=== PATIENT | male | born 1940 | race Caucasian/White ===

== ENCOUNTER → 2016-04-23 | Outpatient (CLI) | payer OTHER, MEDICARE ==
--- NOTE | 2016-04-23 15:36 | DI ---
PA /LATERAL CHEST X-RAY, 04/23/2016 2:19 PM : Clinical History: Pneumonia. Previous Exam: 08/02/2015; 03/17/2016. There is no acute soft tissue or bony abnormality. Heart size is normal. The right diaphragm remains elevated and there is persistent discoid atelectasis in the right midlung field, probably in the righ t middle lobe. This may have developed into atelectatic scarring. Similar discoid changes are present in the left costophrenic angle. No acute infiltrate is present. There is "tram tracking" in both low er lobes consistent with chronic bronchitis or bronchiectasis. Mediastinal structures are normal. The re are no pulmonary nodules. Readin. No acute infiltrate or effusion is present. There is "tram tracking" consistent with chronic bron chitis or bronchiectasis. There has been no significant interval change. 2. Persistent right midlung field and left costophrenic angle discoid atelectasis and these may actu ally represent atelectatic scarring. 3. Persistent elevation of the right hemidiaphragm.
== END ==
LOC: RAD 14:07
PROVIDERS: ATTEND Family Medicine
DX: J18.9 Pneumonia, unspecified organism (principal)
CPT/HCPCS: 71020

== ENCOUNTER 2016-04-25 14:58 | Emergency (ER) | payer OTHER, MEDICARE ==
--- NOTE | 2016-04-25 15:13 | PDOC ---
Neck Pain / Injury HPI - General Chief Complaint: Neck / Back Complaint Stated Complaint: RIGHT SIDED NECK PAIN INTO SHOULDER/BACK Date Seen by Provider: 04/25/16 Time Seen by Provider: 15:13 Source: POSITIVE: Patient Exam Limitations: POSITIVE: No limitations Nurse's Notes Reviewed & Considered: Yes - History of Present Illness Initial Comments: Patient comes in today complaining of right-sided neck pain. Patient states he went to bed last night with his neck hurting mildly when he woke up this morning he is having significant increased pain which has escalated during the day with decreased range of motion secondary to the pain he is now to the point he is unable to put a jacket on without assistance because of pain in his neck. He denies any fever or chills or sweats, nausea vomiting or diarrhea, no rashes. Body Location Affected: REPORTS: Neck Timing: REPORTS: Abrupt, Upon Awakening, Changing Over Time, Getting Worse Severity: Moderate Quality: REPORTS: Cramping, "Pain", Stabbing Duration: <24 hours Context: REPORTS: None Recent Injury: REPORTS: No Location at Time of Onset: REPORTS: Home Modifying Factors: improves with: Movement, Rest (Worse with movement better with rest.) Associated Symptoms: REPORTS: Denies symptoms Similar Symptoms Previously: No Recent Care Received: REPORTS: Denies Any Prior Injuries Related to Current Complaint?: No - Patient Home Medications Home Medications: Home Medications Aspirin [Aspirin EC] 81 mg PO DAILY tab 10/12/12 Multivits,Ca,Min/Iron/FA/Lycop [Centrum Ultra Men's Tablet] 1 tab PO DAILY 09/06 Cholecalciferol (Vitamin D3) [Vitamin D3] 1 tab PO QD #30 tab 11/07/14 Docusate Sodium [Stool Softener] 2 tab PO QHS #60 tab 04/14/15 Ibuprofen 4 tab PO BID #240 tab 04/14/15 Tiotropium Inhalation Cap [Spiriva Inhalation Cap] 18 mcg INH RTDAILY #1 inhaler 08/04/15 Potassium Chloride 1 cap PO 3XW #12 cap 08/24/15 Glipizide/Metformin HCl [Glipizide-Metformin 5-500 mg] 2 tab PO BID #360 tab Fluticasone/Salmeterol [Advair 500-50 Diskus] 1 puff INH BID PRN #3 inhaler Sitagliptin Phosphate [Januvia] 1 tab PO QD #90 tab 12/18/15 Atorvastatin Calcium 1 tab PO QHS #30 tab 03/11/16 Lisinopril 1 tab PO QD #30 tab 03/11/16 Furosemide 1 tab PO 3XW #12 tab 04/15/16 Carvedilol [Coreg] 1 tab PO BID #60 tab 04/16/16 - Patient Allergies Allergies/Adverse Reactions: Allergies Allergy/AdvReac Type Severity Reaction Status Date / Time Tetanus Vaccines and Toxoid AdvReac Severe SWELLING/ Verified 04/25/16 15:13 [Tetanus Vaccines \\E\\T\\E\\ MUSCLE Toxoid] RIGIDITY Past Medical History - heen HEENT History: Cataracts, Hard of Hearing Additional HEENT History: left removed Cardiovascular History: Hypertension, Hyperlipidemia Additional Cardiovasular History: [place]?, CHF? Respiratory History: Pneumonia Gastrointestinal History: Denies History Additional Gastrointestinal History: H/O ULCERS Genitourinary History: Denies History Endocrine History: Type 2 Diabetes (oral) Musculoskeletal History: Arthritis, Gout Prosthesis or Implant: No Neurological History: Denies History Blood Disorders: Denies History Psychiatric History: Denies History History of Sexually Transmitted Diseases: No Cancer History: Denies History History of MDRO: No History of Other Communicable Diseases: No Alcohol Use: Rarely Substance Use Type: None Previous Surgical History: Yes Type / Date of Surgery: APPY Anesthesia Reactions: No Malignant Hyperthermia: No Significant Family History: Heart disease, Cancer, Diabetes, Lung disease ROS - Limitations ROS Limitations: No Limitations Constitution: REPORTS: Denies Symptoms Cardiovascular: REPORTS: Denies Cardiac Symptoms Respiratory: REPORTS: Denies Resp Symptoms Neurological: REPORTS: Denies Neuro Symptoms Gastrointestinal: REPORTS: Denies GI Symptoms Endocrine: REPORTS: Denies Symptoms Musculoskeletal: REPORTS: Muscle Aches, Neck Pain Genitourinary: REPORTS: Denies Symptoms Eyes: REPORTS: Denies Symptoms ENT: REPORTS: Denies Symptoms Skin: REPORTS: Denies Skin Symptoms Lympathic: REPORTS: Denies Lympathic Symptoms Immunologic: POSITIVE: Denies Symptoms Psychiatric: POSITIVE: Denies Psych Symptoms Neck Pain/Injury Exam - General Appearance General Appearance: REPORTS: Alert, Cooperative, No Evidence of Trauma - HEENT HEENT: POSITIVE: Head Inspection Nml, Eyes Inspection Nml, Ears Inspection Nml, Nose Inspection Nml, PERRL, EOMI - Pupil Size Pupil Size: 4 mm: Bilateral - Neck Neck: POSITIVE: Normal Inspection, Thyroid Normal, Muscle Spasm (Right sternocleidomastoid muscle) - Back Back: REPORTS: Normal Inspection, No CVA Tenderness, Non Tender - Respiratory / CVS Respiratory / CVS: POSITIVE: Chest Non Tender, No Ecchymosis, Breath Sounds Normal, No Respiratory Distress, Heart Sounds Normal, Regular Rate/Rhythm - Abdomen Abdomen: Soft: (All Quadrants), Normal Bowel Sounds: (All Quadrants), Denies Tenderness: (All Quadrants) - Skin Skin: REPORTS: Intact, Normal For Race, Warm, Dry, No Rash - Extremities Extremity Assessment: Non-Tender: (ALL), Normal ROM: (ALL), No Edema: (ALL) - Neurological / Psychological Neuro / Psych: POSITIVE: Oriented x3, Motor Normal Neck Pain/Injury Progress - Patient's Progress Pain Medication Addressed: POSITIVE: Yes Status: POSITIVE: Improved MDM / ED Course: Patient was examined, and received oral [place] and Ativan. His symptoms significantly improved. Assessment: Sternocleidomastoid muscle spasm on the right. Plan: Discharge home with prescription for pain medicine and prescription for muscle relaxant. Follow-up with primary care physician. - Consult Counseled: POSITIVE: Patient, Family, RE: DX, RE: Need for F/U Patient Care Time - Estimated PCT Patient Care Time (In Minutes): 10 Vital Signs - Recent Vital Signs Vital Signs: Vital Signs (Last 8 hours) Temp Pulse Resp BP Pulse Ox 04/25/16 14:58 97.7 F 82 22 148/87 91 - VS Reviewed Vital Signs Reviewed: Yes Discharge Clinical Impression: Cervical muscle pain Discharge Disposition: Discharged to Home Condition: Good Patient Instructions Given at Discharge: Cervical Strain (ED)
[2016-04-25] MEDS ORDERED: LORazepam 1 MG TABLET PO ONE (15:37)
[2016-04-25] MEDS ORDERED: HYDROcodone-APAP 5 MG -325 MG TABLET PO SCH (15:45)
[2016-04-25 15:58] VITALS: RESP 22; TEMP 97.7
== END 2016-04-25 16:22 | disposition home or self-care (01) ==
LOC: ER 14:58
DX: M54.2 Cervicalgia (principal); E11.9 Type 2 diabetes mellitus without complications
CPT/HCPCS: 99282; 99283

== ENCOUNTER → 2016-05-16 | Outpatient (CLI) | payer OTHER, MEDICARE ==
[2016-05-16 12:39] LABS: HEMOGLOBIN A1C 7.62 % (4.2-6.0); MEAN BLOOD GLUCOSE (CALC) 167.746 mg/dL
[2016-05-16 12:52] LABS: BUN/CREATININE RATIO 35.71 (6-20); CALCIUM 10.3 mg/dL (8.7-10.7); CREATININE 0.7 mg/dL (0.70-1.50); POTASSIUM 4.8 meq/L (3.8-5.2)
== END ==
LOC: MOB LAB 10:50
DX: E11.9 Type 2 diabetes mellitus without complications (principal); I10 Essential (primary) hypertension; E78.5 Hyperlipidemia, unspecified; E66.9 Obesity, unspecified
CPT/HCPCS: 36415; 80048; 83036; 84443; 99213; G0463

== ENCOUNTER → 2016-08-13 | Outpatient (CLI) | payer OTHER, MEDICARE ==
[2016-08-13 11:44] LABS: BASOPHILS # (AUTO) 0.09 10*3/UL; BASOPHILS % (AUTO) 0.8 % (0-1); EOSINOPHILS # (AUTO) 0.29 10*3/UL; EOSINOPHILS % (AUTO) 2.4 % (0-8); HEMATOCRIT 46.4 % (42.0-52.0); HEMOGLOBIN 15.3 g/dL (14.0-18.0); LYMPHOCYTES # (AUTO) 2.05 10*3/uL; MEAN CORPUSCULAR HEMOGLOBIN 30.1 PG (27-31); MEAN CORPUSCULAR VOLUME 91.3 FL (80-90); MEAN PLATELET VOLUME 9.8 FL (7.4-12.2); MONOCYTES # (AUTO) 0.94 10*3/UL (0.3-0.8); MONOCYTES % (AUTO) 7.9 % (5-15); NEUTROPHILS # (AUTO) 8.48 10*3/UL; NEUTROPHILS % (AUTO) 71.3 % (50-80); RED BLOOD COUNT 5.08 10^6/uL (4.70-6.10)
[2016-08-13 11:46] LABS: PLATELET MORPHOLOGY COMMENT NORMAL MORPHOLOGY (NORM); RBC MORPHOLOGY COMMENT NORMAL MORPHOLOGY (NORM); WBC MORPHOLOGY COMMENT NORMAL MORPHOLOGY (NORM)
[2016-08-13 12:07] LABS: BUN/CREATININE RATIO 31.25 (6-20)
== END ==
LOC: MOB LAB 10:37
DX: E11.9 Type 2 diabetes mellitus without complications (principal); I50.9 Heart failure, unspecified
CPT/HCPCS: 36415; 80048; 85025

== ENCOUNTER 2016-09-06 12:33 | Emergency (ER) | payer OTHER, MEDICARE ==
[2016-09-06] MEDS ORDERED: NORMAL SALINE 10 ML SYRINGE FLUSH IVP PRN (13:07)
[2016-09-06 13:12] VITALS: RESP 22
--- NOTE | 2016-09-06 13:27 | EKG ---
[address] [address] Measurements Intervals [place] Rate: 85 P: 5 [place]: 219 QRS: 38 QRSD: 116 T: 53 QT: 344 QTc: 386 Interpretive Statements SINUS RHYTHM WITH FIRST DEGREE AV BLOCK MODERATE INTRAVENTRICULAR CONDUCTION DELAY [110+ ms QRS DURATION] NONSPECIFIC T-WAVE ABNORMALITY Compared to ECG 03/17/2016 05:36:15 First degree AV block now present Intraventricular conduction delay now present T-wave abnormality now present Sinus tachycardia no longer present Left bundle-branch block no longer present Electronically Signed On 09-09-16 10:09:25 MDT by Dashawn Salazar MD [email or web address]
[2016-09-06 13:40] LABS: BASOPHILS # (AUTO) 0.06 10*3/UL; BASOPHILS % (AUTO) 0.7 % (0-1); EOSINOPHILS # (AUTO) 0.14 10*3/UL; EOSINOPHILS % (AUTO) 1.5 % (0-8); HEMATOCRIT 44.7 % (42.0-52.0); HEMOGLOBIN 14.8 g/dL (14.0-18.0); LYMPHOCYTES # (AUTO) 1.86 10*3/uL; MEAN CORPUSCULAR HGB CONC 33.1 g/dL (33-37); MEAN CORPUSCULAR VOLUME 90.5 FL (80-90); MONOCYTES # (AUTO) 0.75 10*3/UL (0.3-0.8); MONOCYTES % (AUTO) 8.1 % (5-15); NEUTROPHILS # (AUTO) 6.39 10*3/UL; NEUTROPHILS % (AUTO) 69.2 % (50-80); RED BLOOD COUNT 4.94 10^6/uL (4.70-6.10)
[2016-09-06 13:43] LABS: PLATELET MORPHOLOGY COMMENT NORMAL MORPHOLOGY (NORM); RBC MORPHOLOGY COMMENT NORMAL MORPHOLOGY (NORM); WBC MORPHOLOGY COMMENT NORMAL MORPHOLOGY (NORM)
[2016-09-06 13:49] LABS: BUN/CREATININE RATIO 21.25 (6-20); CALCIUM 9.3 mg/dL (8.7-10.7)
--- NOTE | 2016-09-06 14:00 | DI ---
PA /LATERAL CHEST X-RAY, 09/06/2016 1:08 PM : Clinical History: History of CHF. Weakness. Previous Exam: 08/02/2015; 03/17/2016; 04/23/2016. There is no acute soft tissue or bony abnormality. Heart size is normal. The right diaphragm remains elevated and there is some atelectasis in the region of the right middle lobe. This has been present on all prior films without change in this probably represents atelectatic scarring. No acute infiltra te or effusion is present. Mediastinal structures are normal. There are no pulmonary nodules. Readin. There is no acute infiltrate or effusion. 2. Probable atelectatic scarring of the right middle lobe.
--- NOTE | 2016-09-06 14:04 | DI ---
CT HEAD SCAN WITHOUT IV CONTRAST, 09/06/2016 1:08 PM : Clinical History: Head trauma. The patient fell. Previous Exam: None at this facility. Scans are obtained from the foramen magnum to the vertex without IV contrast. The 4th, 3rd, and lateral ventricles are of normal size, shape, position, and contour for the patient 's age. There is no evidence of an acute intracranial hemorrhagic focus. There is a 3 mm lucent area in the right basal ganglia that may represent an old lacunar infarct. No definite stigmata of small v essel ischemic disease is noted in the periventricular white matter in the watershed territory. There is mild to moderate cerebellar and cerebral atrophy. There are no extracerebral mantles or shift of the midline structures. Bone window evaluation is normal. The paranasal sinuses are normal. READIN. There is no acute intracranial hemorrhagic focus. 2. 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 3. Mild to moderate cerebellar and cerebral atrophy.
--- NOTE | 2016-09-06 14:34 | DI ---
DUPLEX COLOR DOPPLER CAROTID ULTRASOUND, 09/06/2016 1:09 PM: Clinical History: Near syncope with head turning. Previous Exam: None at this facility. Technique: 2D real time imaging is supplemented with duplex color doppler ultrasound imaging. RIGHT CAROTID ARTERY: 2D real time imaging of the right carotid system shows minimal intimal thickening of the common carot id artery with a small calcified plaque in the carotid bulb. There is a small calcified plaque at the origin of the right internal carotid artery. Peak systolic velocities through the right common carot id, the external carotid, and the internal carotid are 75 cm/s, 100 cm/s, and 70 cm/s, respectively. All values correspond to diameter stenoses of 0-49%. LEFT CAROTID ARTERY: 2D real time imaging of the left carotid system shows minimal intimal thickening of the left common c arotid artery in the proximal and middle portions with calcified plaques in the distal third as well as in the carotid bulb. Peak systolic velocities through the left common carotid, the external caroti d, and the internal carotid are 91 cm/s, 110 cm/s, and 79 cm/s, respectively. All values correspond t o diameter stenoses of 0-49%. VERTEBRAL ARTERIES: There is antegrade flow through both vertebral arteries Cardiac rhythm is regular. Peak systolic [place] through the visualized portions of the right and left vertebral arteries are 34 cm/s and 38 cm /s, respectively. Both values correspond to diameter stenoses of 0-49%. Readin. There is no hemodynamically significant stenosis of either carotid system. 2. There is antegrade flow through both vertebral arteries. Cardiac rhythm is regular.
--- NOTE | 2016-09-06 15:26 | PDOC ---
Syncope/Near-Syncope HPI - General Chief Complaint: Head Problem / Injury Stated Complaint: fell 2 days ago, syncope when laying down Date Seen by Provider: 09/06/16 Time Seen by Provider: 12:25 Source: POSITIVE: Patient, Other ([id number]) Exam Limitations: POSITIVE: No limitations Nurse's Notes Reviewed & Considered: Yes - History of Present Illness Initial Comments: The patient is a 75-year-old male who is brought to the emergency room by his [id number]. Patient states that approximately 3-1/2 days ago he was working in his garden and states he "fell over backwards"and struck the back of his head on a concrete patio. Patient had a similar episode in the past, which required suturing of the laceration of the scalp. Patient states that he has had episodes of "feeling like I'm going to pass out", especially when he is lying down or rotates his body either to the right or the left. Patient has a history of adult onset diabetes mellitus for which he takes Sitaglipin and glipizide/metformin. He also has a history of congestive heart failure for which he takes furosemide and carvidilol. He also takes Spiriva inhaler and Advair, potassium supplements, lisinopril and aspirin daily. Patient denies any headache. No focal neurologic symptoms. No EENT symptoms. He denies any chest pain or dyspnea. Body Location Affected: REPORTS: Scalp (Contusion to back of head from recent fall), Other (Syncope/near syncope as above) Timing: REPORTS: Abrupt (As above), Intermittent Duration: <1 week (Patient states he's been symptomatic intermittently for the last 3-4 days) Severity: Moderate Quality: REPORTS: Other (Patient denies any pain anywhere) Context: REPORTS: Lying Down, Standing Symptoms Prior to Episode: DENIES: None, Headache, Lightheaded, Visual Disturbance, Nausea, Vomiting, Chest Pain, Palpitations, Racing Heart, Abd Pain , Back Pain, Long Period of Standing, Other Duration of Preceding Symptoms (in Minutes): 1 Character of Event(s): REPORTS: Collapsed, [place] Faint, Almost Passed Out, Other (May have had a syncopal episode with his fall 3-1/2 days ago) Duration of LOC (minutes): 0 [employer]: No Associated Symptoms: REPORTS: None (feels back to nml) Recently seen/treated/hospitalized: No Any Prior Injuries Related to Current Complaint?: No - Patient Home Medications Home Medications: Home Medications Aspirin [Aspirin EC] 81 mg PO DAILY tab 10/12/12 Multivits,Ca,Min/Iron/FA/Lycop [Centrum Ultra Men's Tablet] 1 tab PO DAILY 09/06 Cholecalciferol (Vitamin D3) [Vitamin D3] 1 tab PO QD #30 tab 11/07/14 Docusate Sodium [Stool Softener] 2 tab PO QHS #60 tab 04/14/15 Ibuprofen 4 tab PO BID #240 tab 04/14/15 Tiotropium Inhalation Cap [Spiriva Inhalation Cap] 18 mcg INH RTDAILY #1 inhaler 08/04/15 Fluticasone/Salmeterol [Advair 500-50 Diskus] 1 puff INH BID PRN #3 inhaler Sitagliptin Phosphate [Januvia] 1 tab PO QD #90 tab 12/18/15 Atorvastatin Calcium 1 tab PO QHS #30 tab 03/11/16 Lisinopril 1 tab PO QD #30 tab 03/11/16 Furosemide 1 tab PO 3XW #12 tab 04/15/16 Carvedilol [Coreg] 1 tab PO BID #60 tab 04/16/16 Potassium Chloride 1 cap PO 3XW #12 cap 06/13/16 Glipizide/Metformin HCl [Glipizide-Metformin 5-500 Mg] 2 tab PO BID #360 tab - Patient Allergies Allergies/Adverse Reactions: Allergies Allergy/AdvReac Type Severity Reaction Status Date / Time Tetanus Vaccines and Toxoid AdvReac Severe SWELLING/ Verified 09/06/16 12:39 [Tetanus Vaccines MUSCLE \\E\\E\\E\\T\\E\\E\\E\\ Toxoid] RIGIDITY Past Medical History - heen HEENT History: Cataracts, Hard of Hearing Additional HEENT History: left removed Cardiovascular History: Hypertension, CHF, Hyperlipidemia Additional Cardiovasular History: [place]?, CHF? Respiratory History: COPD, Pneumonia Gastrointestinal History: Denies History Additional Gastrointestinal History: H/O ULCERS Genitourinary History: Denies History Endocrine History: Type 2 Diabetes (oral) Musculoskeletal History: Arthritis, Gout Prosthesis or Implant: No Additional Musculoskeletal History: BRUISING AND SCABBING TO THE BACK OF THE HEAD FROM AND ASSOCIATED FALL. PATIENT FELL BACKWARDS AND STRUCK HIS HEAD ON HIS CONCRETE PATIO Neurological History: Denies History Blood Disorders: Denies History Psychiatric History: Denies History History of Sexually Transmitted Diseases: No Male Reproductive History: Denies History Cancer History: Denies History In Past Year Been Physically Harmed or Verbally Threatened: No History of MDRO: No History of Other Communicable Diseases: No Tobacco Use: Never Smoker Alcohol Use: Rarely Substance Use Type: None Previous Surgical History: Yes Type / Date of Surgery: APPY Anesthesia Reactions: No Malignant Hyperthermia: No Significant Family History: Heart disease, Cancer, Diabetes, Lung disease Past Medical History Reviewed: Reviewed - No Changes ROS - Limitations ROS Limitations: No Limitations Constitution: REPORTS: Weakness Cardiovascular: REPORTS: Denies Cardiac Symptoms Respiratory: REPORTS: Denies Resp Symptoms Neurological: REPORTS: Fainting Gastrointestinal: REPORTS: Denies GI Symptoms Endocrine: REPORTS: Denies Symptoms Musculoskeletal: REPORTS: Denies MS Symptoms Genitourinary: REPORTS: Denies Symptoms Eyes: REPORTS: Denies Symptoms ENT: REPORTS: Denies Symptoms Skin: REPORTS: Other (Contusion and abrasion back of head from recent fall as above) Lympathic: REPORTS: Denies Lympathic Symptoms Immunologic: POSITIVE: Denies Symptoms Psychiatric: POSITIVE: Denies Psych Symptoms Syncope / Near-Syncope Exam - General Appearance General Appearance: POSITIVE: Alert, Cooperative, No Acute Distress. NEGATIVE: No Evidence of Trauma (Contusion/abrasion back of head from recent fall) - HEENT HEENT: POSITIVE: Head Inspection Nml, Eyes Inspection Nml, Ears Inspection Nml, Nose Inspection Nml, Oral/Dental Inspect. Nml, Pharynx Inspect. Nml, PERRL, EOMI - Pupil Size Pupil Size: 4 mm: Bilateral (PERRLA) - Neck / Back Neck/Back: POSITIVE: Supple, Non-Tender, No Carotid Bruit - Respiratory Respiratory: POSITIVE: No Respiratoy Distress, Breath Sounds Normal, No Pleuritic Chest Pain - Cardiovascular Cardiovascular: POSITIVE: Regular Rate and Rhythm, Heart Sounds Normal, Equal Pulses, Strong Pulses Peripheral Pulses: Radial (R): 2+, Radial (L): 2+ - Abdomen Abdomen: Soft: (All Quadrants), Normal Bowel Sounds: (All Quadrants), Denies Tenderness: (All Quadrants), No Splenomegaly: (All Quadrants), No Hepatomegaly: (All Quadrants), No Guarding: (All Quadrants), No Rebound: (All Quadrants), No Palpable Pulse: (All Quadrants), No Palpabale Mass: (All Quadrants), No Distention: (All Quadrants), No Rigidity: (All Quadrants) - Skin Skin: POSITIVE: Other (Normal except for contusion/abrasion back of head from recent fall) - Extremities Extremity: Non-Tender: (All Extremities), Normal ROM: (All Extremities), Normal Inspection: (All Extremities) - Neuro / Psych Higher Functions: POSITIVE: Oriented to Person, Oriented to Place, Oriented to Time, Normal Speech, Normal Cognition, Appropriate Mood, Appropriate Affect. NEGATIVE: Disoriented to Person, Disoriented to Place, Disoriented to Time, Speech Abnormalities, Cognition Abnormalities, Depressed Mood, Depressed Affect , Abnml Response to Command, No Response to Command, Eyes Open to Command, Slow Response to Command, Inapp Response to Command, Expressive Aphasia, Receptive Aphasia, Abnml Response to Pain, Withdraws to Pain, Flexor to Pain, Extensor to Pain, No Response to Pain, Dysarthria, Other Cranial Nerves: POSITIVE: Normal As Tested, No Evidence of Acute CVA Cerebellar: POSITIVE: Normal As Tested Sensorimotor: POSITIVE: No Motor Deficits, No Sensory Deficits, Reflexes Normal , Symmetrical Images - Head Head: 1 - Contusion/abrasion Syncope/Near-Syncope Progress - Results Reviewed by me Xrays/CTs/US Reviewed by me: Yes Discussed with Radiologist: Yes Radiology Findings: CT scan head without contrast read as normal by radiologist. Carotid artery ultrasound is read by radiologist as showing no hemodynamically significant stenosis of either carotid system with antegrade flow through both vertebral arteries. Chest x-ray normal. Lab Results Reviewed: Yes (elevated BNP) Lab Results:: Laboratory Results 09/06/16 Range/Units 13:37 WBC 9.23 (4.8-10.8) 10^3/uL RBC 4.94 (4.70-6.10) 10^6/uL Hgb 14.8 (14.0-18.0) g/dL Hct 44.7 (42.0-52.0) % MCV 90.5 H (80-90) FL MCH 30.0 (27-31) PG MCHC 33.1 (33-37) g/dL RDW Std Deviation 44.8 (39-50) fL RDW Coeff of Sandra 13.8 (11.5-14.5) % Plt Count 267 (140-350) 10*3/uL MPV 9.0 (7.4-12.2) FL Immature Gran % (Auto) 0.3 (0-5) % Neut % (Auto) 69.2 (50-80) % Lymph % (Auto) 20.2 (10-50) % [place] % (Auto) 8.1 (5-15) % Eos % (Auto) 1.5 (0-8) % Baso % (Auto) 0.7 (0-1) % Immature Gran # (Auto) 0.03 10*3/UL Neut # (Auto) 6.39 10*3/UL Lymph # (Auto) 1.86 10*3/uL [place] # (Auto) 0.75 (0.3-0.8) 10*3/UL Eos # (Auto) 0.14 10*3/UL Baso # (Auto) 0.06 10*3/UL WBC Morphology Comment Normal morphology (NORM) Plt Morphology Comment Normal morphology (NORM) RBC Morph Comment Normal morphology (NORM) Sodium 136 (135-145) meq/L Potassium 4.6 (3.8-5.2) meq/L Chloride 102 (98-112) meq/L Carbon Dioxide 24 (23-33) meq/L Anion Gap 10 (5-20) BUN 17 (7-22) mg/dL Creatinine 0.8 (0.70-1.50) mg/dL Estimated GFR (>60 ml/min/1.73m(2)) BUN/Creatinine Ratio 21.25 H (6-20) Glucose 210 H (78-110) mg/dL Calculated Osmolality 289.0 (267-292) mOsm/kg Calcium 9.3 (8.7-10.7) mg/dL Total Bilirubin 0.8 (0.3-1.2) mg/dL AST 30 (21-57) IU/L ALT 34 (21-72) IU/L Alkaline Phosphatase 65 (38-126) IU/L Troponin I < 0.012 (< 0.040) ng/mL NT-Pro-B Natriuret Pep 1750 H (0-450) PG/ML Total Protein 7.8 (6.1-8.0) g/dL Albumin 4.0 (3.5-4.8) g/dL Globulin 3.9 (2.50-4.10) g/dL Albumin/Globulin Ratio 1.00 L (1.3-2.0) mg/g TSH 1.98 (0.2700-4.2000) uIU/mL EKG Interpreted/Reviewed By Me:: Yes (initial EKG shows normal sinus rhythm with interventricular conduction luc) EKG Interpretation:: POSITIVE: Normal Sinus Rhythm, Normal Rate, Normal ST/T, Abnormal EKG, Repeat EKG (Patient was kept on monitor and storage bin tender. 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 Patient would intermittently go into a left bundle-branch block with a first-degree A-V block and then would have one or 2 PVCs and would go back into his original rhythm. This change was documented on 3 electrocardiograms.). NEGATIVE: Normal Intervals (Interventricular conduction delay), Normal Junction, Normal QRS - Patient's Progress Pain Medication Addressed: POSITIVE: Not Applicable School/Work Release Addressed: POSITIVE: Not Applicable Re-examine Time: 14:45 Re-Examine Comment: I'm concerned that the patient's episodes of syncope/near syncope could be due to dysrhythmia, especially complete heart block, in view of the patient's documented change in conduction from interventricular conduction delay to left ventricular bundle-branch block associated with a first -degree atrioventricular block. Discussed case with Dr. Katz, cardiology at [facility], and patient is transferred to that facility for further evaluation. Status: POSITIVE: Unchanged - Consult Consult (If Yes, Name of Consulting MD & Time Called): Yes (Dr. sherman, cardiology, 1500) Consulting MD will see pt:: POSITIVE: Recommended Transfer Counseled: POSITIVE: Patient, Family, RE: Lab Results, RE: Radiology Results, RE : DX, RE: Need for F/U Patient Care Time - Estimated PCT Patient Care Time (In Minutes): 65 Vital Signs - Recent Vital Signs Vital Signs: Vital Signs (Last 8 hours) Temp Pulse Pulse Pulse Pulse Resp BP 09/06/16 13:16 88 92 100 148/84 09/06/16 12:34 97.7 F 92 22 BP BP BP Pulse Ox 09/06/16 13:16 140/76 118/68 09/06/16 12:34 138/69 91 - VS Reviewed Vital Signs Reviewed: Yes Discharge Clinical Impression: Near syncope, Congestive heart failure, Abnormal electrocardiography Discharge Disposition: Transferred to Short Term Facility Condition: Fair Date Decision to Transfer to Another Facility: 09/06/16 Time Decision to Transfer to Another Facility: 14:50
[2016-09-06 15:49] VITALS: TEMP 97.8
--- NOTE | 2016-09-06 15:58 | EKG ---
[address] [place] [address] Measurements Intervals [place] Rate: 83 P: 0 [place]: 188 QRS: -35 QRSD: 170 T: 103 QT: 421 QTc: 461 Interpretive Statements SINUS RHYTHM MARKED LEFT AXIS DEVIATION [QRS AXIS < -30] LEFT BUNDLE BRANCH BLOCK [120+ ms QRS DURATION, 80+ ms Q/S IN V1/V2, 85+ ms R IN I/aVL/V5/V6] Compared to ECG 09/06/2016 13:25:13 Left-axis deviation now present Left bundle-branch block now present First degree AV block no longer present Intraventricular conduction delay no longer present T-wave abnormality no longer present Electronically Signed On 09-09-16 10:10:24 MDT by Dashawn Salazar MD [id number]
== END 2016-09-06 15:40 | disposition short-term general hospital (02) ==
LOC: ER 12:33
DX: R55 Syncope and collapse (principal); I11.9 Hypertensive heart disease without heart failure; I50.9 Heart failure, unspecified; R94.31 Abnormal electrocardiogram [ECG] [EKG]; S00.01XA Abrasion of scalp, initial encounter; S00.03XA Contusion of scalp, initial encounter; R79.89 Other specified abnormal findings of blood chemistry; E78.5 Hyperlipidemia, unspecified; E11.9 Type 2 diabetes mellitus without complications; W18.39XA Other fall on same level, initial encounter
CPT/HCPCS: 70450; 71020; 80053; 83880; 84443; 84484; 85025; 93005; 93010; 93880; 99284

== ENCOUNTER 2016-09-19 07:08 | Emergency (ER) | payer OTHER, MEDICARE ==
[2016-09-19] MEDS ORDERED: MECLIZINE 25 MG CHEWABLE TABLET PO ONE (07:38)
[2016-09-19] MEDS ORDERED: ONDANSETRON 4 MG/2 ML VIAL IVP ONE (07:38)
[2016-09-19] MEDS ORDERED: Sodium Chloride 0.9% 1,000 ML PRIMARY IV ONE (07:38)
--- NOTE | 2016-09-19 07:41 | EKG ---
[address] [address] Measurements Intervals [place] Rate: 82 P: 7 W[place]: 215 QRS: 19 QRSD: 113 T: 0 QT: 337 QTc: 376 Interpretive Statements SINUS RHYTHM WITH FIRST DEGREE AV BLOCK WITH OCCASIONAL VENTRICULAR PREMATURE COMPLEXES WITH MARKED RHYTHM IRREGULARITY, POSSIB MODERATE INTRAVENTRICULAR CONDUCTION DELAY [105+ ms QRS DURATION, 80+ ms Q/S IN V1/V2, NO Q AND 60+ ms R IN I/aVL/V5/V6] NONSPECIFIC T-WAVE ABNORMALITY Compared to ECG 09/06/2016 14:33:48 Ventricular premature complex(es) now present First degree AV block now present Intraventricular conduction delay now present T-wave abnormality now present Left-axis deviation no longer present Left bundle-branch block no longer present Electronically Signed On 09-19-16 13:23:48 MDT by Dashawn Salazar MD [id number]
--- NOTE | 2016-09-19 07:44 | PDOC ---
Dizziness HPI - General Chief Complaint: Neurological Complaints Stated Complaint: weak, dizziness Date Seen by Provider: 09/19/16 Time Seen by Provider: 07:39 Source: POSITIVE: Patient Exam Limitations: POSITIVE: No limitations Nurse's Notes Reviewed & Considered: Yes - History of Present Illness Initial Comments: This pleasant 75-year-old male comes in today with a chief complaint of dizziness. Patient has been having dizziness ongoing since which was 16 days ago. He spent a week in the hospital at [place], was discharged a week ago on diazepam 2.5 mg, this was increased yesterday to 5 mg. He woke up this morning, as began to get up his dizziness was significantly worse. He states when he lies down flat his dizziness is significantly worse and that he is afraid he will pass out. If he lies on his left or right side or is sitting up he has no problems with near syncope. He denies any headache, changes in his vision, sore throat, no chest pain or cough, he does have shortness of breath. He denies any nausea vomiting or diarrhea, no abdominal pain, no hematuria or dysuria, no rashes. Body Location Affected: REPORTS: Head Timing: REPORTS: Constant, Getting Worse Duration: >1 week Severity: Severe Context: REPORTS: Fall, Recent Head Injury/Trauma Quality: REPORTS: Other (Dizziness) Associated Symptoms: REPORTS: Light Headedness Current Ability to Walk/Stand: REPORTS: Off Balance Usual Ability to Walk/Stand: REPORTS: Walks w/o Assistance Aggrevated by: REPORTS: Nothing Similar Symptoms Previously: Yes Recently seen/treated/hospitalized: Yes Any Prior Injuries Related to Current Complaint?: No - Patient Home Medications Home Medications: Home Medications Aspirin [Aspirin EC] 81 mg PO DAILY tab 10/12/12 Multivits,Ca,Min/Iron/FA/Lycop [Centrum Ultra Men's Tablet] 1 tab PO DAILY 09/06 Cholecalciferol (Vitamin D3) [Vitamin D3] 1 tab PO QD #30 tab 11/07/14 Docusate Sodium [Stool Softener] 2 tab PO QHS #60 tab 04/14/15 Ibuprofen 4 tab PO BID #240 tab 04/14/15 Sitagliptin Phosphate [Januvia] 1 tab PO QD #90 tab 12/18/15 Furosemide 1 tab PO 3XW #12 tab 04/15/16 Carvedilol [Coreg] 1 tab PO BID #60 tab 04/16/16 Potassium Chloride 1 cap PO 3XW #12 cap 06/13/16 Glipizide/Metformin HCl [Glipizide-Metformin 5-500 Mg] 2 tab PO BID #360 tab Atorvastatin Calcium 1 tab PO QHS #30 tab 09/09/16 Lisinopril 1 tab PO QD #30 tab 09/09/16 Diazepam 5 mg PO BID 09/19/16 - Patient Allergies Allergies/Adverse Reactions: Allergies Allergy/AdvReac Type Severity Reaction Status Date / Time Tetanus Vaccines and Toxoid AdvReac Severe SWELLING/ Verified 09/19/16 07:26 [Tetanus Vaccines MUSCLE \E\E\E\T\E\E\E\ Toxoid] RIGIDITY Past Medical History - heen HEENT History: Cataracts, Hard of Hearing Additional HEENT History: left removed Cardiovascular History: Hypertension, CHF, Hyperlipidemia Additional Cardiovasular History: LA?, CHF? Respiratory History: COPD, Pneumonia Gastrointestinal History: Denies History Additional Gastrointestinal History: H/O ULCERS Genitourinary History: Denies History Endocrine History: Type 2 Diabetes (oral) Musculoskeletal History: Arthritis, Gout Prosthesis or Implant: No Additional Musculoskeletal History: BRUISING AND SCABBING TO THE BACK OF THE HEAD FROM AND ASSOCIATED FALL. PATIENT FELL BACKWARDS AND STRUCK HIS HEAD ON HIS CONCRETE PATIO Neurological History: Denies History Blood Disorders: Denies History Psychiatric History: Denies History History of Sexually Transmitted Diseases: No Cancer History: Denies History History of MDRO: No History of Other Communicable Diseases: No Alcohol Use: Rarely Substance Use Type: None Previous Surgical History: Yes Type / Date of Surgery: APPY Anesthesia Reactions: No Malignant Hyperthermia: No Significant Family History: Heart disease, Cancer, Diabetes, Lung disease ROS - Limitations ROS Limitations: No Limitations Constitution: REPORTS: Denies Symptoms Cardiovascular: REPORTS: Denies Cardiac Symptoms Respiratory: REPORTS: Shortness Of Breath Neurological: REPORTS: Dizziness Gastrointestinal: REPORTS: Denies GI Symptoms Endocrine: REPORTS: Denies Symptoms Musculoskeletal: REPORTS: Denies MS Symptoms Genitourinary: REPORTS: Denies Symptoms Eyes: REPORTS: Denies Symptoms ENT: REPORTS: Denies Symptoms Skin: REPORTS: Denies Skin Symptoms Lympathic: REPORTS: Denies Lympathic Symptoms Immunologic: POSITIVE: Denies Symptoms Psychiatric: POSITIVE: Denies Psych Symptoms Dizziness PE - General Appearance General Appearance: POSITIVE: No Acute Distress, Alert, Moderate Distress - HEENT HEENT: POSITIVE: Head Inspection Nml, Eyes Inspection Nml, Ears Inspection Nml, Nose Inspection Nml, Oral/Dental Inspect. Nml, Pharynx Inspect. Nml, PERRL, EOMI - Pupil Size Pupil Size: 4 mm: Bilateral - Neck Neck: POSITIVE: Supple - Respiratory Respiratory: POSITIVE: No Respiratory Distress, Breath Sounds Normal - Cardiovascular Cardiovascular: POSITIVE: Regular Rate & Rhythm, No Murmur, No Gallop, Heart Sounds Normal - Abdomen Abdomen: Soft: (All Quadrants), Normal Bowel Sounds: (All Quadrants), Denies Tenderness: (All Quadrants), No Splenomegaly: (All Quadrants), No Hepatomegaly: (All Quadrants), No Guarding: (All Quadrants), No Rebound: (All Quadrants), No Palpable Pulse: (All Quadrants), No Palpabale Mass: (All Quadrants), No Rigidity : (All Quadrants), Distention: (All Quadrants) - Skin Skin: POSITIVE: Intact, Normal For Race, Warm, Dry, No Rash - Extremities Extremity: Non-Tender: (All Extremities), Normal ROM: (All Extremities), Normal Inspection: (All Extremities), Pelvis Stable: (All Extremities) - Neuro/Psych Neuro/Psych: POSITIVE: Alert, Affect Appropriate, Mood Appropriate, Normal Speech, Normal Cognition Cranial Nerves: POSITIVE: Normal As Tested, No Evidence of Acute CVA Cerebellar: POSITIVE: Normal As Tested Sensorimotor: POSITIVE: No Motor Deficits, No Sensory Deficits, Reflexes Normal Reflexes: Patellar (R): 2+, Patellar (L): 2+, Radial (R): 2+, Radial (L): 2+ Dizziness Progress - Results Reviewed by me Xrays/CTs/US Reviewed by me: Yes Discussed with Radiologist: Yes Lab Results Reviewed: Yes Lab Results:: Laboratory Results 09/19/16 Range/Units 07:15 WBC 9.74 (4.8-10.8) 10^3/uL RBC 4.77 (4.70-6.10) 10^6/uL Hgb 14.7 (14.0-18.0) g/dL Hct 43.6 (42.0-52.0) % MCV 91.4 H (80-90) FL MCH 30.8 (27-31) PG MCHC 33.7 (33-37) g/dL RDW Std Deviation 46.5 (39-50) fL RDW Coeff of Sandra 14.2 (11.5-14.5) % Plt Count 263 (140-350) 10*3/uL MPV 9.5 (7.4-12.2) FL Immature Gran % (Auto) 0.3 (0-5) % Neut % (Auto) 68.8 (50-80) % Lymph % (Auto) 18.1 (10-50) % [place] % (Auto) 9.1 (5-15) % Eos % (Auto) 2.8 (0-8) % Baso % (Auto) 0.9 (0-1) % Immature Gran # (Auto) 0.03 10*3/UL Neut # (Auto) 6.70 10*3/UL Lymph # (Auto) 1.76 10*3/uL [place] # (Auto) 0.89 H (0.3-0.8) 10*3/UL Eos # (Auto) 0.27 10*3/UL Baso # (Auto) 0.09 10*3/UL WBC Morphology Comment Normal morphology (NORM) Plt Morphology Comment Normal morphology (NORM) RBC Morph Comment Normal morphology (NORM) Sodium 139 (135-145) meq/L Potassium 4.7 (3.8-5.2) meq/L Chloride 104 (98-112) meq/L Carbon Dioxide 24 (23-33) meq/L Anion Gap 11 (5-20) BUN 26 H (7-22) mg/dL Creatinine 0.8 (0.70-1.50) mg/dL Estimated GFR (>60 ml/min/1.73m(2)) BUN/Creatinine Ratio 32.50 H (6-20) Glucose 234 H (78-110) mg/dL Calculated Osmolality 300.0 H (267-292) mOsm/kg Calcium 9.5 (8.7-10.7) mg/dL Magnesium 1.1 L (1.6-2.4) mg/dL Total Bilirubin 0.6 (0.3-1.2) mg/dL AST 29 (21-57) IU/L ALT 32 (21-72) IU/L Alkaline Phosphatase 99 (38-126) IU/L C-Reactive Protein 1.6 H (0.0-0.9) mg/dL NT-Pro-B Natriuret Pep 453 H (0-450) PG/ML Total Protein 7.1 (6.1-8.0) g/dL Albumin 3.6 (3.5-4.8) g/dL Globulin 3.5 (2.50-4.10) g/dL Albumin/Globulin Ratio 1.00 L (1.3-2.0) mg/g TSH 3.11 (0.2700-4.2000) uIU/mL Free T4 1.25 (0.93-1.71) ng/dL EKG Interpretation:: POSITIVE: Normal Sinus Rhythm (82 bpm) - Patient's Progress Pain Medication Addressed: POSITIVE: Not Applicable Re-Examine Time:: 08:59 Status: POSITIVE: Improved MDM / ED Course: Patient was evaluated, an IV started, blood drawn and sent to the lab for studies, EKG and radiological studies were obtained. EKG per my interpretation shows a sinus rhythm with occasional PVCs and intermittent left bundle branch block. Findings: CBC is unremarkable, comprehensive metabolic panel shows elevated glucose, magnesium is low at 1.1, CT scan of his head shows no acute intracranial abnormalities. EKG shows intermittent left bundle branch block. TSH and T4 are normal. BNP is slightly elevated at 454. Assessment: #1 Dizziness, #2 hypomagnesemia, #3 intermittent left bundle branch block. Plan: I discussed this case with Dr. Charly Porter, aircraft sales representative in [facility], who feels that dizziness is probably not related to a left bundle branch block particularly since there is no change in his heart rate. Patient received meclizine, 2 g of magnesium, and a liter of normal saline. He was ambulated and felt much better. He is to follow-up with Dr. Nieves. CVA/Syncope Quality Measure Initiative: POSITIVE: EKG - Consult Counseled: POSITIVE: Patient, Family, RE: Lab Results, RE: Radiology Results, RE : DX, RE: Need for F/U Patient Care Time - Estimated PCT Patient Care Time (In Minutes): 45 Vital Signs - Recent Vital Signs Vital Signs: Vital Signs (Last 8 hours) Temp Pulse Resp BP Pulse Ox 09/19/16 07:12 96.8 F 84 21 118/84 88 - VS Reviewed Vital Signs Reviewed: Yes Discharge Clinical Impression: Dehydration, Dizziness, Hypomagnesemia Discharge Disposition: Discharged to Home Condition: Stable Patient Instructions Given at Discharge: Vertigo (ED), Hypomagnesemia (ED), Heart Block (ED)
[2016-09-19 07:57] LABS: BASOPHILS # (AUTO) 0.09 10*3/UL; BASOPHILS % (AUTO) 0.9 % (0-1); EOSINOPHILS # (AUTO) 0.27 10*3/UL; EOSINOPHILS % (AUTO) 2.8 % (0-8); HEMATOCRIT 43.6 % (42.0-52.0); HEMOGLOBIN 14.7 g/dL (14.0-18.0); LYMPHOCYTES # (AUTO) 1.76 10*3/uL; MEAN CORPUSCULAR HEMOGLOBIN 30.8 PG (27-31); MEAN CORPUSCULAR HGB CONC 33.7 g/dL (33-37); MEAN CORPUSCULAR VOLUME 91.4 FL (80-90); MEAN PLATELET VOLUME 9.5 FL (7.4-12.2); MONOCYTES # (AUTO) 0.89 10*3/UL (0.3-0.8); MONOCYTES % (AUTO) 9.1 % (5-15); NEUTROPHILS % (AUTO) 68.8 % (50-80); RED BLOOD COUNT 4.77 10^6/uL (4.70-6.10)
[2016-09-19 07:58] VITALS: RESP 21; TEMP 96.8
[2016-09-19 07:58] LABS: PLATELET MORPHOLOGY COMMENT NORMAL MORPHOLOGY (NORM); RBC MORPHOLOGY COMMENT NORMAL MORPHOLOGY (NORM); WBC MORPHOLOGY COMMENT NORMAL MORPHOLOGY (NORM)
[2016-09-19 08:07] LABS: BUN/CREATININE RATIO 32.5 (6-20); C-REACTIVE PROTEIN 1.6 mg/dL (0.0-0.9); CALCIUM 9.5 mg/dL (8.7-10.7); MAGNESIUM 1.1 mg/dL (1.6-2.4); SERUM ALBUMIN 3.6 g/dL (3.5-4.8)
[2016-09-19] MEDS ORDERED: Magnesium Sulfate 2gm (Premix) 2 GM in Premix 1 BAG IV ONE (08:09)
[2016-09-19 08:21] LABS: FREE T4 (FREE THYROXINE) 1.25 ng/dL (0.93-1.71)
--- NOTE | 2016-09-19 08:40 | EKG ---
[address] [address] Measurements Intervals [place] Rate: 89 P: 25 [place]: 217 QRS: 10 QRSD: 165 T: 97 QT: 406 QTc: 452 Interpretive Statements SINUS RHYTHM WITH FIRST DEGREE AV BLOCK WITH OCCASIONAL ECTOPIC PREMATURE COMPLEXES LEFT BUNDLE BRANCH BLOCK [120+ ms QRS DURATION, 80+ ms Q/S IN V1/V2, 85+ ms R IN I/aVL/V5/V6] Compared to ECG 09/19/2016 07:13:07 Left bundle-branch block now present Ventricular premature complex(es) no longer present Intraventricular conduction delay no longer present T-wave abnormality no longer present Electronically Signed On 09-19-16 13:24:09 MDT by Dashawn Salazar MD [id number]
--- NOTE | 2016-09-19 08:54 | DI ---
CT HEAD W/O CONTRAST,09/19/2016 7:38 AM: Clinical History: Dizziness. Previous Exam: September 06, 2016 Findings: Multiple helically acquired CT images are obtained through the brain without contrast, and demonstrat e diffuse age-related volume loss. There is no mass, hemorrhage or midline shift. Paranasal sinuses a re unremarkable. The mastoid air cells are unremarkable. Impression: No acute intracranial pathology.
--- NOTE | 2016-09-19 08:57 | DI ---
XR CXR 1VW,09/19/2016 7:38 AM: Clinical History: Dizziness Previous Exam: September 06, 2016 Findings: A single frontal radiograph of the chest is obtained, and demonstrates stable subsegmental atelectasi s in the right lung base. The cardiomediastinum and bony thorax are unremarkable. Impression: Airspace disease within the right lung base otherwise unremarkable.
== END 2016-09-19 09:37 | disposition home or self-care (01) ==
LOC: ER 07:08
DX: R42 Dizziness and giddiness (principal); E83.42 Hypomagnesemia; E86.0 Dehydration; E11.9 Type 2 diabetes mellitus without complications; I10 Essential (primary) hypertension; E78.5 Hyperlipidemia, unspecified
CPT/HCPCS: 70450; 71010; 80053; 82948; 83735; 83880; 84439; 84443; 85025; 86140; 93005; 93010; 96365; 96375; 99284; J2405; J3475; J7030

== ENCOUNTER 2016-09-19 21:30 | Observation (INO) | payer OTHER, MEDICARE ==
[2016-09-19] MEDS ORDERED: Sodium Chloride 0.9% 1,000 ML PRIMARY IV ONE (21:53)
[2016-09-19] MEDS ORDERED: NORMAL SALINE 10 ML SYRINGE FLUSH IVP PRN (21:53)
--- NOTE | 2016-09-19 21:58 | EKG ---
[address] [place] [address] Measurements Intervals [place] Rate: 95 P: 0 SC: 192 QRS: 26 QRSD: 114 T: 24 QT: 334 QTc: 386 Interpretive Statements SINUS RHYTHM MODERATE INTRAVENTRICULAR CONDUCTION DELAY] NONSPECIFIC T-WAVE ABNORMALITY Compared to ECG 09/19/2016 07:57:51 Intraventricular conduction delay now present T-wave abnormality now present First degree AV block no longer present Left bundle-branch block no longer present Electronically Signed On 09-20-16 10:18:46 MDT by Tim Macias [id number]
[2016-09-19 22:11] LABS: VENOUS PH 7.34 (7.32-7.42)
[2016-09-19 22:23] LABS: BASOPHILS # (AUTO) 0.05 10*3/UL; BASOPHILS % (AUTO) 0.6 % (0-1); EOSINOPHILS # (AUTO) 0.26 10*3/UL; EOSINOPHILS % (AUTO) 2.9 % (0-8); HEMATOCRIT 43.6 % (42.0-52.0); HEMOGLOBIN 14.1 g/dL (14.0-18.0); LYMPHOCYTES # (AUTO) 2.14 10*3/uL; MEAN CORPUSCULAR HEMOGLOBIN 30.1 PG (27-31); MEAN CORPUSCULAR HGB CONC 32.3 g/dL (33-37); MEAN CORPUSCULAR VOLUME 93.2 FL (80-90); MEAN PLATELET VOLUME 9.7 FL (7.4-12.2); MONOCYTES # (AUTO) 1.06 10*3/UL (0.3-0.8); MONOCYTES % (AUTO) 11.7 % (5-15); NEUTROPHILS # (AUTO) 5.52 10*3/UL; NEUTROPHILS % (AUTO) 60.9 % (50-80); RED BLOOD COUNT 4.68 10^6/uL (4.70-6.10)
[2016-09-19 22:24] LABS: PLATELET MORPHOLOGY COMMENT NORMAL MORPHOLOGY (NORM); RBC MORPHOLOGY COMMENT NORMAL MORPHOLOGY (NORM); WBC MORPHOLOGY COMMENT NORMAL MORPHOLOGY (NORM)
[2016-09-19 22:33] LABS: CALCIUM 9.2 mg/dL (8.7-10.7); MAGNESIUM 1.5 mg/dL (1.6-2.4); SERUM ALBUMIN 3.7 g/dL (3.5-4.8)
--- NOTE | 2016-09-19 23:23 | DI ---
HISTORY: Headache with syncope. COMPARISON: 09/19/2016 at 08:00 AM EST. TECHNIQUE: A noncontrast head CT was performed. FINDINGS: There is no midline shift or mass effect. The CSF spaces to include the ventricles, ciste rns and cerebral sulci are age appropriate. There are no pathologic fluid collections or evidence of acute intracranial hemorrhage. There are mild hypoattenuating regions within the white matter which are most compatible with age ind eterminate microvascular ischemic changes. There are atherosclerotic calcifications within the carot id siphons. There is no acute sinus disease. No significant mastoid air cell fluid. The imaged soft tissues of the neck and orbits are unremarkable. IMPRESSION: 1. Mild hypoattenuating regions within the white matter which are most compatible with age indetermin ate microvascular ischemic changes. 2. No acute intracranial hemorrhage, midline shift or mass effect.
--- NOTE | 2016-09-19 23:26 | DI ---
HISTORY: Rales. COMPARISON: 09/19/2016. TECHNIQUE: Frontal and lateral view of the chest was obtained. FINDINGS/IMPRESSION: There is worsening aeration within the lungs. There is elevation of the right hemidiaphragm likely secondary to a subpulmonic effusion. There is atelectasis versus consolidation within the right lower lobe. There is pulmonary vascular congestion and cardiomegaly. NOTIFICATION: The above findings were phoned to Kristen Lange in the ER Department on 09/20/2016 at 01:47 AM EST.
--- NOTE | 2016-09-19 23:55 | DI ---
HISTORY: Syncope with elevated d-dimer. COMPARISON: Chest x-ray from 09/19/2016 and a report from 03/17/2016. TECHNIQUE: Contiguous transaxial computed tomographic images were obtained of the chest using [facility] with IV contrast. Coronal and sagittal reformat images were performed. FINDINGS: LUNGS: There is a mild scar seen within the lung bases. There is no airspace consolidation. There is mild atelectasis and breathing motion. There is no pneumothorax or pleural effusion. There is el evation of the right hemidiaphragm. MEDIASTINUM: No acute pulmonary emboli or thoracic aortic dissection. The heart is mildly displaced the left secondary to elevation of the right hemidiaphragm. The heart and great vessels are normal for age. No mediastinal lymphadenopathy. The airway is patent. UPPER ABDOMEN: A limited evaluation of the upper abdomen was performed and is unremarkable. BONES: Normal for age. IMPRESSION: 1. No acute pulmonary emboli or thoracic aortic dissection. 2. No consolidation, pleural effusion or pneumothorax. 3. There is elevation of the right hemidiaphragm which gave the appearance of a subpulmonic effusion on the chest x-ray. No pleural effusion is seen. NOTIFICATION: The above findings were phoned to Kristen Lange in the ER Department on 09/20/2016 at 01:58 AM EST. NOTE: All CT scans at this facility use dose modulation, iterative reconstruction, and/or weight bas ed dosing when appropriate to reduce radiation dose to as low as reasonably achievable. Post contrast CTA of the chest with 80 cc of Optiray 350 IV contrast. Axial images were obtained as were reformatted and 3D reconstructions. Following the bolus administration of 100 cc of Optiray 350 , 1.25 mm axial images and coronal MIP reconstructions were obtained. Additional multiplanar 2-D and 3-D reconstructions were rendered.
[2016-09-19 23:56] LABS: BILIRUBIN,URINE NEGATIVE (NEG); CLARITY,URINE CLEAR (CLEAR); COLOR,URINE YELLOW; GLUCOSE, URINE (UA) NEGATIVE (NEG); NITRATE,URINE NEGATIVE (NEG); OCCULT BLOOD,URINE NEGATIVE (NEG); PROTEIN,URINE NEGATIVE (NEG); UROBILINOGEN,URINE 0.2 mg/dL (0.2)
[2016-09-19 23:58] LABS: URINE SAMPLE TYPE CLEAN CATCH URINE
[2016-09-20 00:06] LABS: SQUAMOUS EPITHELIAL CELL,UR MANY; WBC,URINE RARE
[2016-09-20 00:07] LABS: BACTERIA,URINE RARE; URINE CRYSTALS MANY
[2016-09-20] MEDS ORDERED: ACETAMINOPHEN 500 MG TABLET PO ONE ×2 (00:30→00:37)
--- NOTE | 2016-09-20 01:26 | PDOC ---
Syncope/Near-Syncope HPI - General Chief Complaint: General Medical Stated Complaint: DIZZINESS AND WEAKNESS Date Seen by Provider: 09/19/16 Time Seen by Provider: 21:25 Source: POSITIVE: Patient, Other (Son and [id number]) Exam Limitations: POSITIVE: No limitations Nurse's Notes Reviewed & Considered: Yes EMS Report Reviewed & Considered: Verbal - History of Present Illness Initial Comments: The patient is a 75-year-old male who is brought to the emergency room by ambulance. Patient lives alone, his having had this past winter. He states that he was sitting in his chair. He states that he could not get out of his chair because he felt "like passing out". He called family members who called the ambulance. He presented to the emergency room by ambulance. Patient was seen with this morning and was treated with hydration, meclizine and magnesium. Patient was also seen in the emergency room on September 03 when he was noted to have an intermittent left bundle branch block and a first- degree AV block. Concern at that time was for a possible dysrhythmia. 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 He also received a neurological evaluation in [place] which, according to family, was also negative. Family members state that the patient had a echo and MRI done at that time. Medical records from [facility] were requested, but have not yet been received. Patient has a history of COPD and type II diabetes mellitus. History of hypertension. Patient also complains of a headache. No known fevers or chills. No nausea, vomiting, diarrhea, melena, hematochezia, hematemesis, dysuria or hematuria. No rashes or skin changes. Body Location Affected: REPORTS: Head (Headache, circumferential), Other Timing: REPORTS: Gradual Duration: >1 week (Symptomatic intermittently for approximately 2 weeks) Severity: Moderate Quality: REPORTS: "Pain" (Headache) Episode Began at:: 20:30 Most Recent Episode:: 09/19/16 Context: REPORTS: Sitting Symptoms Prior to Episode: REPORTS: Headache, Lightheaded Character of Event(s): REPORTS: [place] Faint, Almost Passed Out Associated Symptoms: REPORTS: Headache Recently seen/treated/hospitalized: Yes Any Prior Injuries Related to Current Complaint?: No - Patient Home Medications Home Medications: Home Medications Aspirin [Aspirin EC] 81 mg PO DAILY tab 10/12/12 Multivits,Ca,Min/Iron/FA/Lycop [Centrum Ultra Men's Tablet] 1 tab PO DAILY 09/06 Cholecalciferol (Vitamin D3) [Vitamin D3] 1 tab PO QD #30 tab 11/07/14 Docusate Sodium [Stool Softener] 2 tab PO QHS #60 tab 04/14/15 Ibuprofen 4 tab PO BID #240 tab 04/14/15 Sitagliptin Phosphate [Januvia] 1 tab PO QD #90 tab 12/18/15 Furosemide 1 tab PO 3XW #12 tab 04/15/16 Carvedilol [Coreg] 1 tab PO BID #60 tab 04/16/16 Potassium Chloride 1 cap PO 3XW #12 cap 06/13/16 Glipizide/Metformin HCl [Glipizide-Metformin 5-500 Mg] 2 tab PO BID #360 tab Atorvastatin Calcium 1 tab PO QHS #30 tab 09/09/16 Lisinopril 1 tab PO QD #30 tab 09/09/16 Diazepam 5 mg PO BID 09/19/16 Meclizine HCl 25 mg PO .Q4-6HRS PRN 09/19/16 - Patient Allergies Allergies/Adverse Reactions: Allergies Allergy/AdvReac Type Severity Reaction Status Date / Time Tetanus Vaccines and Toxoid AdvReac Severe SWELLING/ Verified 09/19/16 22:11 [Tetanus Vaccines MUSCLE \\E\\E\\E\\T\\E\\E\\E\\ Toxoid] RIGIDITY Past Medical History - heen HEENT History: Cataracts, Hard of Hearing Additional HEENT History: left removed Cardiovascular History: Hypertension, CHF, Hyperlipidemia Additional Cardiovasular History: LA?, CHF? Respiratory History: COPD, Pneumonia Gastrointestinal History: Denies History Additional Gastrointestinal History: H/O ULCERS Genitourinary History: Denies History Endocrine History: Type 2 Diabetes (oral) Additional Endocrine History: FSBS 09/19/16 248 Musculoskeletal History: Arthritis, Gout Prosthesis or Implant: No Additional Musculoskeletal History: BRUISING AND SCABBING TO THE BACK OF THE HEAD FROM AND ASSOCIATED FALL. PATIENT FELL BACKWARDS AND STRUCK HIS HEAD ON HIS CONCRETE PATIO Neurological History: Denies History Blood Disorders: Denies History Psychiatric History: Denies History History of Sexually Transmitted Diseases: No Male Reproductive History: Denies History Cancer History: Denies History In Past Year Been Physically Harmed or Verbally Threatened: No History of MDRO: No History of Other Communicable Diseases: No Tobacco Use: Never Smoker Alcohol Use: Rarely Substance Use Type: None Previous Surgical History: Yes Type / Date of Surgery: APPY Anesthesia Reactions: No Malignant Hyperthermia: No Significant Family History: Heart disease, Cancer, Diabetes, Lung disease Past Medical History Reviewed: Reviewed - No Changes ROS - Limitations ROS Limitations: No Limitations Constitution: REPORTS: Denies Symptoms Cardiovascular: REPORTS: Denies Cardiac Symptoms Respiratory: REPORTS: Denies Resp Symptoms Neurological: REPORTS: Headache, Dizziness, Fainting Gastrointestinal: REPORTS: Denies GI Symptoms Endocrine: REPORTS: Denies Symptoms Musculoskeletal: REPORTS: Denies MS Symptoms Genitourinary: REPORTS: Denies Symptoms Eyes: REPORTS: Denies Symptoms ENT: REPORTS: Denies Symptoms Skin: REPORTS: Denies Skin Symptoms Lympathic: REPORTS: Denies Lympathic Symptoms Immunologic: POSITIVE: Denies Symptoms Psychiatric: POSITIVE: Denies Psych Symptoms Syncope / Near-Syncope Exam - General Appearance General Appearance: POSITIVE: Alert, Cooperative, No Acute Distress, No Evidence of Trauma, Other (Obese) - HEENT HEENT: POSITIVE: Head Inspection Nml, Eyes Inspection Nml, Ears Inspection Nml, Nose Inspection Nml, Oral/Dental Inspect. Nml, Pharynx Inspect. Nml, PERRL, EOMI - Pupil Size Pupil Size: 3 mm: Bilateral (PERRLA) - Neck / Back Neck/Back: POSITIVE: Supple, Non-Tender, No Carotid Bruit - Respiratory Respiratory: POSITIVE: Rhonchi (Scattered rhonchi both lower posterior lung grubbs) - Cardiovascular Cardiovascular: POSITIVE: Regular Rate and Rhythm, Heart Sounds Normal, Equal Pulses, Strong Pulses Peripheral Pulses: Radial (R): 2+, Radial (L): 2+ - Abdomen Abdomen: Soft: (All Quadrants), Normal Bowel Sounds: (All Quadrants), Denies Tenderness: (All Quadrants), No Splenomegaly: (All Quadrants), No Hepatomegaly: (All Quadrants), No Guarding: (All Quadrants), No Rebound: (All Quadrants), No Palpable Pulse: (All Quadrants), No Palpabale Mass: (All Quadrants), No Distention: (All Quadrants), No Rigidity: (All Quadrants) - Skin Skin: POSITIVE: Intact, Normal For Race, Warm, Dry, No Rash - Extremities Extremity: Non-Tender: (All Extremities), Normal ROM: (All Extremities), Normal Inspection: (All Extremities) - Neuro / Psych Higher Functions: POSITIVE: Oriented to Person, Oriented to Place, Oriented to Time, Normal Speech, Normal Cognition, Appropriate Mood, Appropriate Affect. NEGATIVE: Disoriented to Person, Disoriented to Place, Disoriented to Time, Speech Abnormalities, Cognition Abnormalities, Depressed Mood, Depressed Affect , Abnml Response to Command, No Response to Command, Eyes Open to Command, Slow Response to Command, Inapp Response to Command, Expressive Aphasia, Receptive Aphasia, Abnml Response to Pain, Withdraws to Pain, Flexor to Pain, Extensor to Pain, No Response to Pain, Dysarthria, Other Cranial Nerves: POSITIVE: Normal As Tested, No Evidence of Acute CVA Cerebellar: POSITIVE: Normal As Tested Sensorimotor: POSITIVE: No Motor Deficits, No Sensory Deficits, Reflexes Normal , Symmetrical Syncope/Near-Syncope Progress - Results Reviewed by me Xrays/CTs/US Reviewed by me: Yes Discussed with Radiologist: Yes Radiology Findings: Chest x-ray shows no definite infiltrates. CTA chest shows no pulmonary emboli. CT head without contrast normal for age. Lab Results Reviewed: Yes Lab Results:: Laboratory Results 09/19/16 09/19/16 09/19/16 Range/Units 21:20 21:58 22:10 WBC 9.06 (4.8-10.8) 10^3/uL RBC 4.68 L (4.70-6.10) 10^6/uL Hgb 14.1 (14.0-18.0) g/dL Hct 43.6 (42.0-52.0) % MCV 93.2 H (80-90) FL MCH 30.1 (27-31) PG MCHC 32.3 L (33-37) g/dL RDW Std Deviation 47.3 (39-50) fL RDW Coeff of Sandra 14.4 (11.5-14.5) % Plt Count 277 (140-350) 10*3/uL MPV 9.7 (7.4-12.2) FL Immature Gran % (Auto) 0.3 (0-5) % Neut % (Auto) 60.9 (50-80) % Lymph % (Auto) 23.6 (10-50) % Saunders % (Auto) 11.7 (5-15) % Eos % (Auto) 2.9 (0-8) % Baso % (Auto) 0.6 (0-1) % Immature Gran # (Auto) 0.03 10*3/UL Neut # (Auto) 5.52 10*3/UL Lymph # (Auto) 2.14 10*3/uL Saunders # (Auto) 1.06 H (0.3-0.8) 10*3/UL Eos # (Auto) 0.26 10*3/UL Baso # (Auto) 0.05 10*3/UL WBC Morphology Comment Normal morphology (NORM) Plt Morphology Comment Normal morphology (NORM) RBC Morph Comment Normal morphology (NORM) PT 11.3 (9.7-11.4) secs INR 1.10 (0.00-5.90) N/A D-Dimer 1.73 H (0.00-0.59) mg/L VBG pH 7.34 (7.32-7.42) VBG pCO2 50 (45-55) mmHg VBG HCO3 27 H (22-26) mmol/L VBG Base Excess 1 (-2-2) MMOL/L Sodium 137 (135-145) meq/L Potassium 4.7 (3.8-5.2) meq/L Chloride 102 (98-112) meq/L Carbon Dioxide 25 (23-33) meq/L Anion Gap 10 (5-20) BUN 27 H (7-22) mg/dL Creatinine 0.9 (0.70-1.50) mg/dL Estimated GFR (>60 ml/min/1.73m(2)) BUN/Creatinine Ratio 30.00 H (6-20) Glucose 183 H (78-110) mg/dL Calculated Osmolality 293.0 H (267-292) mOsm/kg Lactic Acid 1.9 (0.70-2.10) MMOL/L Calcium 9.2 (8.7-10.7) mg/dL Magnesium 1.5 L (1.6-2.4) mg/dL Total Bilirubin 0.5 (0.3-1.2) mg/dL AST 24 (21-57) IU/L ALT 33 (21-72) IU/L Alkaline Phosphatase 86 (38-126) IU/L Troponin I < 0.012 (< 0.040) ng/mL Total Protein 7.3 (6.1-8.0) g/dL Albumin 3.7 (3.5-4.8) g/dL Globulin 3.6 (2.50-4.10) g/dL Albumin/Globulin Ratio 1.00 L (1.3-2.0) mg/g Ur Collection Type Urine Color Urine Clarity (CLEAR) Urine pH (5.0-8.5) Ur Specific [place] (1.005-1.030) Urine Protein (NEG) mg/dl Urine Glucose (UA) (NEG) mg/dL Urine Ketones (NEG) Urine Occult Blood (NEG) Urine Nitrate (NEG) Urine Bilirubin (NEG) Urine Urobilinogen (0.2) mg/dL Ur Leukocyte Esterase (NEG) Urine RBC (NONE) /hpf Urine WBC (NONE) Ur Squamous Epith Cells (NONE) Ur Renal Epithelial Cell (NONE) Urine Crystals Urine Bacteria (NONE) Urine Casts Urine Mucus (NONE) Urine Trichomonas (NONE) Urine Yeast (NONE) 09/19/16 Range/Units 23:52 WBC (4.8-10.8) 10^3/uL RBC (4.70-6.10) 10^6/uL Hgb (14.0-18.0) g/dL Hct (42.0-52.0) % MCV (80-90) FL MCH (27-31) PG MCHC (33-37) g/dL RDW Std Deviation (39-50) fL RDW Coeff of Sandra (11.5-14.5) % Plt Count (140-350) 10*3/uL MPV (7.4-12.2) FL Immature Gran % (Auto) (0-5) % Neut % (Auto) (50-80) % Lymph % (Auto) (10-50) % Saunders % (Auto) (5-15) % Eos % (Auto) (0-8) % Baso % (Auto) (0-1) % Immature Gran # (Auto) 10*3/UL Neut # (Auto) 10*3/UL Lymph # (Auto) 10*3/uL Saunders # (Auto) (0.3-0.8) 10*3/UL Eos # (Auto) 10*3/UL Baso # (Auto) 10*3/UL WBC Morphology Comment (NORM) Plt Morphology Comment (NORM) RBC Morph Comment (NORM) PT (9.7-11.4) secs INR (0.00-5.90) N/A D-Dimer (0.00-0.59) mg/L VBG pH (7.32-7.42) VBG pCO2 (45-55) mmHg VBG HCO3 (22-26) mmol/L VBG Base Excess (-2-2) MMOL/L Sodium (135-145) meq/L Potassium (3.8-5.2) meq/L Chloride (98-112) meq/L Carbon Dioxide (23-33) meq/L Anion Gap (5-20) BUN (7-22) mg/dL Creatinine (0.70-1.50) mg/dL Estimated GFR (>60 ml/min/1.73m(2)) BUN/Creatinine Ratio (6-20) Glucose (78-110) mg/dL Calculated Osmolality (267-292) mOsm/kg Lactic Acid (0.70-2.10) MMOL/L Calcium (8.7-10.7) mg/dL Magnesium (1.6-2.4) mg/dL Total Bilirubin (0.3-1.2) mg/dL AST (21-57) IU/L ALT (21-72) IU/L Alkaline Phosphatase (38-126) IU/L Troponin I (< 0.040) ng/mL Total Protein (6.1-8.0) g/dL Albumin (3.5-4.8) g/dL Globulin (2.50-4.10) g/dL Albumin/Globulin Ratio (1.3-2.0) mg/g Ur Collection Type Clean catch urine Urine Color Yellow Urine Clarity Clear (CLEAR) Urine pH 5.0 (5.0-8.5) Ur Specific [place] 1.010 (1.005-1.030) Urine Protein Negative (NEG) mg/dl Urine Glucose (UA) Negative (NEG) mg/dL Urine Ketones Negative (NEG) Urine Occult Blood Negative (NEG) Urine Nitrate Negative (NEG) Urine Bilirubin Negative (NEG) Urine Urobilinogen 0.2 (0.2) mg/dL Ur Leukocyte Esterase Negative (NEG) Urine RBC None (NONE) /hpf Urine WBC Rare (NONE) Ur Squamous Epith Cells Many (NONE) Ur Renal Epithelial Cell None (NONE) Urine Crystals Many Urine Bacteria Rare (NONE) Urine Casts None Urine Mucus Many (NONE) Urine Trichomonas None (NONE) Urine Yeast None (NONE) EKG Interpreted/Reviewed By Me:: Yes EKG Interpretation:: POSITIVE: Normal Sinus Rhythm, Normal Rate, Normal Intervals, Normal [place], Normal QRS, Normal ST/T, Unchanged - Patient's Progress Pain Medication Addressed: POSITIVE: Not Applicable School/Work Release Addressed: POSITIVE: Not Applicable Re-examine Time: 00:15 Status: POSITIVE: Unchanged CVA/Syncope Quality Measure Initiative: POSITIVE: EKG - Consult Consult (If Yes, Name of Consulting MD & Time Called): Yes (Dr. Paz, hospitalist, [phone]) Consulting MD will see pt:: POSITIVE: [facility] [place] Admit Counseled: POSITIVE: Patient, Family, RE: Lab Results, RE: Radiology Results, RE : DX, RE: Need for F/U Patient Care Time - Estimated PCT Patient Care Time (In Minutes): 65 Vital Signs - Recent Vital Signs Vital Signs: Vital Signs (Last 8 hours) Temp Pulse Resp BP Pulse Ox 09/20/16 00:35 96.0 F L 09/19/16 21:30 98.2 F 94 22 123/72 94 - VS Reviewed Vital Signs Reviewed: Yes Discharge Clinical Impression: Dizziness, Vasovagal near-syncope Discharge Disposition: Admit to Inpatient Condition: Good Date Decision to Admit to Inpatient: 09/20/16 Time Decision to Admit to Inpatient: 00:05
[2016-09-20] MEDS ORDERED: Sodium Chloride 0.9% 1,000 ML PRIMARY IV SCH (02:57)
[2016-09-20] MEDS ORDERED: LIDOCAINE W/ SODIUM BICARB 0.5 ML SYR SUBD PRN (02:57)
[2016-09-20] MEDS ORDERED: NORMAL SALINE 10 ML SYRINGE FLUSH IVP PRN (02:57)
[2016-09-20] MEDS ORDERED: ONDANSETRON 4 MG/2 ML VIAL IVP PRN (02:57)
--- NOTE | 2016-09-20 08:27 | PDOC ---
History and Physical - History of Present Illness Date and Time of Service: 09/20/2016 8:30 AM Chief Complaint: Dizziness/lightheadedness for more than 2 weeks History of Present Illness: This is a 75 years old male with medical history significant for history of hypertension, diabetes, congestive heart failure unknown type who came into the hospital because of dizziness/lightheadedness symptoms started more than 2 weeks ago apparently fell and hit his head and came into the ER 2 days after that, they thought the he may have had heart block so he was transferred to [place] he stayed there for few days they did multiple investigation according to him and they didn't think that he needed a pacemaker placement, he was prescribed an unknown medication and has been taking it at home but he still feeling the same feeling which is lightheaded and dizzy. He described it more like a sensation that he is going to pass out and its worse when he lays on his back and also sometimes when he stands up. Not when he is walking though. He would have multiple episodes a day would last for a few seconds, what he would do he said he would lean against a wall and then it will pass. He came in yesterday to the ER again they did the CT of the head which was negative as put on meclizine and sent him home then he came back again last night and this time he was admitted. He said he is feeling weak now but not lightheaded as he was laying on the side. He is denying chest pain, no shortness of breath. No nausea vomiting or diarrhea. No dysuria or hematuria. Past Medical History Medical History: 1. Diabetes on oral hypoglycemic agent. 2. Hypertension. 3. Hypercholesterolemia. 4. Left bundle branch block. 5. History of congestive heart failure unknown type Surgical History: History of appendectomy Family History: Reviewed an Not Pertinent Past Social History: He never smoked, used drink but that was 15 years ago, no drugs. Lives by himself. He still drives. He do his own meals. Tobacco Use: Never Smoker Substance Use Type: None Alcohol Use: None Medication / Allergies Home Medications: Home Medications Medication Instructions Recorded Confirmed Type Aspirin [Aspirin EC] 81 mg PO DAILY tab 10/12/12 09/19/16 History Multivits,Ca,Min/Iron/FA/Lycop 1 tab PO DAILY 09/06/14 09/19/16 History [Centrum Ultra Men's Tablet] Cholecalciferol (Vitamin D3) 1 tab PO QD #30 tab 11/07/14 09/19/16 Clinic [Vitamin D3] Docusate Sodium [Stool Softener] 2 tab PO QHS #60 tab 04/14/15 09/19/16 Clinic Ibuprofen 4 tab PO BID #240 tab 04/14/15 09/19/16 Clinic Sitagliptin Phosphate [Januvia] 1 tab PO QD #90 tab 12/18/15 09/19/16 Clinic Furosemide 1 tab PO 3XW #12 tab 04/15/16 09/19/16 Clinic Carvedilol [Coreg] 1 tab PO BID #60 tab 04/16/16 09/19/16 Clinic Potassium Chloride 1 cap PO 3XW #12 cap 06/13/16 09/19/16 Clinic Glipizide/Metformin HCl 2 tab PO BID #360 tab 08/21/16 09/19/16 Clinic [Glipizide-Metformin 5-500 Mg] Atorvastatin Calcium 1 tab PO QHS #30 tab 09/09/16 09/19/16 Clinic Lisinopril 1 tab PO QD #30 tab 09/09/16 09/19/16 Clinic Diazepam 5 mg PO BID 09/19/16 09/19/16 History Meclizine HCl 25 mg PO .Q4-6HRS PRN 09/19/16 09/19/16 History Allergies/Adverse Reactions: Allergies Allergy/AdvReac Type Severity Reaction Status Date / Time Tetanus Vaccines and Toxoid AdvReac Severe SWELLING/ Verified 09/20/16 06:44 [Tetanus Vaccines MUSCLE \E\E\E\T\E\E\E\ Toxoid] RIGIDITY Review of Systems - Review of Systems All Systems: Reviewed & No Additional Complaints Except as Stated Exam - Vitals Vital Signs: Vital Signs Temperature 97.6 F Temperature Source Temporal Artery Scan Pulse Rate [Pulse Oximeter] 94 Pulse Rate 88 Respiratory Rate 20 Blood Pressure [Left Radial 119/67 Artery] Blood Pressure [Right Arm] 104/43 Blood Pressure 131/89 Pulse Ox 92 Oxygen Flow Rate 1 Oxygen Delivery Method Nasal Cannula Height 5 ft 6 in Weight 266 lb - General General Appearance: POSITIVE: No Acute Distress, Obese - Head Head Exam: POSITIVE: Normal Inspection, Atraumatic - Eye Eye Exam: POSITIVE: Normal Appearance - ENT ENT Exam: POSITIVE: Normal Exam - Neck Neck Exam: POSITIVE: Normal Inspection - Respiratory Respiratory Exam: POSITIVE: Clear to Auscultation - Bilaterally - Cardiovascular Cardiovascular Exam: POSITIVE: RRR - GI/Abdominal GI/Abdominal Exam: POSITIVE: Normal Bowel Sounds, Non Tender, Non Distended, Soft - Rectal Rectal Exam: POSITIVE: Deferred - External Exam: POSITIVE: Deferred - Extremities Extremities Exam: POSITIVE: Normal Inspection - Back Back Exam: POSITIVE: Normal Inspection - Neurological Neurological Exam: POSITIVE: Alert, Oriented x 3, CN II-XII Intact, Speech Intact / Clear Additional Neurological Exam Details: No nystagmus noted, no weakness noted on one side more than the other - Psychiatric Psychiatric Exam: POSITIVE: Flat Affect - Integumentary Integumentary Exam: POSITIVE: Normal Color Results - Labs CBC and BMP: 09/19/16 21:20 09/19/16 22:10 - EKG Data -: EKG Interpreted by Me (EKG showed sinus rhythm, moderate intraventricular conduction delay, nonspecific T-wave abnormality) - Imaging Status: Report Reviewed by Me (CT of the head showed no acute intracranial hemorrhage, midline shift or mass effect. There is mild hypoattenuating region within the white matter are most compatible with age indeterminant microvascular ischemic changes. CT of the chest showed no acute emboli or thoracic dissection, there is elevation of the right hemidiaphragm which gave the appearance of subpulmonic pleural effusion on chest x-ray.) Assessment and Plan - Patient Problems (1) Dizziness Current Visit: Yes Status: Acute Comment: Unclear reason, will do postural measurements, I think I'll cut back on the dosage of the blood pressure medication as he said he feels dizziness also when he stands up, will put him on Antivert. We will ask PT and OT to work with him. Will get records from [place] and see what kind of tests they did. We'll hold the Lasix for today. (2) Diabetes Current Visit: No Status: Chronic Comment: Continue with the Keisha will put him on glipizide and hold off on the metformin because he had contrast Qualifiers: Diabetes mellitus type: type 2 Diabetes mellitus complication status: without complication Diabetes mellitus intermediate insulin use: without lobsterman use Qualified Description: Type 2 diabetes mellitus without complication, without long-term current use of insulin Qualifier Code(s): (E11.9) Type 2 diabetes mellitus without complications (3) Hypertension Current Visit: No Status: Chronic Comment: I think will lower the dosage of his blood pressure medication including the Coreg and the lisinopril as he has some dizziness symptoms when he stands up and see whether that would make a difference to her symptoms. Qualifiers: Hypertension type: essential hypertension Qualified Description: Essential hypertension Qualifier Code(s): (I10) Essential (primary) hypertension (4) Hypercholesterolemia Current Visit: No Status: Acute Comment: Same med (5) Hypomagnesemia Current Visit: No Status: Acute Comment: We'll replace his magnesium
[2016-09-20] MEDS ORDERED: MECLIZINE 25 MG CHEWABLE TABLET PO SCH (09:00)
[2016-09-20] MEDS ORDERED: LISINOPRIL 10 MG TABLET PO SCH (09:00)
[2016-09-20] MEDS ORDERED: CARVEDILOL 6.25 MG TABLET PO SCH (09:00)
[2016-09-20] MEDS: sitaGLIPtin Tab 100 MG TAB PO SCH (09:08)
[2016-09-20] MEDS: ASPIRIN EC 81 MG TABLET PO SCH (09:08)
[2016-09-20] MEDS: CARVEDILOL 3.125 MG TABLET PO SCH ×2 (09:08→21:12)
[2016-09-20] MEDS: LISINOPRIL 10 MG TABLET PO SCH (09:08)
[2016-09-20] MEDS: MAGNESIUM OXIDE 400 MG TABLET PO SCH (09:08)
[2016-09-20] MEDS: CHOLECALCIFEROL 1000 IU TABLET PO SCH (09:09)
[2016-09-20] MEDS ORDERED: GlipiZIDE Tab 5 MG TABLET PO SCH (16:30)
[2016-09-20] MEDS: ACETAMINOPHEN 325 MG TABLET PO PRN ×2 (16:45→22:44)
[2016-09-20] MEDS ORDERED: ATORVASTATIN 40 MG TABLET PO SCH (21:00)
[2016-09-20] MEDS: MECLIZINE 25 MG CHEWABLE TABLET PO SCH (21:12)
--- NOTE | 2016-09-21 01:34 | EKG ---
[address] [id number] Measurements Intervals [place] Rate: 80 P: 16 ME: 200 QRS: -4 QRSD: 170 T: 65 QT: 433 QTc: 469 Interpretive Statements SINUS RHYTHM LEFT BUNDLE BRANCH BLOCK Compared to ECG 09/19/2016 21:38:00 Left bundle-branch block now present Electronically Signed On 09-22-16 17:52:44 MDT by Tim Macias [email or web address]
[2016-09-21 05:14] LABS: BUN/CREATININE RATIO 24.28 (6-20)
[2016-09-21] MEDS: MAGNESIUM OXIDE 400 MG TABLET PO SCH (07:28)
[2016-09-21] MEDS: ACETAMINOPHEN 325 MG TABLET PO PRN ×2 (07:29→13:33)
--- NOTE | 2016-09-21 09:27 | PDOC(PROG) ---
Date and Time of Service: 09/21/2016 9:26 AM Interval History: Subjective His lightheadedness/dizziness seemed to be improved compared to what it was. he said he is feeling weak, had some mild headache at times and Tylenol seem to take care of it. Objective : Data - Labs CBC and BMP: 09/19/16 21:20 09/21/16 04:53 Labs - Last 24 Hours: Laboratory Results 09/21/16 Range/Units 04:53 Sodium 137 (135-145) meq/L Potassium 4.3 (3.8-5.2) meq/L Chloride 101 (98-112) meq/L Carbon Dioxide 27 (23-33) meq/L Anion Gap 9 (5-20) BUN 17 (7-22) mg/dL Creatinine 0.7 (0.70-1.50) mg/dL Estimated GFR (>60 ml/min/1.73m(2)) BUN/Creatinine Ratio 24.28 H (6-20) Glucose 141 H (78-110) mg/dL Calculated Osmolality 287.0 (267-292) mOsm/kg Calcium 9.0 (8.7-10.7) mg/dL Objective : Exam - General General Appearance: No Acute Distress, Cooperative, Morbidly Obese - Head Head Exam: Normal Inspection, Atraumatic - Eye Eye Exam: Normal Appearance - ENT ENT Exam: Normal Exam - Neck Neck Exam: Normal Inspection - Respiratory Respiratory Exam: Clear to Auscultation - Bilaterally - Cardiovascular Cardiovascular Exam: RRR - GI/Abdominal GI/Abdominal Exam: Normal Bowel Sounds, Non Tender, Non Distended, Soft - Rectal Rectal Exam: Deferred - External Exam: Deferred - Extremities Extremities Exam: Normal Inspection - Back Back Exam: Normal Inspection - Neurological Neurological Exam: Alert, Oriented x 3, CN II-XII Intact, No Facial Droop Additional Neurological Exam Details: Seem to be generally weak but no focal weakness - Psychiatric Psychiatric Exam: Normal Affect - Integumentary Integumentary Exam: Normal Color Assessment and Plan - Patient Problems (1) Dizziness Current Visit: Yes Status: Acute Comment: I reviewed the records from [facility], he had an MRI brain and MRA brain, the MRI brain showed atrophy and mild small vessel ischemic disease. No evidence of acute infarction, hemorrhage or mass. MRA neck unremarkable without flow-limiting stenosis MRA [place] intact without aneurysmal dilatation or flow-limiting stenosis, echocardiogram showed anteroapical akinesia is with a moderately depressed LV function is ready of 40-45%. Dilated RV suggests likely pulmonary hypertension. I suspect he may have postconcussive syndrome that caused the lightheadedness. We are treating this symptomatically I lowered the dosage of his blood pressure medications and added Antivert. They tried the diazepam in [employer] and according to him that didn't help. Today he said the lightheadedness has improved so we'll continue with the same plan. I think will keep the blood pressure medication at this level and once things improve will consider increasing back to previous dosage. (2) Diabetes Current Visit: No Status: Chronic Comment: Continue Januvia, I think restart the glipizide at a lower dosage. Continue holding the metformin. Qualifiers: Diabetes mellitus type: type 2 Diabetes mellitus complication status: without complication Diabetes mellitus care home insulin use: without long term care phlebotomist use Qualified Description: Type 2 diabetes mellitus without complication, without long-term current use of insulin Qualifier Code(s): (E11.9) Type 2 diabetes mellitus without complications (3) Hypertension Current Visit: No Status: Chronic Comment: Continue Coreg and lisinopril at the current lower dose. Consider increasing it if blood pressure goes higher. Qualifiers: Hypertension type: essential hypertension Qualified Description: Essential hypertension Qualifier Code(s): (I10) Essential (primary) hypertension (4) Hypercholesterolemia Current Visit: No Status: Acute Comment: Same medications (5) Hypomagnesemia Current Visit: No Status: Acute Comment: He is on replacement (6) DVT prophylaxis Current Visit: No Status: Acute Comment: Will put him on Lovenox (7) Weakness Current Visit: Yes Status: Acute Comment: He is weak continue PT and OT
[2016-09-21] MEDS: sitaGLIPtin Tab 100 MG TAB PO SCH (09:58)
[2016-09-21] MEDS: LISINOPRIL 10 MG TABLET PO SCH (09:58)
[2016-09-21] MEDS: CARVEDILOL 3.125 MG TABLET PO SCH (09:59)
[2016-09-21] MEDS: CHOLECALCIFEROL 1000 IU TABLET PO SCH (09:59)
[2016-09-21] MEDS: MECLIZINE 25 MG CHEWABLE TABLET PO SCH (09:59)
[2016-09-21] MEDS: ASPIRIN EC 81 MG TABLET PO SCH (09:59)
--- NOTE | 2016-09-21 11:08 | PT.PROG ---
Progress Note Progress Note: S: pt reports he is doing fair. pt reports he is feeling ok. pt reports he is still somewhat dizzy. O: nsg okay'd prior to PT. pt instructed to perform ambulation with FWW with CGA x1 and 3 LO2 for 150 feet. pt demo slow gait speed. pt instructed in seated LAQs x 20, seated marches x 20 reps, seated ankle pumps x 20 reps, standing marches with FWW and CGA x1 x 20, standing heel raises /toe raises x 20 each FWW CGA x 1, standing hip extension/ abd x 10 with CGA and FWW. pt instructed to perform sit to stands from his bedside x 10 reps with cues for technique. pt left in care of nsg post therapy today. O2 sats 92 after therpy. A: pt tolerated therapy well today. pt participated in further ambulation and increased activity. continues to complain of dizziness but decreased today. continues to benefit from skilled therapy at this time. P: cont per POC
[2016-09-21 13:17] VITALS: RESP 20
[2016-09-21] MEDS ORDERED: GlipiZIDE Tab 5 MG TABLET PO SCH (16:30)
[2016-09-21 17:09] VITALS: TEMP 97
--- NOTE | 2016-09-21 17:55 | DCSUMMARY ---
Hospitalization Summary Admit Date: 09/20/16 Discharge Date: 09/21/16 Hospital Course: Discharge diagnosis 1. Lightheadedness likely postconcussive syndrome 2. Diabetes type II on oral hypoglycemic agent 3. History of hypertension 4. History of hypercholesteremia 5. Left bundle branch block 6. History of dilated cardiomyopathy last ejection fraction on echo done September 2016 40-45% 7. Obesity 8. Elevated right hemidiaphragm Hospital course This is a 75 years old male with medical history significant for history of hypertension, diabetes, dilated cardiomyopathy last ejection fraction was 40-45 % in September 2016, who came into the hospital because of dizziness/lightheadedness , symptoms started more than 2 weeks ago. Apparently he fell and hit his head on a concrete patio and came into the ER 2 days after that. They thought that the he may have had a heart block so he was transferred to [place] he stayed there for a few days, they did multiple investigation and did not think that he needed a pacemaker placement which was the reason for transfer. He was prescribed diazepam and discharged home. But he continued to have this feeling of lightheadedness and dizziness. The family brought him to the ER because of these symptoms he was giving a fluid and switched from diazepam to Antivert and discharged home however he came back again with the same symptoms. this time he was admitted. He described the symptoms as the feeling of passing out which last for a few seconds, what he would do he said he would lean against the wall and then it will pass. His symptoms seem to be worse when he is lays on his back and at times seemed to be also with standing up. In the ER he had 2 CAT scans which were negative and had a CT of the chest which was negative for PE. He was admitted to the hospital, exam when I saw him was not remarkable except for generalized weakness. I did obtain records from [place] he had MRI/MRA brain which showed the brain atrophy and mild ischemic small vessel disease, no evidence of acute infarction, hemorrhage or mass. MRA neck was negative MRA teller of [place] was also negative. Had an echocardiogram which showed ejection fraction to be 40-45%. I thought that maybe his symptoms are due to postconcussion syndrome. We continued with the meclizine and I elected to lower the dosage of his the Coreg and his lisinopril. we tried that to see that would help his symptoms.. The next day he did report that his symptoms are better but he is still weak so we continued with physical therapy. We don't think he is ready to go home yet he needs more time to regain his strength before he would be able to go home. So we decided to switch him to swing bed and continue physical therapy. If his blood pressure started to go up again we may elect to increase the dosage of his medication one at that time and see his response. Laboratory Results 09/19/16 09/19/16 09/19/16 Range/Units 21:20 21:58 22:10 WBC 9.06 (4.8-10.8) 10^3/uL RBC 4.68 L (4.70-6.10) 10^6/uL Hgb 14.1 (14.0-18.0) g/dL Hct 43.6 (42.0-52.0) % MCV 93.2 H (80-90) FL MCH 30.1 (27-31) PG MCHC 32.3 L (33-37) g/dL RDW Std Deviation 47.3 (39-50) fL RDW Coeff of Sandra 14.4 (11.5-14.5) % Plt Count 277 (140-350) 10*3/uL MPV 9.7 (7.4-12.2) FL Immature Gran % (Auto) 0.3 (0-5) % Neut % (Auto) 60.9 (50-80) % Lymph % (Auto) 23.6 (10-50) % Morgan % (Auto) 11.7 (5-15) % Eos % (Auto) 2.9 (0-8) % Baso % (Auto) 0.6 (0-1) % Immature Gran # (Auto) 0.03 10*3/UL Neut # (Auto) 5.52 10*3/UL Lymph # (Auto) 2.14 10*3/uL Morgan # (Auto) 1.06 H (0.3-0.8) 10*3/UL Eos # (Auto) 0.26 10*3/UL Baso # (Auto) 0.05 10*3/UL WBC Morphology Comment Normal morphology (NORM) Plt Morphology Comment Normal morphology (NORM) RBC Morph Comment Normal morphology (NORM) PT 11.3 (9.7-11.4) secs INR 1.10 (0.00-5.90) N/A D-Dimer 1.73 H (0.00-0.59) mg/L VBG pH 7.34 (7.32-7.42) VBG pCO2 50 (45-55) mmHg VBG HCO3 27 H (22-26) mmol/L VBG Base Excess 1 (-2-2) MMOL/L Sodium 137 (135-145) meq/L Potassium 4.7 (3.8-5.2) meq/L Chloride 102 (98-112) meq/L Carbon Dioxide 25 (23-33) meq/L Anion Gap 10 (5-20) BUN 27 H (7-22) mg/dL Creatinine 0.9 (0.70-1.50) mg/dL Estimated GFR (>60 ml/min/1.73m(2)) BUN/Creatinine Ratio 30.00 H (6-20) Glucose 183 H (78-110) mg/dL Calculated Osmolality 293.0 H (267-292) mOsm/kg Lactic Acid 1.9 (0.70-2.10) MMOL/L Calcium 9.2 (8.7-10.7) mg/dL Magnesium 1.5 L (1.6-2.4) mg/dL Total Bilirubin 0.5 (0.3-1.2) mg/dL AST 24 (21-57) IU/L ALT 33 (21-72) IU/L Alkaline Phosphatase 86 (38-126) IU/L Troponin I < 0.012 (< 0.040) ng/mL Total Protein 7.3 (6.1-8.0) g/dL Albumin 3.7 (3.5-4.8) g/dL Globulin 3.6 (2.50-4.10) g/dL Albumin/Globulin Ratio 1.00 L (1.3-2.0) mg/g Ur Collection Type Urine Color Urine Clarity (CLEAR) Urine pH (5.0-8.5) Ur Specific Carver (1.005-1.030) Urine Protein (NEG) mg/dl Urine Glucose (UA) (NEG) mg/dL Urine Ketones (NEG) Urine Occult Blood (NEG) Urine Nitrate (NEG) Urine Bilirubin (NEG) Urine Urobilinogen (0.2) mg/dL Ur Leukocyte Esterase (NEG) Urine RBC (NONE) /hpf Urine WBC (NONE) Ur Squamous Epith Cells (NONE) Ur Renal Epithelial Cell (NONE) Urine Crystals Urine Bacteria (NONE) Urine Casts Urine Mucus (NONE) Urine Trichomonas (NONE) Urine Yeast (NONE) 09/19/16 09/21/16 09/21/16 Range/Units 23:52 04:53 06:00 WBC (4.8-10.8) 10^3/uL RBC (4.70-6.10) 10^6/uL Hgb (14.0-18.0) g/dL Hct (42.0-52.0) % MCV (80-90) FL MCH (27-31) PG MCHC (33-37) g/dL RDW Std Deviation (39-50) fL RDW Coeff of Sandra (11.5-14.5) % Plt Count (140-350) 10*3/uL MPV (7.4-12.2) FL Immature Gran % (Auto) (0-5) % Neut % (Auto) (50-80) % Lymph % (Auto) (10-50) % Morgan % (Auto) (5-15) % Eos % (Auto) (0-8) % Baso % (Auto) (0-1) % Immature Gran # (Auto) 10*3/UL Neut # (Auto) 10*3/UL Lymph # (Auto) 10*3/uL Morgan # (Auto) (0.3-0.8) 10*3/UL Eos # (Auto) 10*3/UL Baso # (Auto) 10*3/UL WBC Morphology Comment (NORM) Plt Morphology Comment (NORM) RBC Morph Comment (NORM) PT (9.7-11.4) secs INR (0.00-5.90) N/A D-Dimer (0.00-0.59) mg/L VBG pH (7.32-7.42) VBG pCO2 (45-55) mmHg VBG HCO3 (22-26) mmol/L VBG Base Excess (-2-2) MMOL/L Sodium 137 (135-145) meq/L Potassium 4.3 (3.8-5.2) meq/L Chloride 101 (98-112) meq/L Carbon Dioxide 27 (23-33) meq/L Anion Gap 9 (5-20) BUN 17 (7-22) mg/dL Creatinine 0.7 (0.70-1.50) mg/dL Estimated GFR (>60 ml/min/1.73m(2)) BUN/Creatinine Ratio 24.28 H (6-20) Glucose 141 H (78-110) mg/dL Calculated Osmolality 287.0 (267-292) mOsm/kg Lactic Acid (0.70-2.10) MMOL/L Calcium 9.0 (8.7-10.7) mg/dL Magnesium 1.4 L (1.6-2.4) mg/dL Total Bilirubin (0.3-1.2) mg/dL AST (21-57) IU/L ALT (21-72) IU/L Alkaline Phosphatase (38-126) IU/L Troponin I (< 0.040) ng/mL Total Protein (6.1-8.0) g/dL Albumin (3.5-4.8) g/dL Globulin (2.50-4.10) g/dL Albumin/Globulin Ratio (1.3-2.0) mg/g Ur Collection Type Clean catch urine Urine Color Yellow Urine Clarity Clear (CLEAR) Urine pH 5.0 (5.0-8.5) Ur Specific Carver 1.010 (1.005-1.030) Urine Protein Negative (NEG) mg/dl Urine Glucose (UA) Negative (NEG) mg/dL Urine Ketones Negative (NEG) Urine Occult Blood Negative (NEG) Urine Nitrate Negative (NEG) Urine Bilirubin Negative (NEG) Urine Urobilinogen 0.2 (0.2) mg/dL Ur Leukocyte Esterase Negative (NEG) Urine RBC None (NONE) /hpf Urine WBC Rare (NONE) Ur Squamous Epith Cells Many (NONE) Ur Renal Epithelial Cell None (NONE) Urine Crystals Many Urine Bacteria Rare (NONE) Urine Casts None Urine Mucus Many (NONE) Urine Trichomonas None (NONE) Urine Yeast None (NONE) Discharge instruction Diet diabetic Activity as tolerated with physical therapy Medications Active Medications Acetaminophen (Tylenol) 650 mg PO Q6H PRN PRN Reason: Pain Last Admin: 09/21/16 13:33 Dose: 650 mg Aspirin (Aspirin Ec) 81 mg PO DAILY BECKA Last Admin: 09/21/16 09:59 Dose: 81 mg Atorvastatin Calcium (Lipitor) 40 mg PO BEDTIME BECKA Last Admin: 09/20/16 21:12 Dose: 40 mg Carvedilol (Coreg) 3.125 mg PO BID ON LICENSE OF [facility] Last Admin: 09/21/16 09:59 Dose: 3.125 mg Cholecalciferol (Vitamin D3) 1,000 iu PO DAILY ON LICENSE OF [facility] Last Admin: 09/21/16 09:59 Dose: 1,000 iu Enoxaparin Sodium (Lovenox Inj) 40 mg SUBCUT DAILY ON LICENSE OF [facility] Furosemide (Lasix) 40 mg PO 3XW ON LICENSE OF [facility] Glipizide (Glucotrol Tab) 2.5 mg PO AC BK DIN ON LICENSE OF [facility] Last Admin: 09/21/16 16:54 Dose: 2.5 mg Sodium Chloride (Normal Saline 0.9%) 25 mls @ 200 mls/hr IV .Post Infusion PRN PRN Reason: No Primary IV for Flush ONLY Lidocaine HCl (Lidocaine Buffered Inj) 0.5 ml SUBD ONCE PRN PRN Reason: IV Starts Lisinopril (Prinivil) 5 mg PO DAILY ON LICENSE OF [facility] Last Admin: 09/21/16 09:58 Dose: 5 mg Magnesium Oxide (Mag-Ox) 400 mg PO C BK ON LICENSE OF [facility] Last Admin: 09/21/16 07:28 Dose: 400 mg Meclizine HCl (Antivert) 25 mg PO BID ON LICENSE OF [facility] Last Admin: 09/21/16 09:59 Dose: 25 mg Non-Formulary Medication (Potassium Chloride [Potassium Chloride]) 10 meq PO 3XW ON LICENSE OF [facility] Ondansetron HCl (Zofran Inj) 4 mg IVP Q4H PRN PRN Reason: NAUSEA / VOMITING Sitagliptin Phosphate (Januvia Tab) 100 mg PO DAILY ON LICENSE OF [facility] Last Admin: 09/21/16 09:58 Dose: 100 mg Sodium Chloride (Saline Flush) 5 - 20 ml IVP BID PRN PRN Reason: Flush Follow-up patient's status will be changed to swing bed status. We'll continue physical therapy here. Exam - Vitals Vital Signs: Vital Signs Temperature 97 F Temperature Source Temporal Artery Scan Pulse Rate [Pulse Oximeter] 83 Pulse Rate 82 Respiratory Rate 20 Blood Pressure [Standing] 136/76 Blood Pressure [Sitting] 115/72 Blood Pressure [Lying] 115/55 Blood Pressure [Left Arm] 114/68 Blood Pressure [Left Radial 126/65 Artery] Blood Pressure [Right Arm] 104/43 Blood Pressure 131/89 Pulse Ox 93 Oxygen Flow Rate 3 Oxygen Delivery Method Nasal Cannula Height 5 ft 6 in Weight 259 lb 9.6 oz Patient Problems - Patient Problem List (1) Dizziness Current Visit: Yes Status: Acute (2) Diabetes Current Visit: No Status: Chronic Qualifiers: Diabetes mellitus type: type 2 Diabetes mellitus complication status: without complication Diabetes mellitus fci insulin use: without buttermilk drier 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 use Qualified Description: Type 2 diabetes mellitus without complication, without long-term current use of insulin Qualifier Code(s): (E11.9) Type 2 diabetes mellitus without complications (3) Hypertension Current Visit: No Status: Chronic Qualifiers: Hypertension type: essential hypertension Qualified Description: Essential hypertension Qualifier Code(s): (I10) Essential (primary) hypertension (4) Hypercholesterolemia Current Visit: No Status: Acute (5) Hypomagnesemia Current Visit: No Status: Acute (6) DVT prophylaxis Current Visit: No Status: Acute (7) Weakness Current Visit: Yes Status: Acute
[2016-09-22] MEDS ORDERED: ENOXAPARIN SODIUM 40 MG/0.4 ML SYRINGE SUBCUT SCH (09:00)
[2016-09-23] MEDS ORDERED: Potassium Chloride Tab 10 MEQ TAB PO SCH (07:00)
--- NOTE | 2016-09-23 11:07 | PTI REPORT ---
Thank you for the referral of Claude Kirk. He was seen on 09/20/16 for an inpatient evaluation secondary to weakness. SUBJECTIVE: The patient is a 75-year-old male who complains that he has been lightheaded and weak. The patient states that he had a fall two weeks ago outside; he is not sure if he tripped or if it was due to him being lightheaded, but he did hit his head. The patient states he did not go into the ER or anything right off the bat as he felt that he was fine. He did previously have a fall where he did trip over something outside; he is not sure if this was in July or August. He hit his head and he had six stitches at that time. The patient denies any other falls besides these two within the last three months. The patient states approximately one week ago he was in the [facility] for four days and they placed him on a motion sickness pill and he was then sent back home. He states they improved his symptoms slightly but not enough and he was in the ER at [facility] [place], [place] and has since been admitted. The patient denies any feeling of dizziness and states that he feels more lightheaded. The patient states that he lives here in [place] and he lives alone. He states that he has two steps into and out of his house; otherwise, everything is on one level. The patient states that he has a son and [id number] in [facility] but he primarily takes care of himself and states that he does fairly well with that. The patient states he did not use any assistive devices prior to admittance to the hospital. The patient states that he is on a c-pap and wears four liters of oxygen at night but he does not use any during the day. The patient is frustrated as he feels that he hasn't got an answer to the symptoms that he is having. PAST MEDICAL HISTORY: Past medical history can be found in the patient's medical record. OBJECTIVE FINDINGS: General observations: The patient is alert and oriented to setting upon PT arrival. The patient is sidelying to the left in bed and on one liter of oxygen with an IV in place. The patient states that he is not having any lightheadedness at the start of our initial examination. Bed mobility: The patient is able to move from a sidelying to seated position with stand by assist x1 for safety. Once sitting edge of bed the patient denies any dizziness. He states that he is a little lightheaded from changing position. The patient demonstrates good seated edge of bed balance and is able to maintain this position for 10 minutes. He does use hand hold assist on the bed. Strength: Bilateral lower extremity strength is 4/5. Visual tracking: Visual tracking appeared normal. The patient does have a slight corrective saccadic movement and had some difficulties following instructions with checking his VOR. Head shake was negative with no nystagmus produced. Transfers: The patient was able to go from a seated to standing position with hand hold assist x2 on walker with contact guard assist x1 for safety. The patient states he feels a little lightheaded when he is standing. Ambulation: The patient was able to ambulate 30 feet with front wheeled walker and assist x2 in order to provide contact guard assist x1 for safety and also to maneuver the oxygen and IV pole. The patient demonstrates a shuffled gait pattern and a forward flexed trunk. After 30 feet the patient stated his knees felt like they were going to give out so he did have a seat in the wheelchair and was brought down to therapy. ASSESSMENT: The patient has fair rehab potential due to his feelings of lightheadedness making him a higher fall risk and his recent falls where he hit his head both times. Problem List: Dizziness Generalized weakness High fall risk Poor endurance and activity tolerance Short-Term Goals: To be met by discharge from inpatient: Patient will transfer from bed to stand independently and safely. Patient will ambulate at least 150 feet with appropriate assistive device and do so safely. Patient will be able to ascend and descend a flight of stairs in order to return back home and do so safely with appropriate assistive device. Patient will be able to complete two standardized measures of the 5x sit to stand and timed up and go with appropriate assistive device within appropriate time frame. Long-Term Goals: To be met following discharge from inpatient: Patient may be seen by outpatient physical therapy to continue with general strengthening and balance if deemed necessary upon discharge from the hospital. TREATMENT PLAN: Patient will be seen B.I.D during the week and one time per day over the weekend as an inpatient for general strengthening, independence and safety with transfers and ambulation, and balance activities along with vestibular rehab treatments as necessary. INITIAL TREATMENT: Treatment today consisted of the initial evaluation. The patient did complete a Angela-Hallpike to test the right and left posterior canal for any signs or symptoms of BPPV. The right was negative. On the left the patient felt dizzy for a slight moment. No nystagmus was noted. We did take him through a left Laura's maneuver to clear canal. The patient was fatigued following repositioning technique. If the patient has continued signs and symptoms of dizziness it may be appropriate to also check the horizontal canals to rule those out. The patient was very fatigued after the posterior canal and we did bring him back up to his room to left him rest before this afternoon. We may also check the patient's symptoms in the dark in order to see if maybe he has corrected nystagmus in light just to see if some of his symptoms may be related to possible BPPV. It is questionable if that is the exact cause as he feels more lightheaded than any symptoms of a spinning dizzy. At times with position changes he doesn't have any dizziness and sometimes just sitting at the edge of bed he will feel lightheaded. HERLINDAD
--- NOTE | 2016-09-23 11:56 | OTI REPORT ---
Thank you for the referral of Claude Kirk. He was seen on 09/20/16 for an occupational therapy inpatient evaluation secondary to weakness and dizziness. SUBJECTIVE: The patient is a 75-year-old male. The patient reports feeling lightheaded and dizzy. The patient reports falling approximately two weeks ago and hitting his head, at which point he went to the hospital. The patient has been in the [facility] for a couple of days. The patient has a history of falls. The patient reports falling while outside doing yard work. The patient states he tripped and fell. Prior to the fall two weeks ago, the patient also fell in July or August. The patient lives alone at home in [place]. The patient reports two steps to the entrance of his home. The patient reports being able to cook, clean, and perform laundry independently prior to admission. The patient reports having grab bars on the two steps leading to his home as well as one in the shower and in the bathroom. He has a tub/shower combo that he has to step over. The patient reports using two liters of oxygen at night and none during the day while at home. The patient does not report any pain other than lightheadedness and dizziness. The patient also reports generalized weakness, specifically during walking activities. The patient's main goal is to increase strength related to weakness and to improve dizziness and lightheadedness. PAST MEDICAL HISTORY: Past medical history can be found in the patient's medical record. OBJECTIVE FINDINGS: Range of motion: The patient demonstrates active range of motion within functional limits for the shoulder in flexion and abduction for the wrists, hands, and elbows. Strength: The patient's upper extremity strength for shoulders, elbows, hands, and wrists is 4/5 upon manual muscle testing. Activities of daily living: The patient required min assist to don shorts and max assist to don and doff socks. The patient was able to dress upper extremities independently. Ambulation: The patient ambulated for approximately 20 feet before requiring a rest break with use of a walker. Transfers: The patient performed sit to stand transfers with contact guard assist for safety secondary to dizziness and lightheadedness. Endurance: The patient does demonstrate decreased activity tolerance. ASSESSMENT: Problem List: Decreased upper extremity strength Impaired activity tolerance specific to ADL performance Decreased activity tolerance Decreased activity tolerance during ambulation Occupational Therapy Goals: To be met by discharge from inpatient: Patient will be able to perform lower extremity dressing task independently with the use of adaptive equipment as needed. Patient will be able to don and doff socks independently with use of adaptive equipment as needed. Patient will increase upper extremity strength to 5/5. Patient will be able to tolerate 10 minutes of activity including ADLs and or ambulation before requiring a rest break. TREATMENT PLAN: Patient will be seen B.I.D during the week and one time per day over the weekend as an inpatient to address the above goals and objectives. INITIAL TREATMENT: Treatment today consisted of the initial evaluation followed by functional activities including functional ambulation followed by lower extremity dressing including donning and doffing socks and threading shorts. Dictated by: ANA Johnson/JOLIE Supervised by: HARVINDER Nuñez/Gia WESTON
== END 2016-09-21 17:54 | disposition swing bed (61) ==
LOC: ER 21:30 → MED/SURG 09-20 00:37
PROVIDERS: ADMIT Internal Medicine; ATTEND Internal Medicine
DX: R42 Dizziness and giddiness (principal); E83.42 Hypomagnesemia; E86.0 Dehydration; E11.9 Type 2 diabetes mellitus without complications; I10 Essential (primary) hypertension; E78.00 Pure hypercholesterolemia, unspecified; I44.7 Left bundle-branch block, unspecified; E66.9 Obesity, unspecified; R53.1 Weakness; R51 Headache
CPT/HCPCS: 36415; 70450; 71010; 71020; 71275; 80048; 80053; 81001; 82803; 82948; 83605; 83735; 83880; 84439; 84443; 84484; 85025; 85379; 85610; 86140; 87040; 93005; 93010; 94761; 96365; 96375; 97110; 97163; 97166; 97530; 99217; 99220; 99284; J2405; J3475; J7030

== ENCOUNTER 2016-09-21 07:55 | Inpatient (IN) | payer OTHER, MEDICARE ==
--- NOTE | 2016-09-21 17:57 | PDOC ---
History and Physical - History of Present Illness Date and Time of Service: 09/21/2016 6:42 PM Chief Complaint: Weakness and lightheadedness History of Present Illness: Hospital course This is a 75 years old male with medical history significant for history of hypertension, diabetes, dilated cardiomyopathy last ejection fraction was 40-45 % in September 2016, who came into the hospital because of dizziness/lightheadedness , symptoms started more than 2 weeks ago. Apparently he fell and hit his head on a concrete patio and came into the ER 2 days after that. They thought that the he may have had a heart block so he was transferred to [place] he stayed there for a few days, they did multiple investigation and did not think that he needed a pacemaker placement which was the reason for transfer. He was prescribed diazepam and discharged home. But he continued to have this feeling of lightheadedness and dizziness. The family brought him to the ER because of these symptoms he was giving a fluid and switched from diazepam to Antivert and discharged home however he came back again with the same symptoms. this time he was admitted. He described the symptoms as the feeling of passing out which last for a few seconds, what he would do he said he would lean against the wall and then it will pass. His symptoms seem to be worse when he is lays on his back and at times seemed to be also with standing up. In the ER he had 2 CAT scans which were negative and had a CT of the chest which was negative for PE. He was admitted to the hospital, exam when I saw him was not remarkable except for generalized weakness. I did obtain records from [place] he had MRI/MRA brain which showed the brain atrophy and mild ischemic small vessel disease, no evidence of acute infarction, hemorrhage or mass. MRA neck was negative MRA [place] of [place] was also negative. Had an echocardiogram which showed ejection fraction to be 40-45%. I thought that maybe his symptoms are due to postconcussion syndrome. We continued with the meclizine and I elected to lower the dosage of his the Coreg and his lisinopril. we tried that to see that would help his symptoms.. The next day he did report that his symptoms are better but he is still weak so we continued with physical therapy. We don't think he is ready to go home yet he needs more time to regain his strength before he would be able to go home. So we decided to switch him to swing bed and continue physical therapy. If his blood pressure started to go up again we may elect to increase the dosage of his medication one at that time and see his response. Past Medical History Medical History: 1. Diabetes on oral hypoglycemic agent. 2. Hypertension. 3. Hypercholesterolemia. 4. Left bundle branch block. 5. History of dilated cardiomyopathy last echo done September 2016 showed ejection fraction 40-45% Surgical History: History of appendectomy Family History: Reviewed an Not Pertinent Past Social History: He never smoked, used drink but that was 15 years ago, no drugs. Lives by himself. He still drives. He do his own meals. Tobacco Use: Never Smoker Substance Use Type: None Alcohol Use: None Medication / Allergies Home Medications: Home Medications Medication Instructions Recorded Confirmed Type Aspirin [Aspirin EC] 81 mg PO DAILY tab 10/12/12 09/19/16 History Multivits,Ca,Min/Iron/FA/Lycop 1 tab PO DAILY 09/06/14 09/19/16 History [Centrum Ultra Men's Tablet] Cholecalciferol (Vitamin D3) 1 tab PO QD #30 tab 11/07/14 09/19/16 Clinic [Vitamin D3] Docusate Sodium [Stool Softener] 2 tab PO QHS #60 tab 04/14/15 09/19/16 Clinic Ibuprofen 4 tab PO BID #240 tab 04/14/15 09/19/16 Clinic Sitagliptin Phosphate [Januvia] 1 tab PO QD #90 tab 12/18/15 09/19/16 Clinic Furosemide 1 tab PO 3XW #12 tab 04/15/16 09/19/16 Clinic Carvedilol [Coreg] 1 tab PO BID #60 tab 04/16/16 09/19/16 Clinic Potassium Chloride 1 cap PO 3XW #12 cap 06/13/16 09/19/16 Clinic Glipizide/Metformin HCl 2 tab PO BID #360 tab 08/21/16 09/19/16 Clinic [Glipizide-Metformin 5-500 Mg] Atorvastatin Calcium 1 tab PO QHS #30 tab 09/09/16 09/19/16 Clinic Lisinopril 1 tab PO QD #30 tab 09/09/16 09/19/16 Clinic Diazepam 5 mg PO BID 09/19/16 09/19/16 History Meclizine HCl 25 mg PO .Q4-6HRS PRN 09/19/16 09/19/16 History Allergies/Adverse Reactions: Allergies Allergy/AdvReac Type Severity Reaction Status Date / Time Tetanus Vaccines and Toxoid AdvReac Severe SWELLING/ Verified 09/21/16 06:33 [Tetanus Vaccines MUSCLE \E\E\E\T\E\E\E\ Toxoid] RIGIDITY Review of Systems - Review of Systems All Systems: Reviewed & No Additional Complaints Except as Stated Exam - Vitals Vital Signs: Vital Signs Height 5 ft 6 in - General General Appearance: POSITIVE: No Acute Distress, Cooperative, Obese - Head Head Exam: POSITIVE: Normal Inspection, Atraumatic - Eye Eye Exam: POSITIVE: Normal Appearance - ENT ENT Exam: POSITIVE: Normal Exam - Neck Neck Exam: POSITIVE: Normal Inspection - Respiratory Respiratory Exam: POSITIVE: Clear to Auscultation - Bilaterally - Cardiovascular Cardiovascular Exam: POSITIVE: RRR - GI/Abdominal GI/Abdominal Exam: POSITIVE: Normal Bowel Sounds, Non Tender, Non Distended, Soft, No Organomegaly - Rectal Rectal Exam: POSITIVE: Deferred - External Exam: POSITIVE: Deferred - Extremities Extremities Exam: POSITIVE: Normal Inspection - Back Back Exam: POSITIVE: Normal Inspection - Neurological Neurological Exam: POSITIVE: Alert, Oriented x 3, CN II-XII Intact, Speech Intact / Clear - Psychiatric Psychiatric Exam: POSITIVE: Normal Affect - Integumentary Integumentary Exam: POSITIVE: Normal Color Assessment and Plan - Patient Problems (1) Postconcussion syndrome Current Visit: Yes Status: Acute Comment: I think his symptoms are more due to postconcussion syndrome, we started him on Antivert continue, we also lowered the dosage of his blood pressure medication. He did say that his lightheadedness and dizziness seem to be improved but he still generally weak so he was admitted to swing bed status to continue physical therapy before he can go back home. (2) Diabetes Current Visit: No Status: Chronic Comment: Continue glipizide at a lower dose, continue Januvia. Continue holding the metformin as he had contrast. If his blood blood sugar started to go up we'll increase the glipizide to home dosage. We lowered that because he was not eating well initially Qualifiers: Diabetes mellitus type: type 2 Diabetes mellitus complication status: without complication Diabetes mellitus mcc insulin use: without mcc use Qualified Description: Type 2 diabetes mellitus without complication, without long-term current use of insulin Qualifier Code(s): (E11.9) Type 2 diabetes mellitus without complications (3) Hypercholesterolemia Current Visit: No Status: Acute Comment: Same med (4) DVT prophylaxis Current Visit: No Status: Acute Comment: He is on Lovenox (5) Weakness Current Visit: No Status: Acute Comment: Continue PT and OT. (6) History of CHF (congestive heart failure) Current Visit: No Status: Acute Comment: Continue Coreg and lisinopril at the lower dosage for now. He is only on Lasix 3 times a week will resume.
[2016-09-21] MEDS: ACETAMINOPHEN 325 MG TABLET PO PRN (20:22)
[2016-09-21] MEDS: CARVEDILOL 3.125 MG TABLET PO SCH (20:23)
[2016-09-21] MEDS: ATORVASTATIN 40 MG TABLET PO SCH (20:23)
[2016-09-21] MEDS: MECLIZINE 25 MG CHEWABLE TABLET PO SCH (20:23)
[2016-09-22] MEDS: GlipiZIDE Tab 5 MG TABLET PO SCH ×2 (07:28→17:01)
[2016-09-22] MEDS: MAGNESIUM OXIDE 400 MG TABLET PO SCH (07:28)
[2016-09-22] MEDS: ASPIRIN EC 81 MG TABLET PO SCH (08:23)
[2016-09-22] MEDS: sitaGLIPtin Tab 100 MG TAB PO SCH (08:23)
[2016-09-22] MEDS: CHOLECALCIFEROL 1000 IU TABLET PO SCH (08:23)
[2016-09-22] MEDS: MECLIZINE 25 MG CHEWABLE TABLET PO SCH ×2 (08:23→21:29)
[2016-09-22] MEDS: ENOXAPARIN SODIUM 40 MG/0.4 ML SYRINGE SUBCUT SCH (08:23)
[2016-09-22] MEDS: CARVEDILOL 3.125 MG TABLET PO SCH ×2 (08:23→21:29)
[2016-09-22] MEDS: LISINOPRIL 5 MG TABLET PO SCH (08:23)
[2016-09-22] MEDS: ACETAMINOPHEN 325 MG TABLET PO PRN ×2 (12:06→19:32)
--- NOTE | 2016-09-22 14:03 | PDOC(PROG) ---
Date and Time of Service: 09/22/2016 2 PM Interval History: Subjective Patient feels better, the dizziness/lightheadedness seems to be gone, he doesn' t have it when he lays on his back and he doesn't have it when he stands up. Still feeling weak though, his strength though improving with physical therapy. Objective : Exam - General General Appearance: No Acute Distress, Cooperative, Obese - Head Head Exam: Normal Inspection, Atraumatic - Eye Eye Exam: Normal Appearance - Neck Neck Exam: Normal Inspection - Respiratory Respiratory Exam: Clear to Auscultation - Bilaterally - Cardiovascular Cardiovascular Exam: RRR - GI/Abdominal GI/Abdominal Exam: Normal Bowel Sounds, Non Tender, Non Distended, Soft - Rectal Rectal Exam: Deferred - External Exam: Deferred - Extremities Extremities Exam: Normal Inspection - Back Back Exam: Normal Inspection - Neurological Neurological Exam: Alert, Oriented x 3, CN II-XII Intact, Moves All Extremities Equally - Psychiatric Psychiatric Exam: Normal Affect - Integumentary Integumentary Exam: Normal Color Assessment and Plan - Patient Problems (1) Postconcussion syndrome Current Visit: Yes Status: Acute Comment: Seem to be improving I think we'll continue the current blood pressure medication dosage and the Antivert. I told him probably will give him another day or 2 before we think about increasing the blood pressure medication to his home dosage and see whether he can tolerate that. (2) Diabetes Current Visit: No Status: Chronic Comment: Same meds Qualifiers: Diabetes mellitus type: type 2 Diabetes mellitus complication status: without complication Diabetes mellitus alf insulin use: without alf use Qualified Description: Type 2 diabetes mellitus without complication, without long-term current use of insulin Qualifier Code(s): (E11.9) Type 2 diabetes mellitus without complications (3) Hypercholesterolemia Current Visit: No Status: Acute Comment: Same med (4) DVT prophylaxis Current Visit: No Status: Acute Comment: he is on lovenox (5) Weakness Current Visit: No Status: Acute Comment: Continue PT,OT (6) History of CHF (congestive heart failure) Current Visit: No Status: Acute Comment: We will restart his Lasix tomorrow, continue current dosage of Coreg and lisinopril
[2016-09-22] MEDS: POLYETHYLENE GLYCOL 3350 17 GM POWDER PO PRN (17:07)
[2016-09-22] MEDS: ATORVASTATIN 40 MG TABLET PO SCH (21:29)
[2016-09-23] MEDS: ACETAMINOPHEN 325 MG TABLET PO PRN ×2 (03:36→20:16)
[2016-09-23] MEDS ORDERED: FUROSEMIDE 40 MG TABLET PO SCH (07:00)
[2016-09-23] MEDS: Potassium Chloride Tab 10 MEQ TAB PO SCH (07:09)
[2016-09-23] MEDS: MAGNESIUM OXIDE 400 MG TABLET PO SCH (07:09)
[2016-09-23] MEDS: GlipiZIDE Tab 5 MG TABLET PO SCH (07:09)
[2016-09-23] MEDS: ASPIRIN EC 81 MG TABLET PO SCH (08:16)
[2016-09-23] MEDS: MECLIZINE 25 MG CHEWABLE TABLET PO SCH ×2 (08:16→20:16)
[2016-09-23] MEDS: LISINOPRIL 5 MG TABLET PO SCH (08:16)
[2016-09-23] MEDS: CHOLECALCIFEROL 1000 IU TABLET PO SCH (08:16)
[2016-09-23] MEDS: sitaGLIPtin Tab 100 MG TAB PO SCH (08:16)
[2016-09-23] MEDS: ENOXAPARIN SODIUM 40 MG/0.4 ML SYRINGE SUBCUT SCH (08:17)
[2016-09-23] MEDS: CARVEDILOL 3.125 MG TABLET PO SCH (08:17)
--- NOTE | 2016-09-23 11:47 | PT.PROG ---
Progress Note Progress Note: S. Patient stated that his knees bother him more than anything. He reports that he isn't as dizzy this morning compared to previous treatments. O. Patient ambulated 175 feet to the therapy gym where he used the nu-step x 10 minutes, then performed exercises in the form of; heel toe raises, marches, long arc quads, resisted knee flexion all x 10 bilaterally, sit to stands x 10. Patient was left with OT for further therapy. A. Patient tolerated therapy well this morning, he struggles with pain in his knees and with balance activities. Patient would continue to benefit from skilled therapy at this time to increase strength, mobility and endurance. P. Continue POC.
--- NOTE | 2016-09-23 12:57 | PTI REPORT ---
Thank you for the referral of Claude Kirk. He was seen on 09/22/16 for a swingbed evaluation secondary to dizziness and weakness SUBJECTIVE: The patient is a 75-year-old male who complains that he has been lightheaded and weak. The patient states that he had a fall two weeks ago outside; he is not sure if he tripped or if it was due to him being lightheaded, but he did hit his head. The patient states he did not go into the ER or anything right off the bat as he felt that he was fine. He did previously have a fall where he did trip over something outside; he is not sure if this was in July or August. He hit his head and he had six stitches at that time. The patient denies any other falls besides these two within the last three months. The patient states approximately one week ago he was in the [facility] for four days and they placed him on a motion sickness pill and he was then sent back home. He states they improved his symptoms slightly but not enough and [place] [facility] [place] since been admitted. The patient denies any feeling of dizziness and states that he feels more lightheaded. The patient states that he lives here in [place] and he lives alone. He states that he has two steps into and out of his house; otherwise, everything is on one level. The patient states that he has a son and [id number] in [facility] but he primarily takes care of himself and states that he does fairly well with that. The patient states he did not use any assistive devices prior to admittance to the hospital. The patient states that he is on a c-pap and wears four liters of oxygen at night but he does not use any during the day. The patient is frustrated as he feels that he hasn't got an answer to the symptoms that he is having. PAST MEDICAL HISTORY: Past medical history can be found in the patient's medical record. OBJECTIVE FINDINGS: General observations: The patient is alert and oriented to setting upon PT arrival. The patient is sidelying to the left in bed and on five liters of oxygen with an IV in place. The patient states that he is not having any lightheadedness at the start of our initial examination. Bed mobility: The patient is able to move from a sidelying to seated position with stand by assist x1 for safety. Once sitting edge of bed the patient denies any dizziness. He states that he is a little lightheaded from changing position. The patient demonstrates good seated edge of bed balance and is able to maintain this position for 10 minutes. He does use hand hold assist on the bed. Strength: Bilateral lower extremity strength is 4/5. Visual tracking: Visual tracking appeared normal. The patient does have a slight corrective saccadic movement and had some difficulties following instructions with checking his VOR. Head shake was negative with no nystagmus produced. Transfers: The patient was able to go from a seated to standing position with hand hold assist x2 on walker with contact guard assist x1 for safety. The patient states he feels a little lightheaded when he is standing. Ambulation: The patient was able to ambulate 30 feet with front wheeled walker and assist x2 in order to provide contact guard assist x1 for safety and also to maneuver the oxygen and IV pole. The patient demonstrates a shuffled gait pattern and a forward flexed trunk. After 30 feet the patient stated his knees felt like they were going to give out so he did have a seat in the wheelchair and was brought down to therapy. ASSESSMENT: The patient is a 75-year-old male who presents with generalized weakness and signs and symptoms of dizziness. The patient would benefit from skilled therapy to improve strength, endurance, and functional mobility. The patient's prognosis for therapy is fair. Problem List: Dizziness Generalized weakness High fall risk Poor endurance and activity tolerance Short-Term Goals: To be met by discharge from [facility] [place]: Patient will transfer from bed to stand independently and safely. Patient will ambulate at least 150 feet with appropriate assistive device and do so safely. Patient will be able to ascend and descend a flight of stairs in order to return back home and do so safely with appropriate assistive device. Patient will be able to complete two standardized measures of the 5x sit to stand and timed up and go with appropriate assistive device within appropriate time frame. Long-Term Goals: To be met following discharge from [facility]: Patient may be seen by outpatient physical therapy to continue with general strengthening and balance if deemed necessary upon discharge from the hospital. TREATMENT PLAN: Patient will be seen B.I.D during the week and one time per day over the weekend as a swingbed patient for general strengthening, independence and safety with transfers and ambulation, and balance activities along with vestibular rehab treatments as necessary. INITIAL TREATMENT: Treatment today consisted of the swingbed evaluation. The patient was instructed to ambulate down to the therapy gym with contact guard assist and front wheeled walker on six liters of oxygen with contact guard assist. The patient's oxygen saturation was monitored throughout entire treatment session. The patient performed the NuStep x10 minutes, 10 sit to stands, and 10 box step ups on the #2 box with front wheeled walker. The patient required contact guard assist x1 for all activities. The patient also performed seated long arc quads, seated marches, upper extremity around the clocks, biceps curls, overhead press with three pound weights, triceps extensions, internal/external rotation, and rows with red theraband. The patient was instructed to ambulate back to his room with contact guard assist and front wheeled walker. The patient was returned to his bed with bed alarm activated, oxygen reconnected to the wall, and call light within reach. The patient tolerated treatment very well. MTDD
--- NOTE | 2016-09-23 15:59 | PT.PROG ---
Progress Note Progress Note: S. Patient stated that he is feeling better this afternoon compared to previous treatments. O. Patient ambulated 175 feet to the therapy gym where he used the nu-step x 12 minutes, then performed exercises in the form of; sit to stands x 5, marches, long arc quads x 10 and standing balance x 3 minutes. A. Patient tolerated activities fair, he continues to struggle with his balance and weakness. Patient would continue to benefit from skilled therapy at this time. P. Continue POC.
[2016-09-23] MEDS: ATORVASTATIN 40 MG TABLET PO SCH (20:16)
[2016-09-24 05:20] LABS: BASOPHILS # (AUTO) 0.06 10*3/UL; BASOPHILS % (AUTO) 0.6 % (0-1); EOSINOPHILS % (AUTO) 4.3 % (0-8); HEMATOCRIT 43.3 % (42.0-52.0); HEMOGLOBIN 14.1 g/dL (14.0-18.0); LYMPHOCYTES # (AUTO) 1.92 10*3/uL; MEAN CORPUSCULAR HEMOGLOBIN 29.7 PG (27-31); MEAN CORPUSCULAR HGB CONC 32.6 g/dL (33-37); MEAN CORPUSCULAR VOLUME 91.2 FL (80-90); MEAN PLATELET VOLUME 9.1 FL (7.4-12.2); MONOCYTES # (AUTO) 1.03 10*3/UL (0.3-0.8); NEUTROPHILS % (AUTO) 63.2 % (50-80); RED BLOOD COUNT 4.75 10^6/uL (4.70-6.10)
[2016-09-24 05:26] LABS: PLATELET MORPHOLOGY COMMENT NORMAL MORPHOLOGY (NORM); RBC MORPHOLOGY COMMENT NORMAL MORPHOLOGY (NORM); WBC MORPHOLOGY COMMENT NORMAL MORPHOLOGY (NORM)
[2016-09-24 05:54] LABS: BUN/CREATININE RATIO 22.5 (6-20); CALCIUM 9.2 mg/dL (8.7-10.7); MAGNESIUM 1.5 mg/dL (1.6-2.4); SERUM ALBUMIN 3.4 g/dL (3.5-4.8)
[2016-09-24] MEDS: MAGNESIUM OXIDE 400 MG TABLET PO SCH (06:58)
[2016-09-24] MEDS: ENOXAPARIN SODIUM 40 MG/0.4 ML SYRINGE SUBCUT SCH (08:24)
[2016-09-24] MEDS: MECLIZINE 25 MG CHEWABLE TABLET PO SCH (08:25)
[2016-09-24] MEDS: LISINOPRIL 5 MG TABLET PO SCH (08:25)
[2016-09-24] MEDS: ASPIRIN EC 81 MG TABLET PO SCH (08:25)
[2016-09-24] MEDS: CHOLECALCIFEROL 1000 IU TABLET PO SCH (08:25)
[2016-09-24] MEDS: sitaGLIPtin Tab 100 MG TAB PO SCH (09:30)
[2016-09-24] MEDS: ACETAMINOPHEN 325 MG TABLET PO PRN ×2 (09:32→17:15)
--- NOTE | 2016-09-24 10:53 | OT.PROG ---
Progress Note Progress Note: S: pt stated he was doing "ok". He reports that he thinks his bed is to high. O: pt was seen in his room in the a.m. and was sitting on EOB. He completed donning of socks with assistance from sock aid Ind. He also donned LE/UE clothing INd and completed toilet transfer Ind. He then transferred downstairs to therapy with CGA and FWW. He completed 6 min on Ue bike to increase his activity tolerance. He transferred to mat table and took a drink of water and PT took over tx. A: pt completed all ADL activity well and transfers with walker as he feels safer with this. P: continue per plan of care.
--- NOTE | 2016-09-24 11:33 | PDOC(PROG) ---
Interval History: Patient is doing great feels more energetic today also is vertical is resolved, denies chest pain nausea and vomiting Objective : Data - Labs CBC and BMP: 09/24/16 05:01 09/24/16 05:01 Labs - Last 24 Hours: Laboratory Results 09/24/16 09/24/16 Range/Units 05:01 05:26 WBC 9.35 (4.8-10.8) 10^3/uL RBC 4.75 (4.70-6.10) 10^6/uL Hgb 14.1 (14.0-18.0) g/dL Hct 43.3 (42.0-52.0) % MCV 91.2 H (80-90) FL MCH 29.7 (27-31) PG MCHC 32.6 L (33-37) g/dL RDW Std Deviation 45.0 (39-50) fL RDW Coeff of Sandra 13.9 (11.5-14.5) % Plt Count 238 (140-350) 10*3/uL MPV 9.1 (7.4-12.2) FL Immature Gran % (Auto) 0.4 (0-5) % Neut % (Auto) 63.2 (50-80) % Lymph % (Auto) 20.5 (10-50) % Burt % (Auto) 11.0 (5-15) % Eos % (Auto) 4.3 (0-8) % Baso % (Auto) 0.6 (0-1) % Immature Gran # (Auto) 0.04 10*3/UL Neut # (Auto) 5.90 10*3/UL Lymph # (Auto) 1.92 10*3/uL Burt # (Auto) 1.03 H (0.3-0.8) 10*3/UL Eos # (Auto) 0.40 10*3/UL Baso # (Auto) 0.06 10*3/UL WBC Morphology Comment Normal morphology (NORM) Plt Morphology Comment Normal morphology (NORM) RBC Morph Comment Normal morphology (NORM) Sodium 139 (135-145) meq/L Potassium 4.0 (3.8-5.2) meq/L Chloride 102 (98-112) meq/L Carbon Dioxide 28 (23-33) meq/L Anion Gap 9 (5-20) BUN 18 (7-22) mg/dL Creatinine 0.8 (0.70-1.50) mg/dL Estimated GFR (>60 ml/min/1.73m(2)) BUN/Creatinine Ratio 22.50 H (6-20) Glucose 183 H (78-110) mg/dL Calculated Osmolality 294.0 H (267-292) mOsm/kg Calcium 9.2 (8.7-10.7) mg/dL Magnesium 1.5 L (1.6-2.4) mg/dL Total Bilirubin 0.7 (0.3-1.2) mg/dL AST 31 (21-57) IU/L ALT 38 (21-72) IU/L Alkaline Phosphatase 84 (38-126) IU/L NT-Pro-B Natriuret Pep 1010 H (0-450) PG/ML Total Protein 6.7 (6.1-8.0) g/dL Albumin 3.4 L (3.5-4.8) g/dL Globulin 3.3 (2.50-4.10) g/dL Albumin/Globulin Ratio 1.00 L (1.3-2.0) mg/g Objective : Exam - General General Appearance: Cooperative - Head Head Exam: Normal Inspection, Normocephalic, Atraumatic - Respiratory Respiratory Exam: Clear to Auscultation - Bilaterally, Breathing Non Labored - Cardiovascular Cardiovascular Exam: RRR, No Murmur, No Clicks, No Gallops - Extremities Extremities Exam: No Clubbing Present, No Edema Present - Neurological Neurological Exam: Alert, Oriented x 3, CN II-XII Intact, No Facial Droop, Speech Intact / Clear, Moves All Extremities Equally - Psychiatric Psychiatric Exam: Normal Affect, Normal Mood Assessment and Plan - Patient Problems (1) Postconcussion syndrome Current Visit: Yes Status: Resolved (2) Dizziness Current Visit: No Status: Acute Comment: I believe the patient was on too many medications especially blood pressure is blood pressure was around 100/60 did stop his beta karen and also his sulfonylurea which could be given and hypoglycemia after these 2 drugs were stopped as the vertigo and dizziness improved discuss case with the occupational therapy patient continues to improve then will need more strengthening (3) Weakness Current Visit: No Status: Acute Comment: Continue PTOT (4) Diabetes Current Visit: No Status: Chronic Comment: Continue same meds Qualifiers: Diabetes mellitus type: type 2 Diabetes mellitus complication status: without complication Diabetes mellitus supervisor intermediates insulin use: without half-way use Qualified Description: Type 2 diabetes mellitus without complication, without long-term current use of insulin Qualifier Code(s): (E11.9) Type 2 diabetes mellitus without complications (5) Hypertension Current Visit: No Status: Chronic Comment: Improved now off the beta karen Qualifiers: Hypertension type: essential hypertension Qualified Description: Essential hypertension Qualifier Code(s): (I10) Essential (primary) hypertension - Assessment / Plan Additional Assessment/Plan Details: Overall patient is improving labs were reviewed
--- NOTE | 2016-09-24 11:39 | PT.PROG ---
Progress Note Progress Note: s. Patient stated that he is feeling better this morning, and is not feeling dizzy today. O. Patient ambulated 175 feet to the therapy gym where he performed exercises in the form of; heel toe raises, marches, long arc quads, sit to stands, box step ups #2 and #3 box, all x 10 bilaterally. Patient used the nu-step x 10 minutes, then ambulated 175 feet back to his room where he was left in his chair with alarm and call light. A. Patient continues to struggle with weakness he continues to have issues with balance when he becomes fatigue. Patient would continue to benefit from skilled therapy at this time to gain strength, mobility and endurance. P. Continue POC.
--- NOTE | 2016-09-24 12:00 | OTI REPORT ---
Thank you for the referral of DIVYASAVANNA Ren. He was seen on 09/23/16 for an occupational therapy inpatient evaluation secondary to weakness. SUBJECTIVE: The patient is a 75 year old male. The patient lives alone in [place], [place]. He states he is feeling better today. Patient reports no dizziness or light headedness. Patient reported that he wants to take a shower today. Patient was currently driving at previous level functioning. There are no steps to the entrance of the home, however there are 2 steps in the home to access the kitchen and the living room with 2 hand rails on each side. Patient reports carpet throughout the home. Bed/Bathroom setup includes a standard toilet and a tub/shower combo. Patient also reports having access to a shower chair, however he does not currently use it. There are no grab bars near the toilet, or within the shower. Prior to admission the patient did not use DME for functional mobility within the home or within the community. At the time of evaluation patient utilized a standard walker. Patient reports being able to care for self including upper and lower extremity dressing, toileting, showering, and grooming tasks. At prior level of functioning the patient completed his own laundry, cooking including small meal preparation, and grocery shopping. Patient utilized assistance for cleaning with his daughter in law coming to clean for him. He also reported if necessary he could get help from his daughter in law for grocery shopping. As indicated patient does have some assistance available, including family. Patient's goals at this time include: returning home to live independently and alone at prior level of functioning. PAST MEDICAL HISTORY: Past medical history can be found in the patient's medical record. OBJECTIVE FINDINGS: Patient was oriented x4. At the time of the evaluation patient completed all eating tasks independently. The patient performed grooming task with supervision including setup assistance while standing at sink, and leaning on the counter. Patient performed bathing with minimal assistance specifically for washing and drying lower extremities with the use of grab bars and seated with a handheld shower head. Patient performed dressing of upper body with supervision including set up assistance. Patient performed lower extremity dressing with moderate assistance to thread pants and maximal assist to don and doff socks. Patient performed toileting tasks including toilet hygiene independently. Patient performed toilet transfer with modified independence with the use of a grab bar, and a standard walker. Comprehension, expression, social interaction, and memory are all independent. ASSESSMENT: Patient's rehab potential is good. Problem List: Grooming, bathing, upper extremity and lower extremity dressing. Functional mobility including transfers. Short-Term Goals: To be met by discharge from inpatient: Patient will perform all grooming tasks with independence including setup while standing at the sink. Patient will perform seated bathing with modified independence secondary to the use of shower chair and/or grab bars safely. This will include washing and drying lower extremities. Patient will perform upper body dressing independently. Patient will perform lower body dressing with modified independence with the use of adaptive equipment as needed safely. Patient will increase upper extremity strength to a 4 out of 5 bilaterally. Long-Term Goals: To be met following discharge from inpatient: Patient will return home to live independently at prior level of functioning with assistance as necessary as determined by discharge date. TREATMENT PLAN: Patient will be seen B.I.D during the week and one time per day over the weekend as an inpatient to address the above goals and objectives. INITIAL TREATMENT: Treatment consisted of initial evaluation followed by functional activities including upper extremity and lower extremity dressing. Bathing: including washing and drying while seated, and grooming tasks in standing. The patient performed functional mobility including sit to stand transfers and functional ambulation with the use of a standard walker for approximately 20 feet. Dictated By: ANA Johnson/JOLIE Supervised By: HARVINDER Nuñez/Gia WESTON
[2016-09-24] MEDS: FUROSEMIDE 40 MG TABLET PO SCH (12:16)
--- NOTE | 2016-09-24 15:09 | PT.PROG ---
Progress Note Progress Note: S. Patient states that he is still having pain in his knees, and reports he is having a pain in his right side. O. Patient ambulated 175 feet to the therapy gym where he performed exercises in the form of; heel toe raises, marches, long arc quads, ball squeezes, resisted knee flexion, and sit to stands all x 10 bilaterally. Patient used the nu-step x 6 minutes then ambulated 175 feet back to his room where he was left in the restroom and nursing was notified. A. Patient tolerated exercises fair, He ambulated down to therapy with out the walker however after exercises he was unable to ambulate back to his room without the walker. he continues to struggle with pain in his knees and would continue to benefit from skilled therapy to increase strength, mobility and endurance. P. continue POC.
[2016-09-24] MEDS: ATORVASTATIN 40 MG TABLET PO SCH (20:38)
[2016-09-25] MEDS: ACETAMINOPHEN 325 MG TABLET PO PRN (05:27)
[2016-09-25] MEDS ORDERED: MAGNESIUM OXIDE 400 MG TABLET PO SCH (07:00)
[2016-09-25] MEDS: FUROSEMIDE 40 MG TABLET PO SCH ×2 (07:37→14:57)
[2016-09-25] MEDS: MAGNESIUM OXIDE 400 MG TABLET PO SCH (07:37)
[2016-09-25] MEDS: ENOXAPARIN SODIUM 40 MG/0.4 ML SYRINGE SUBCUT SCH (08:27)
[2016-09-25] MEDS: sitaGLIPtin Tab 100 MG TAB PO SCH (08:28)
[2016-09-25] MEDS: METOPROLOL SUCCINATE 25 MG SR 24H TABLET PO SCH (08:28)
[2016-09-25] MEDS: LISINOPRIL 5 MG TABLET PO SCH (08:28)
[2016-09-25] MEDS: CHOLECALCIFEROL 1000 IU TABLET PO SCH (08:28)
[2016-09-25] MEDS: ASPIRIN EC 81 MG TABLET PO SCH (08:28)
[2016-09-25] MEDS: POLYETHYLENE GLYCOL 3350 17 GM POWDER PO PRN (08:28)
[2016-09-25] MEDS ORDERED: metFORMIN 500 MG TABLET PO ONE (09:41)
[2016-09-25] MEDS: oxyCODONE-ACETAMINOPHEN 5-325 TAB PO PRN ×2 (10:30→20:12)
--- NOTE | 2016-09-25 11:19 | OT.PROG ---
Progress Note Progress Note: S: Pt. reports pain in low back and neck posteriorly today. Pt also indicating wanting to use his walker today during therapy session to help his back pain. O: Pt seen from 8:15 to 8:45 for occupational therapy. Pt completed toileting task to include toilet hygiene and toilet transfers independently. Pt completed LE and UE dressing while seated EOB with set-up assistance and requiring short rest breaks between tasks. Moist heat applied to lower back and posterior neck X 15 min to reduce pain. Pt participated in the following BUE strengthening and ROM exercises, biceps red T.B X 20, triceps red T.B. X 20, horizontal abduction X 20, ER X 20, IR X 20, and hand strengthening for gross grasp. A: Pt continues to benefit from skilled therapy to address UE strength, activity tolerance with ADL performance, and safety with the use of adaptive equipment as needed. P: Continue POC. Mary Pierson, ANA/JOLIE
--- NOTE | 2016-09-25 11:29 | PT.PROG ---
Progress Note Progress Note: S. Patient states that his back and his neck is hurting a lot today. O. Patient ambulated 175 feet to the therapy gym where he had heat to his back, then performed exercises in the form of; heel toe raises, marches, long arc quads, sit to stands all x 10 bilaterally. Patient ambulated 175 feet back to his room where he was left in his chair with alarm and call light. A. Patient continues to struggle with pain in his knees and back and was unable to perform more exercises due to pain. He would continue to benefit from skilled therapy at this time. P. Continue POC.
--- NOTE | 2016-09-25 15:26 | OT PM DAY ---
Diagnosis : Weakness PM - Occupational Therapy S: The patient reports he is making some gains. He still feels like he is a little bit off balance. O: Today we worked on upper extremity strengthening including upper body ergometer x3 minutes forward and 3 minutes backward, wall pulleys in all planes and ranges, three pound biceps curls, forearm pronation/supination, and wrist extension. We worked on active range of motion of the shoulder as his shoulder is painful with motion. Next we worked on functional reaching activities with cones and working on his balance. We had him reach in diagonal patterns, reach forward, and work on picking up things from the ground with his upper extremities. A: The patient is making gains. He still has a little bit of balance difficulties when reaching down below. P: Continue seeing patient BID during the week and one time per day over the weekend for upper extremity strengthening, ADLs, and overall functional mobility. TRISTA
--- NOTE | 2016-09-25 15:48 | OT PM DAY ---
Diagnosis : Weakness PM - Occupational Therapy S: The patient reports he is doing much better today. O: The patient completed upper body ergometer with low resistance x5-7 minutes. The patient also completed seated wall jeyson exercises with four kilograms including abduction, triceps, biceps, and rows bilaterally followed by seated wrist exercises with two pounds for wrist flexion and wrist extension x10 bilaterally for hand strengthening for gross grasp. A: The patient has demonstrated an increase in activity tolerance. The patient continues to benefit from skilled OT to address upper extremity strength and functional abilities including ADL performance. P: Continue seeing patient BID during the week and one time per day over the weekend for upper extremity strengthening, ADLs, and overall functional mobility. Dictated by: ANA Johnson/JOLIE Supervised by: HARVINDER Nuñez/Gia WESTON
--- NOTE | 2016-09-25 16:44 | PT.PROG ---
Progress Note Progress Note: S. Patient states that he is in a lot of pain in his right shoulder, neck and upper back, this afternoon however he would be willing to go for a walk. O. patient ambulated 150 feet around the nurses station then was left in bed with alarm and call light. A. Patient continues to struggle with pain and appears more weak this afternoon compared to previous treatments. Patient required frequent standing rest breaks during ambulation however was able to complete the whole lap. Patient would continue to benefit from skilled therapy to continue gaining strength and mobility. P. Continue POC.
--- NOTE | 2016-09-25 16:51 | OT.PROG ---
Progress Note Progress Note: Pt reports he is not feeling well this afternoon. Nursing suggests hold pt for occupational therapy services for afternoon session, therefore pt not seen for occupational therapy. ANA Johnson/JOLIE
[2016-09-25] MEDS: metFORMIN ER 500 MG TABLET PO SCH (17:35)
[2016-09-25] MEDS: ATORVASTATIN 40 MG TABLET PO SCH (20:13)
[2016-09-25] MEDS: DOCUSATE 100 MG CAPSULE PO SCH (20:13)
[2016-09-26] MEDS: oxyCODONE-ACETAMINOPHEN 5-325 TAB PO PRN ×4 (01:19→20:25)
[2016-09-26] MEDS: MAGNESIUM OXIDE 400 MG TABLET PO SCH (06:52)
[2016-09-26] MEDS: FUROSEMIDE 40 MG TABLET PO SCH ×2 (06:52→13:43)
[2016-09-26] MEDS: Potassium Chloride Tab 10 MEQ TAB PO SCH (06:52)
[2016-09-26] MEDS: metFORMIN ER 500 MG TABLET PO SCH ×2 (06:52→17:15)
[2016-09-26] MEDS: DOCUSATE 100 MG CAPSULE PO SCH ×2 (08:37→20:26)
[2016-09-26] MEDS: sitaGLIPtin Tab 100 MG TAB PO SCH (08:37)
[2016-09-26] MEDS: ASPIRIN EC 81 MG TABLET PO SCH (08:37)
[2016-09-26] MEDS: ENOXAPARIN SODIUM 40 MG/0.4 ML SYRINGE SUBCUT SCH (08:38)
[2016-09-26] MEDS: LISINOPRIL 5 MG TABLET PO SCH (08:38)
[2016-09-26] MEDS: CHOLECALCIFEROL 1000 IU TABLET PO SCH (08:38)
[2016-09-26] MEDS: METOPROLOL SUCCINATE 25 MG SR 24H TABLET PO SCH (08:38)
--- NOTE | 2016-09-26 11:16 | PT.PROG ---
Progress Note Progress Note: 09/26/2016 10:00-10:30 S: pt reports that he is feeling less dizzy today, but is upset that he was taken off all of his medication O: pt. performed 15x sit to stand. he then went through an obstacle course including foam and hurdles. He ambulated aroound the gym then performed balance on foam 2x 1min. He finished with 10 min on the nustep A: pt. performed all exercise, but was very thirsty through the session. He was worried about walking and balancing on foam because it reminds him of how he fell. He does report some Sx synonymous with a vestibular issue, which was affirmed with his difficulty balancing on foam. He was able to balance well for 1 min, but had large amplitude sway and needed to be supervised and corrected at times. P: progress balance activity and work on walking over more difficult courses.
--- NOTE | 2016-09-26 14:01 | OT.PROG ---
Progress Note Progress Note: S: pt stated thats he preferred getting a shower now before going down for therapy. He reports back pain, but neck and shoulder pain hurt more. O: pt was seen in his room, he was prepped for shower and set up was completed for him. He completed transfer to shower room approx 100 ft and completed donning Of UE Ind , LE with Min a. He then completed showering with MOd Ind. He dried himself with exception of feet. He completed another transfer back to room another 100f t. After he sat he completed donning Of socks Ind with use of sock aid. He transferred to therapy gym with walker and CGA for safety. He was set up on moist heat. A: pt does appear to have a lot of pain in UE/back. He does have good activity tolerance, and prefers to walk with walker. P: continue per plan of care.
--- NOTE | 2016-09-26 16:19 | OT.PROG ---
Progress Note Progress Note: S: pt reported a lot of pain in back, neck and shoulder and he did not want to go downstairs for therapy. O: pt was seen in his room today setting upright. He needed min A with bed mobility as he was set up for heat to decrease pain in back, neck and shoulder. Heat was removed within 25 min. A: pt's pain is limiting his overall ability to participate in therapy. P: continue to progress per POC.
--- NOTE | 2016-09-26 17:09 | PT.PROG ---
Progress Note Progress Note: S. Patient states that he is in a lot of pain in his right shoulder, neck and upper back, this afternoon however he would be willing to go for a walk. O. patient ambulated 150 feet around the nurses station then performed sit to stands x 5 he was left in bed with alarm and call light. A. Patient continues to struggle with pain and appears be weak again this afternoon. Patient required frequent standing rest breaks during ambulation however was able to complete the whole lap. Patient would continue to benefit from skilled therapy to continue gaining strength and mobility. P. Continue POC.
[2016-09-26] MEDS: ATORVASTATIN 40 MG TABLET PO SCH (20:26)
[2016-09-26] MEDS: Senna Tab 8.6 MG TAB PO SCH (20:26)
[2016-09-27] MEDS: MAGNESIUM OXIDE 400 MG TABLET PO SCH (06:50)
[2016-09-27] MEDS: FUROSEMIDE 40 MG TABLET PO SCH ×2 (06:50→14:32)
[2016-09-27] MEDS: metFORMIN ER 500 MG TABLET PO SCH ×2 (06:50→16:34)
[2016-09-27] MEDS: ENOXAPARIN SODIUM 40 MG/0.4 ML SYRINGE SUBCUT SCH (08:08)
[2016-09-27] MEDS: LISINOPRIL 5 MG TABLET PO SCH (08:08)
[2016-09-27] MEDS: METOPROLOL SUCCINATE 25 MG SR 24H TABLET PO SCH (08:08)
[2016-09-27] MEDS: sitaGLIPtin Tab 100 MG TAB PO SCH (08:09)
[2016-09-27] MEDS: ASPIRIN EC 81 MG TABLET PO SCH (08:09)
[2016-09-27] MEDS: oxyCODONE-ACETAMINOPHEN 5-325 TAB PO PRN (08:09)
[2016-09-27] MEDS: DOCUSATE 100 MG CAPSULE PO SCH ×2 (08:09→20:38)
[2016-09-27] MEDS: POLYETHYLENE GLYCOL 3350 17 GM POWDER PO PRN (08:10)
[2016-09-27] MEDS: CHOLECALCIFEROL 1000 IU TABLET PO SCH (08:10)
[2016-09-27] MEDS: CELECOXIB 200 MG CAPSULE PO SCH ×2 (09:28→20:38)
--- NOTE | 2016-09-27 10:40 | OT.PROG ---
Progress Note Progress Note: Pt refused therapy today secondary to increase pain, reported in knees, shoulder , back and neck. He stated that he doesn't think he has arthritis.
--- NOTE | 2016-09-27 14:59 | PT.PROG ---
Progress Note Progress Note: Patient refused therapy this morning. He reports that he is in a lot of pain and does not want to do any therapy.
--- NOTE | 2016-09-27 15:00 | PT.PROG ---
Progress Note Progress Note: Patient refused therapy again this afternoon he continues to struggle with pain.
--- NOTE | 2016-09-27 16:15 | OT.PROG ---
Progress Note Progress Note: S: pt states that he is still hurting. He did not really want to get out of bed. O: pt was seen in his room in the p.m. He was educated on use of supervisor esters and emulsifiers with use of LE pants and socks. He completed use of supervisor esters and emulsifiers doffing of socks and then donned the sock with sock aid Ind. He completed bed mobility with mod Ind as it takes him longer to complete. pt was left in sidelying position with alarm on and call light within reach. A: pt completed use of A.E ind today and was educate on importance of continue to stay moving to maintain function. He may benefit from aquatic therapy. P: continue per plan of care.
[2016-09-27] MEDS: Senna Tab 8.6 MG TAB PO SCH (20:38)
[2016-09-27] MEDS: ATORVASTATIN 40 MG TABLET PO SCH (20:38)
[2016-09-28] MEDS: FUROSEMIDE 40 MG TABLET PO SCH ×2 (06:35→13:15)
[2016-09-28] MEDS: metFORMIN ER 500 MG TABLET PO SCH ×2 (06:35→17:34)
[2016-09-28] MEDS: Potassium Chloride Tab 10 MEQ TAB PO SCH (06:35)
[2016-09-28] MEDS: MAGNESIUM OXIDE 400 MG TABLET PO SCH (06:35)
[2016-09-28] MEDS: CELECOXIB 200 MG CAPSULE PO SCH ×2 (08:32→20:33)
[2016-09-28] MEDS: CHOLECALCIFEROL 1000 IU TABLET PO SCH (08:32)
[2016-09-28] MEDS: LISINOPRIL 5 MG TABLET PO SCH (08:32)
[2016-09-28] MEDS: METOPROLOL SUCCINATE 25 MG SR 24H TABLET PO SCH (08:32)
[2016-09-28] MEDS: sitaGLIPtin Tab 100 MG TAB PO SCH (08:32)
[2016-09-28] MEDS: DOCUSATE 100 MG CAPSULE PO SCH ×2 (08:32→20:33)
[2016-09-28] MEDS: ENOXAPARIN SODIUM 40 MG/0.4 ML SYRINGE SUBCUT SCH (08:32)
[2016-09-28] MEDS: ASPIRIN EC 81 MG TABLET PO SCH (08:32)
--- NOTE | 2016-09-28 09:54 | PT.PROG ---
Progress Note Progress Note: S. Patient states that he is feeling a little better today, he continues to complain of pain however. O. Patient ambulated 175 feet to the therapy gym where he used the nu-step x 10 minutes, then performed seated exercises in the form of; heel toe raises, marches, long arc quads all with 1# weights x 10 bilaterally, Sit to stands and box step ups (#2 box) x 7. Patient ambulated 175 feet back to his room where he was left in his chair with alarm and call light. A. Patient continues to struggle with pain however is making gains with mobility and endurance. He requires min assist with ambulation and bed mobility , He would continue to benefit from skilled therapy and is not safe at this time to be home alone. P. continue POC.
--- NOTE | 2016-09-28 16:21 | PDOC(PROG) ---
Date and Time of Service: 09/28/2016, 1620 Interval History: No chest pain and no shortness breath. No nausea or vomiting. Overall feels like he is doing okay with therapy although he had some sore shoulders earlier this week. Objective : Data - Labs CBC and BMP: 09/24/16 05:01 09/24/16 05:01 Objective : Exam - General General Appearance: No Acute Distress, Cooperative Additional General Exam Details: Vital Signs - Last Taken Temperature 97.3 F 09/28/16 06:38 Pulse Rate 72 09/28/16 06:38 Respiratory Rate 18 09/28/16 06:38 Blood Pressure 113/61 09/28/16 06:38 Pulse Ox 96 09/28/16 06:38 - Respiratory Respiratory Exam: Clear to Auscultation - Bilaterally, Breathing Non Labored - Cardiovascular Cardiovascular Exam: RRR, No Murmur, No Clicks, No Gallops, No Rubs, JVD - GI/Abdominal GI/Abdominal Exam: Normal Bowel Sounds, Non Tender, Non Distended, Soft - Extremities Extremities Exam: No Clubbing Present, No Edema Present, No Cyanosis Present Additional Extremities Exam Details: Arthritic changes of joints. - Neurological Neurological Exam: Alert, Oriented x 3, No Facial Droop, Speech Intact / Clear, Moves All Extremities Equally Assessment and Plan - Patient Problems (1) Weakness Current Visit: Yes Status: Acute (2) Diabetes Current Visit: No Status: Chronic Qualifiers: Diabetes mellitus type: type 2 Diabetes mellitus complication status: without complication Diabetes mellitus predatory animal exterminator insulin use: without predatory animal exterminator use Qualified Description: Type 2 diabetes mellitus without complication, without long-term current use of insulin Qualifier Code(s): (E11.9) Type 2 diabetes mellitus without complications (3) Dizziness Current Visit: Yes Status: Resolved (4) Hypertension Current Visit: Yes Status: Chronic Qualifiers: Hypertension type: essential hypertension Qualified Description: Essential hypertension Qualifier Code(s): (I10) Essential (primary) hypertension - Assessment / Plan Additional Assessment/Plan Details: Continue PT and OT. Has adjusted well to Toprol XL in place of Coreg and is not overly bradycardic and does not experience any lightheadedness at this time. He denied that. No change medications at this time. Hopefully home sometime this week depending on progress with weakness and deconditioning.
[2016-09-28] MEDS: oxyCODONE-ACETAMINOPHEN 5-325 TAB PO PRN (19:05)
[2016-09-28] MEDS: Senna Tab 8.6 MG TAB PO SCH (20:32)
[2016-09-28] MEDS: ATORVASTATIN 40 MG TABLET PO SCH (20:33)
[2016-09-29] MEDS: FUROSEMIDE 40 MG TABLET PO SCH ×2 (07:35→13:01)
[2016-09-29] MEDS: MAGNESIUM OXIDE 400 MG TABLET PO SCH (07:35)
[2016-09-29] MEDS: metFORMIN ER 500 MG TABLET PO SCH ×2 (07:35→16:39)
[2016-09-29] MEDS: DOCUSATE 100 MG CAPSULE PO SCH ×2 (09:02→20:16)
[2016-09-29] MEDS: METOPROLOL SUCCINATE 25 MG SR 24H TABLET PO SCH (09:02)
[2016-09-29] MEDS: CHOLECALCIFEROL 1000 IU TABLET PO SCH (09:03)
[2016-09-29] MEDS: LISINOPRIL 5 MG TABLET PO SCH (09:03)
[2016-09-29] MEDS: ENOXAPARIN SODIUM 40 MG/0.4 ML SYRINGE SUBCUT SCH (09:03)
[2016-09-29] MEDS: ASPIRIN EC 81 MG TABLET PO SCH (09:03)
[2016-09-29] MEDS: CELECOXIB 200 MG CAPSULE PO SCH ×2 (09:03→20:16)
[2016-09-29] MEDS: sitaGLIPtin Tab 100 MG TAB PO SCH (09:03)
--- NOTE | 2016-09-29 09:58 | OT.PROG ---
Progress Note Progress Note: S: pt was in his bed finishing breakfast upon arrival. pt reports he was willing to go to therapy. pt is on 2 liters of O2. O: pt completed bed mobility, UE,LE dressing with SBA for setup. sit to stand functional ambulation 150 feet with FWW to therapy with CGA for safety only. while in therapy. pt completed the arm bike 4/5, nustep 5 min, UE rows with red TB 10 reps and around the clocks, pt reports he hurt his shoulder in therapy a few days ago so he does not want to do to much. pt than completed greed digi flex, and red flex bar for hand and forearm strengthening. pt than ambulated back to his room. A: pt is doing well he tolerated activities and only complains of pain in his knees from being old. P:pt is doing well and we will cont per POC
[2016-09-29] MEDS: ACETAMINOPHEN 325 MG TABLET PO PRN ×2 (14:41→20:16)
[2016-09-29] MEDS: ATORVASTATIN 40 MG TABLET PO SCH (20:16)
[2016-09-29] MEDS: Senna Tab 8.6 MG TAB PO SCH (20:16)
[2016-09-29] MEDS ORDERED: Sodium Chloride 0.9% 500 ML ONE (23:27)
[2016-09-29] MEDS ORDERED: Sodium Chloride 0.9% 500 ML PRIMARY IV ONE (23:40)
[2016-09-30] MEDS: FUROSEMIDE 40 MG TABLET PO SCH (06:33)
[2016-09-30] MEDS ORDERED: Sodium Chloride 0.9% 500 ML ONE (06:38)
[2016-09-30] MEDS: Potassium Chloride Tab 10 MEQ TAB PO SCH (06:39)
[2016-09-30] MEDS: MAGNESIUM OXIDE 400 MG TABLET PO SCH (06:39)
[2016-09-30] MEDS: metFORMIN ER 500 MG TABLET PO SCH ×2 (06:39→16:44)
[2016-09-30] MEDS ORDERED: Sodium Chloride 0.9% 500 ML IV ONE (07:02)
[2016-09-30] MEDS: ASPIRIN EC 81 MG TABLET PO SCH (08:07)
[2016-09-30] MEDS: CHOLECALCIFEROL 1000 IU TABLET PO SCH (08:07)
[2016-09-30] MEDS: ENOXAPARIN SODIUM 40 MG/0.4 ML SYRINGE SUBCUT SCH (08:07)
[2016-09-30] MEDS: sitaGLIPtin Tab 100 MG TAB PO SCH (08:08)
[2016-09-30] MEDS: CELECOXIB 200 MG CAPSULE PO SCH ×2 (08:08→21:59)
[2016-09-30] MEDS: DOCUSATE 100 MG CAPSULE PO SCH ×2 (08:08→21:59)
[2016-09-30] MEDS: LISINOPRIL 5 MG TABLET PO SCH (09:34)
--- NOTE | 2016-09-30 10:23 | OT.PROG ---
Progress Note Progress Note: S: pt states that his pain is not as bad as last week. O: pt was seen in his room in the a.m. He was willing to go across the [place] for a shower this morning. He completed all showering and dressing Ind today. He used the sock aid to jorge socks Ind. He was left at sink to shave with call light within reach and nursing notified. A: pt completed all tasks this morning Ind. He is probably getting close to displaying ability to return home. P: continue per plan of care.
--- NOTE | 2016-09-30 13:09 | PT.PROG ---
Progress Note Progress Note: S. Patient stated that he is stiff and sore again this morning and he reports he didn't have a good night. O. Patient ambulated 150 feet around the nurses station then performed seated exercises in the form of; long arc quads, heel toe raises, marches, pillow squeezes, and resisted knee flexion all x 10 bilaterally. Patient was left on the edge of the bed with alarm and call light. A. Patient continues to struggle with pain however is making gains with mobility. He required short standing rest breaks during ambulation and complained of his arms hurting. He continues to require SBG assist during ambulation. Patient would continue to benefit from skilled therapy at this time. P. Continue POC.
--- NOTE | 2016-09-30 13:19 | PDOC(PROG) ---
Date and Time of Service: 09/30/2016, 1315 Interval History: No completes of chest pain, shortness breath. Not feeling overly well as he's had some dizziness and lightheadedness in particular. Systolic pressure last night was 78, and he required fluid bolus. Today, we have stopped metoprolol, and I will stop Lasix as well. I look with the patient regarding this, and if noticed even in the clinic since 2016 the patient has had low normal systolic blood pressures in the low 100s range. I think he is not tolerating some of these medications quite as well, and I also reviewed an ejection fraction on an [place] [facility] [place] showed an ejection fraction of 45% with what looks like anterior hypokinesis. It is documented that the patient may have had a nuclear stress test in 2013 that was found to be negative for acute ischemic disease. Objective : Data - Labs CBC and BMP: 09/24/16 05:01 09/24/16 05:01 Labs - Last 24 Hours: Laboratory Results 09/24/16 09/24/16 Range/Units 05:01 05:26 WBC 9.35 (4.8-10.8) 10^3/uL RBC 4.75 (4.70-6.10) 10^6/uL Hgb 14.1 (14.0-18.0) g/dL Hct 43.3 (42.0-52.0) % MCV 91.2 H (80-90) FL MCH 29.7 (27-31) PG MCHC 32.6 L (33-37) g/dL RDW Std Deviation 45.0 (39-50) fL RDW Coeff of Sandra 13.9 (11.5-14.5) % Plt Count 238 (140-350) 10*3/uL MPV 9.1 (7.4-12.2) FL Immature Gran % (Auto) 0.4 (0-5) % Neut % (Auto) 63.2 (50-80) % Lymph % (Auto) 20.5 (10-50) % Ogle % (Auto) 11.0 (5-15) % Eos % (Auto) 4.3 (0-8) % Baso % (Auto) 0.6 (0-1) % Immature Gran # (Auto) 0.04 10*3/UL Neut # (Auto) 5.90 10*3/UL Lymph # (Auto) 1.92 10*3/uL Ogle # (Auto) 1.03 H (0.3-0.8) 10*3/UL Eos # (Auto) 0.40 10*3/UL Baso # (Auto) 0.06 10*3/UL WBC Morphology Comment Normal morphology (NORM) Plt Morphology Comment Normal morphology (NORM) RBC Morph Comment Normal morphology (NORM) Sodium 139 (135-145) meq/L Potassium 4.0 (3.8-5.2) meq/L Chloride 102 (98-112) meq/L Carbon Dioxide 28 (23-33) meq/L Anion Gap 9 (5-20) BUN 18 (7-22) mg/dL Creatinine 0.8 (0.70-1.50) mg/dL Estimated GFR (>60 ml/min/1.73m(2)) BUN/Creatinine Ratio 22.50 H (6-20) Glucose 183 H (78-110) mg/dL Calculated Osmolality 294.0 H (267-292) mOsm/kg Calcium 9.2 (8.7-10.7) mg/dL Magnesium 1.5 L (1.6-2.4) mg/dL Total Bilirubin 0.7 (0.3-1.2) mg/dL AST 31 (21-57) IU/L ALT 38 (21-72) IU/L Alkaline Phosphatase 84 (38-126) IU/L NT-Pro-B Natriuret Pep 1010 H (0-450) PG/ML Total Protein 6.7 (6.1-8.0) g/dL Albumin 3.4 L (3.5-4.8) g/dL Globulin 3.3 (2.50-4.10) g/dL Albumin/Globulin Ratio 1.00 L (1.3-2.0) mg/g Objective : Exam - General General Appearance: No Acute Distress, Cooperative Additional General Exam Details: Vital Signs - Last Taken Temperature 97.6 F 09/30/16 06:28 Pulse Rate 80 09/30/16 07:03 Respiratory Rate 17 09/30/16 07:08 Blood Pressure 119/59 09/30/16 11:56 Pulse Ox 95 09/30/16 06:28 We did orthostatic blood pressures and those were negative. His systolic did not vary from about 100-110 in any position. - Eye Eye Exam: No Scleral Icterus - Respiratory Respiratory Exam: Clear to Auscultation - Bilaterally, Breathing Non Labored - Cardiovascular Cardiovascular Exam: RRR, No Murmur, No Clicks, No Gallops, No Rubs, No JVD - GI/Abdominal GI/Abdominal Exam: Normal Bowel Sounds, Non Tender, Non Distended, Soft - Extremities Extremities Exam: No Clubbing Present, No Edema Present, No Cyanosis Present Additional Extremities Exam Details: Arthritic changes in joints. Absolutely no edema. - Neurological Neurological Exam: Alert, Oriented x 3, No Facial Droop, Speech Intact / Clear, Moves All Extremities Equally Assessment and Plan - Patient Problems (1) Hypotension Current Visit: Yes Status: Acute Qualifiers: Hypotension type: hypotension due to drug Qualified Description: Hypotension due to drugs Qualifier Code(s): (I95.2) Hypotension due to drugs (2) Dizziness Current Visit: Yes Status: Resolved (3) Weakness Current Visit: Yes Status: Acute (4) Diabetes Current Visit: No Status: Chronic Qualifiers: Diabetes mellitus type: type 2 Diabetes mellitus complication status: without complication Diabetes mellitus chcf insulin use: without predatory animal exterminator use Qualified Description: Type 2 diabetes mellitus without complication, without long-term current use of insulin Qualifier Code(s): (E11.9) Type 2 diabetes mellitus without complications (5) Hypertension Current Visit: Yes Status: Chronic Qualifiers: Hypertension type: essential hypertension Qualified Description: Essential hypertension Qualifier Code(s): (I10) Essential (primary) hypertension - Assessment / Plan Additional Assessment/Plan Details: Overall, I think the patient may have medication-induced hypotension as I noticed his blood pressures have been in the low 100 systolic fairly consistently even in the clinic. At this point, stop the beta karen and stop Lovenox. If we do add back the beta karen he probably won't be able to tolerate a dose greater than 12.5 mg daily. Ultimately adding a beta karen might help his heart failure status stable as possible, I also think with the hypokinesis, that it could be that he's having presyncopal symptoms from coronary artery disease. Thus far, no evidence for arrhythmias. I do not think this is postconcussive syndrome. The sequence of events is that he had 2 falls, one of them exertional in nature, while he was blowing weans and grass off of his deck, and the other one where he just fell in the gutter. Either way, this certainly qualifies for undiagnosed syncope and it is not neurologic in nature. It sounds suspicious for cardiac etiology. I would like to watch patient's blood pressures for the next 48 hours, then consider an outpatient stress test, as well as outpatient Holter monitoring/ event monitoring. The patient was agreeable to this plan. In the meantime I will review all of his records that we have available from [facility], and I have actually done that now, and it showed that he has ejection fraction of 45% and diastolic dysfunction. There was hypokinesis as well. The patient is not safe to go home given his hypertensive issues with medications, and requires further medication adjustments prior to discharge.
[2016-09-30 15:26] VITALS: RESP 20
[2016-09-30] MEDS: oxyCODONE-ACETAMINOPHEN 5-325 TAB PO PRN (15:54)
--- NOTE | 2016-09-30 16:02 | PT.PROG ---
Progress Note Progress Note: S. Patient states that he is feeling better this afternoon, he was willing to go to the therapy gym. O. Patient ambulated 175 feet to the therapy gym where he performed seated exercises in the form of; long arc quads, heel toe raises, marches, ball squeezes, clamshells, sit to stands all x 10. Patient ambulated 175 feet back to his room where he was left in bed with nursing. A. Patient was very fatigued after working with OT and was not willing to do much therapy. He continues to have weakness, however is making gains with strength and mobility. Patient would continue to benefit from skilled therapy at this time. P. Continue POC.
--- NOTE | 2016-09-30 16:52 | OT.PROG ---
Progress Note Progress Note: S: Pt stated he is feeling better, he believes he has been fighting his blood pressure for a while now. He reports that he is not sure if he will ever get out of her. O: pt was seen in his room in the p.m. He completed functional transfer to bathroom and completed all toileting Ind. He completed functional transfer approx 175 ft. He completed 10 min on UE bike to increase activity tolerance. He also completed x10 on #3 and #4 box with CGA only for safety. He was turned over to PT at this point. A: pt appears to be somewhat depressed at this time and does not appear to be very motivated for therapy. Fortunately he does most of his ADL's Ind and transfers well with walker. He may benefit from some eventual care/supervision throughout the week. P: continue to progress per plan of care in preparation for return home.
[2016-09-30] MEDS: ATORVASTATIN 40 MG TABLET PO SCH (21:58)
[2016-09-30] MEDS: Senna Tab 8.6 MG TAB PO SCH (21:59)
[2016-10-01] MEDS: MAGNESIUM OXIDE 400 MG TABLET PO SCH (06:53)
[2016-10-01] MEDS: metFORMIN ER 500 MG TABLET PO SCH (06:53)
[2016-10-01] MEDS: DOCUSATE 100 MG CAPSULE PO SCH (08:24)
[2016-10-01] MEDS: CELECOXIB 200 MG CAPSULE PO SCH (08:25)
[2016-10-01] MEDS: sitaGLIPtin Tab 100 MG TAB PO SCH (08:25)
[2016-10-01] MEDS: CHOLECALCIFEROL 1000 IU TABLET PO SCH (08:25)
[2016-10-01] MEDS: ASPIRIN EC 81 MG TABLET PO SCH (08:25)
[2016-10-01] MEDS: oxyCODONE-ACETAMINOPHEN 5-325 TAB PO PRN (08:25)
[2016-10-01 08:49] VITALS: TEMP 97.4
[2016-10-01] MEDS: LISINOPRIL 5 MG TABLET PO SCH (09:26)
--- NOTE | 2016-10-01 11:10 | PT.PROG ---
Progress Note Progress Note: S. Patient stated that he is feeling better than yesterday however is still not feeling great. O. Patient ambulated 175 feet to the therapy gym where he used the nu-step x 10 minutes then performed seated exercises in the form of; heel toe raises, marches , long arc quads, ball squeezes, resisted knee flexion, sit to stands all x 10. Patient was left with OT for further therapy. A. Patient tolerated exercises fair this morning he continues to struggle with knee pain however is making gains with mobility and endurance. Patient has met goals at this time however would continue to benefit from therapy to increase strength and endurance. P. Continue POC.
--- NOTE | 2016-10-01 14:15 | DCSUMMARY ---
Hospitalization Summary Admit Date: 09/21/16 Discharge Date: 10/01/16 Primary Diagnosis:: weakness with dizziness and lightheadedness Hospital Course: This very pleasant 75-year-old male that was admitted here initially in the setting of dizziness and lightheadedness and was found or thought to have postconcussive syndrome. He continued to have issues with this, and weakness and so he was admitted to the swing bed for additional therapy and medication monitoring. His blood pressure medications were stopped, resumed, but he continued to have hypotension develop at this, and so a couple of them were stopped again. It's unclear whether or not he could have some issues with lightheadedness related to coronary artery disease or arrhythmia, but arrhythmia has been worked up fairly extensively in [place]. We felt that an event monitor might help ascertain more of these issues to light. In addition, I did recommend repeat nuclear stress testing of the heart, and potential heart catheterization down the road depending on how the symptoms progress. I have written a prescription for the stress test but the patient adamantly stressed to me that he wanted to discuss with his primary care provider first. In terms of therapy, the patient did very well and he is actually cleared from physical therapy to go home. They do think he benefit from more therapy but the patient will not outpatient. We will also stop the patient's son and urea as he had some lower blood sugars and we felt that it would be okay for the patient to stay on Glucophage and Januvia alone. He did well on this regimen. Today, no complains of chest pain, shortness breath, nausea or vomiting. Patient felt slightly dizzy earlier this morning, but notably his systolic blood pressures and standing sitting and lying positions were all negative yesterday. Assessment and Plan: 1. As per discharge assessments noted 2. Disposition: Patient is discharged home. 3. Condition on discharge, stable and improved. 4. Diet: regular diet 5. Activities: resume normal activities, I asked the patient to consider using a cane or walker, particularly with position changes and to slowly change positions such as from sitting to standing. 6. Follow-Up: 1. Primary care physician in one week, Dr. Nieves 2. Stress test in 2 weeks 3. Event monitor 7. Medications at the Time of Discharge: Home Medications Medication Instructions Recorded Confirmed Type Aspirin [Aspirin EC] 81 mg PO DAILY tab 10/12/12 09/19/16 History Multivits,Ca,Min/Iron/FA/Lycop 1 tab PO DAILY 09/06/14 09/19/16 History [Centrum Ultra Men's Tablet] Cholecalciferol (Vitamin D3) 1 tab PO QD #30 tab 11/07/14 09/19/16 Clinic [Vitamin D3] Docusate Sodium [Stool Softener] 2 tab PO QHS #60 tab 04/14/15 09/19/16 Clinic Ibuprofen 4 tab PO BID #240 tab 04/14/15 09/19/16 Clinic Sitagliptin Phosphate [Januvia] 1 tab PO QD #90 tab 12/18/15 09/19/16 Clinic Potassium Chloride 1 cap PO 3XW #12 cap 06/13/16 09/19/16 Clinic Atorvastatin Calcium 1 tab PO QHS #30 tab 09/09/16 09/19/16 Clinic Lisinopril 0.5 tab PO QD #30 tab 10/01/16 09/19/16 Rx metFORMIN Tab [Glucophage Tab] 850 mg PO BID #60 tablet 10/01/16 Rx 8. Time, care, counseling and coordination of care for this discharge is greater than 30 minutes. Exam - Vitals Vital Signs: Vital Signs Temperature 97.4 F Temperature Source Temporal Artery Scan Pulse Rate [Apical] 80 Pulse Rate [Pulse Oximeter] 97 Respiratory Rate 20 Blood Pressure [Lying] 108/53 Blood Pressure [Sitting] 112/69 Blood Pressure [Standing] 119/59 Blood Pressure [Right Arm] 117/59 Blood Pressure [Left Arm] 127/67 Blood Pressure [Right Radial 123/68 Artery] Pulse Ox 95 Oxygen Flow Rate 2 Oxygen Delivery Method Nasal Cannula Height 5 ft 6 in Weight 248 lb 3.2 oz - General General Appearance: POSITIVE: No Acute Distress, Cooperative - Respiratory Respiratory Exam: POSITIVE: Clear to Auscultation - Bilaterally, Breathing Non Labored - Cardiovascular Cardiovascular Exam: POSITIVE: RRR, No Murmur, No Clicks, No Gallops, No Rubs, No JVD - GI/Abdominal GI/Abdominal Exam: POSITIVE: Normal Bowel Sounds, Non Tender, Non Distended, Soft - Extremities Extremities Exam: POSITIVE: No Clubbing Present, No Edema Present, No Cyanosis Present - Neurological Neurological Exam: POSITIVE: Alert, Oriented x 3, No Facial Droop, Speech Intact / Clear, Moves All Extremities Equally Data Perinent Studies: Laboratory Results 09/24/16 09/24/16 Range/Units 05:01 05:26 WBC 9.35 (4.8-10.8) 10^3/uL RBC 4.75 (4.70-6.10) 10^6/uL Hgb 14.1 (14.0-18.0) g/dL Hct 43.3 (42.0-52.0) % MCV 91.2 H (80-90) FL MCH 29.7 (27-31) PG MCHC 32.6 L (33-37) g/dL RDW Std Deviation 45.0 (39-50) fL RDW Coeff of Sandra 13.9 (11.5-14.5) % Plt Count 238 (140-350) 10*3/uL MPV 9.1 (7.4-12.2) FL Immature Gran % (Auto) 0.4 (0-5) % Neut % (Auto) 63.2 (50-80) % Lymph % (Auto) 20.5 (10-50) % Hardin % (Auto) 11.0 (5-15) % Eos % (Auto) 4.3 (0-8) % Baso % (Auto) 0.6 (0-1) % Immature Gran # (Auto) 0.04 10*3/UL Neut # (Auto) 5.90 10*3/UL Lymph # (Auto) 1.92 10*3/uL Hardin # (Auto) 1.03 H (0.3-0.8) 10*3/UL Eos # (Auto) 0.40 10*3/UL Baso # (Auto) 0.06 10*3/UL WBC Morphology Comment Normal morphology (NORM) Plt Morphology Comment Normal morphology (NORM) RBC Morph Comment Normal morphology (NORM) Sodium 139 (135-145) meq/L Potassium 4.0 (3.8-5.2) meq/L Chloride 102 (98-112) meq/L Carbon Dioxide 28 (23-33) meq/L Anion Gap 9 (5-20) BUN 18 (7-22) mg/dL Creatinine 0.8 (0.70-1.50) mg/dL Estimated GFR (>60 ml/min/1.73m(2)) BUN/Creatinine Ratio 22.50 H (6-20) Glucose 183 H (78-110) mg/dL Calculated Osmolality 294.0 H (267-292) mOsm/kg Calcium 9.2 (8.7-10.7) mg/dL Magnesium 1.5 L (1.6-2.4) mg/dL Total Bilirubin 0.7 (0.3-1.2) mg/dL AST 31 (21-57) IU/L ALT 38 (21-72) IU/L Alkaline Phosphatase 84 (38-126) IU/L NT-Pro-B Natriuret Pep 1010 H (0-450) PG/ML Total Protein 6.7 (6.1-8.0) g/dL Albumin 3.4 L (3.5-4.8) g/dL Globulin 3.3 (2.50-4.10) g/dL Albumin/Globulin Ratio 1.00 L (1.3-2.0) mg/g Patient Problems - Patient Problem List (1) Weakness Current Visit: Yes Status: Acute (2) Dizziness Current Visit: Yes Status: Resolved (3) Hypotension Current Visit: Yes Status: Resolved Qualifiers: Hypotension type: hypotension due to drug Qualified Description: Hypotension due to drugs Qualifier Code(s): (I95.2) Hypotension due to drugs (4) Diabetes Current Visit: No Status: Chronic Qualifiers: Diabetes mellitus type: type 2 Diabetes mellitus complication status: without complication Diabetes mellitus rodent exterminator insulin use: without penitentiary use Qualified Description: Type 2 diabetes mellitus without complication, without long-term current use of insulin Qualifier Code(s): (E11.9) Type 2 diabetes mellitus without complications (5) Hypertension Current Visit: Yes Status: Chronic Qualifiers: Hypertension type: essential hypertension Qualified Description: Essential hypertension Qualifier Code(s): (I10) Essential (primary) hypertension
--- NOTE | 2016-10-02 12:50 | OT AM DAY ---
Diagnosis : Weakness AM - Occupational Therapy S: The patient wasn't feeling good earlier this morning, but he did agree to come down to therapy. O: Today the patient was able to complete upper extremity strengthening activities including flex bar, Jaya twist, red theraband resisted rows, biceps curls, internal/external rotation, shoulder adduction, shoulder extension, and triceps x15-20 repetitions bilaterally. The patient also completed digi-flex for hand strength. The patient then walked up to the third floor where he completed a shower/bathtub transfer with the use of grab bars in the front and on the side. He had some difficulty raising his right leg above the tub but was able to do so with the use of the bars. He does state that he does have a shower chair in his home that he will put in the bathtub when showering. This was one concern the patient's daughter had. A: The patient was able to complete strengthening activities and shower transfer this morning. P: Continue seeing patient BID during the week and one time per day over the weekend until discharge. TRISTA
== END 2016-10-01 15:20 | disposition home or self-care (01) | DRG 948 ==
LOC: MED/SURG 07:55 → UNDOADMIN 17:59
PROVIDERS: ADMIT Internal Medicine; ATTEND Internal Medicine
DX: R53.1 Weakness (principal); R42 Dizziness and giddiness; I95.9 Hypotension, unspecified; E11.9 Type 2 diabetes mellitus without complications; I10 Essential (primary) hypertension; F07.81 Postconcussional syndrome; E78.00 Pure hypercholesterolemia, unspecified; I50.9 Heart failure, unspecified
CPT/HCPCS: 36415; 80053; 82948; 83735; 83880; 85025; 94761; 97110; 97164; 97166; 97530; 97535; J1650; J7040

== ENCOUNTER → 2016-10-10 | Outpatient (CLI) | payer OTHER, MEDICARE | LOC: MMPC 11:11 | DX: R42 Dizziness and giddiness (principal); E11.9 Type 2 diabetes mellitus without complications; E78.5 Hyperlipidemia, unspecified; I10 Essential (primary) hypertension; E66.9 Obesity, unspecified; I50.9 Heart failure, unspecified | CPT/HCPCS: 99213; G0463 ==

== ENCOUNTER → 2016-11-06 | Outpatient (CLI) | payer OTHER, MEDICARE ==
[2016-11-06 11:48] LABS: BASOPHILS # (AUTO) 0.09 10*3/UL; BASOPHILS % (AUTO) 0.8 % (0-1); EOSINOPHILS # (AUTO) 0.24 10*3/UL; EOSINOPHILS % (AUTO) 2.2 % (0-8); HEMATOCRIT 42.2 % (42.0-52.0); HEMOGLOBIN 14.1 g/dL (14.0-18.0); MEAN CORPUSCULAR HEMOGLOBIN 30.4 PG (27-31); MEAN CORPUSCULAR HGB CONC 33.4 g/dL (33-37); MEAN CORPUSCULAR VOLUME 90.9 FL (80-90); MEAN PLATELET VOLUME 9.9 FL (7.4-12.2); MONOCYTES # (AUTO) 0.81 10*3/UL (0.3-0.8); MONOCYTES % (AUTO) 7.5 % (5-15); NEUTROPHILS # (AUTO) 7.33 10*3/UL; NEUTROPHILS % (AUTO) 67.8 % (50-80); RED BLOOD COUNT 4.64 10^6/uL (4.70-6.10)
[2016-11-06 11:52] LABS: PLATELET MORPHOLOGY COMMENT NORMAL MORPHOLOGY (NORM); RBC MORPHOLOGY COMMENT NORMAL MORPHOLOGY (NORM); WBC MORPHOLOGY COMMENT NORMAL MORPHOLOGY (NORM)
[2016-11-06 11:56] LABS: BUN/CREATININE RATIO 28.75 (6-20); CALCIUM 9.6 mg/dL (8.7-10.7)
[2016-11-06 12:04] LABS: HEMOGLOBIN A1C 8.71 % (4.2-6.0)
== END ==
LOC: MOB LAB 10:06
DX: E11.9 Type 2 diabetes mellitus without complications (principal); R42 Dizziness and giddiness; I10 Essential (primary) hypertension; E78.5 Hyperlipidemia, unspecified; I50.9 Heart failure, unspecified; E66.9 Obesity, unspecified
CPT/HCPCS: 36415; 80048; 83036; 85025

== ENCOUNTER 2017-11-26 05:53 | Observation (INO) ==
[2017-11-26] MEDS ORDERED: Sodium Chloride 0.9% 1,000 ML PRIMARY IV ONE (06:14)
--- NOTE | 2017-11-26 06:20 | EKG ---
[address] [address] Measurements Intervals [place] Rate: 77 P: 35 W[place]: 218 QRS: 55 QRSD: 167 T: 102 QT: 422 QTc: 453 Interpretive Statements SINUS RHYTHM WITH FIRST DEGREE AV BLOCK LEFT BUNDLE BRANCH BLOCK [120+ ms QRS DURATION, 80+ ms Q/S IN V1/V2, 85+ ms R IN I/aVL/V5/V6] Compared to ECG 09/21/2016 01:30:47 First degree AV block now present Electronically Signed On 11-26-17 08:32:11 MDT by Dashawn Salazar MD [email or web address]
[2017-11-26 06:49] LABS: BASOPHILS # (AUTO) 0.08 10*3/UL; BASOPHILS % (AUTO) 0.8 % (0-1); EOSINOPHILS # (AUTO) 0.39 10*3/UL; EOSINOPHILS % (AUTO) 3.7 % (0-8); Hematocrit [HCT] 45.7 % (42.0-52.0); Hemoglobin [HGB] 15.9 g/dL (14.0-18.0); LYMPHOCYTES # (AUTO) 1.17 10*3/uL; MEAN CORPUSCULAR HEMOGLOBIN 31.3 PG (27-31); MEAN CORPUSCULAR HGB CONC 34.8 g/dL (33-37); MEAN PLATELET VOLUME 9.9 FL (7.4-12.2); MONOCYTES % (AUTO) 11.5 % (5-15); NEUTROPHILS # (AUTO) 7.57 10*3/UL; NEUTROPHILS % (AUTO) 72.6 % (50-80); RED BLOOD COUNT 5.08 10^6/uL (4.70-6.10)
[2017-11-26 06:54] LABS: PLATELET MORPHOLOGY COMMENT NORMAL MORPHOLOGY (NORM); RBC MORPHOLOGY COMMENT NORMAL MORPHOLOGY (NORM); WBC MORPHOLOGY COMMENT NORMAL MORPHOLOGY (NORM)
--- NOTE | 2017-11-26 06:57 | PDOC ---
Fall HPI - General Chief Complaint: Fall Stated Complaint: FALL, HEMATOMA TO HEAD Date Seen by Provider: 11/26/17 Time Seen by Provider: 06:10 Source: POSITIVE: Patient Exam Limitations: POSITIVE: No limitations Nurse's Notes Reviewed & Considered: Yes - History of Present Illness Initial Comments: The patient is a 77-year-old male who is evaluated after a fall at home. He states that he had gotten up and take his medication. He was sitting at the computer looking [employer]. When he got up he states he felt weak and lightheaded and actually fell hitting the back of his head. He doesn't think that he completely lost consciousness however he states he was dazed. He has some bleeding from the back of his head and currently has a headache. He denies any neck or back pain. He denies any chest pain or shortness of breath. He states that he has been having some problems with low blood pressure. He also states that for the past several days he has not been feeling well in general. He reports nausea and general malaise. He denies any vomiting or diarrhea. He states that his appetite has been poor although he did eat last night. He denies taking any blood thinner medications currently except for aspirin. He is allergic to tetanus vaccine stating that it caused his joints to lock up and therefore he does not take it. Have you received a tetanus shot in the past 10 years?: Unknown - Patient Home Medications Home Medications: Home Medications aspirin 81 mg tablet,delayed release 81 mg PO QDAY tab 01/31/17 cholecalciferol (vitamin D3) 1,000 unit tablet 1,000 unit PO QDAY #30 tab docusate sodium 100 mg tablet 200 mg PO QHS #60 tab 01/31/17 ibuprofen 200 mg tablet 800 mg PO BID PRN #240 tab 01/31/17 lisinopril 5 mg tablet 5 mg PO QDAY #30 tab 01/31/17 multivit,Ca,min-iron 8 mg-folic acid 200 mcg-lycopene 600 mcg tablet 1 tab PO QDAY tab 01/31/17 sitagliptin 100 mg tablet 100 mg PO QDAY #90 tab 01/31/17 metoprolol succinate ER 25 mg tablet,extended release 24 hr 12.5 mg PO QDAY #45 tab 02/26/17 furosemide 40 mg tablet 40 mg PO QAM #90 tab 04/21/17 atorvastatin 40 mg tablet 40 mg PO QHS #90 tab 09/08/17 celecoxib 200 mg capsule 200 mg PO BID #180 cap 09/08/17 digoxin 125 mcg tablet 125 mcg PO QDAY #90 tab 09/08/17 glipizide 5 mg-metformin 500 mg tablet 2 tab PO BID #360 tab 09/08/17 potassium chloride ER 10 mEq capsule,extended release 10 meq PO QDAY #90 cap 07/23 dapagliflozin 10 mg tablet 10 mg PO QDAY #28 tab 09/29/17 - Patient Allergies Allergies/Adverse Reactions: Allergies 3 Allergy/AdvReac Type Severity Reaction Status Date / Time Tetanus Vaccines and Toxoid AdvReac Severe SWELLING/ Verified 11/26/17 06:02 [Tetanus Vaccines MUSCLE \E\E\E\E\E\E\E\T\E\E\E\E\E\E\E\ RIGIDITY Toxoid] Past Medical History - heen HEENT History: Cataracts, Hard of Hearing Additional HEENT History: left removed Cardiovascular History: Hypertension, CHF, Hyperlipidemia Additional Cardiovasular History: NE?, CHF? Respiratory History: COPD, Pneumonia Gastrointestinal History: Denies History Additional Gastrointestinal History: H/O ULCERS Genitourinary History: Denies History Endocrine History: Type 2 Diabetes (oral) Additional Endocrine History: FSBS 09/19/16 248 Musculoskeletal History: Arthritis, Gout Prosthesis or Implant: No Additional Musculoskeletal History: BRUISING AND SCABBING TO THE BACK OF THE HEAD FROM AND ASSOCIATED FALL. PATIENT FELL BACKWARDS AND STRUCK HIS HEAD ON HIS CONCRETE PATIO Neurological History: Denies History Blood Disorders: Denies History Psychiatric History: Denies History History of Sexually Transmitted Diseases: No Cancer History: Denies History In Past Year Been Physically Harmed or Verbally Threatened: No History of MDRO: No History of Other Communicable Diseases: No Tobacco Use: Never Smoker Alcohol Use: Rarely In the Past 12 Months, Have Used or Abuse Any Substance: None Previous Surgical History: Yes Type / Date of Surgery: APPY Anesthesia Reactions: No Malignant Hyperthermia: No Significant Family History: Heart disease, Cancer, Diabetes, Lung disease Past Medical History Reviewed: Reviewed - No Changes ROS - Limitations ROS Limitations: No Limitations Constitution: REPORTS: Other (General malaise). DENIES: Chills, Fever Cardiovascular: REPORTS: Blood Pressure Problem (He reports that he has problems with low blood pressure). DENIES: Chest Pain, Heart Palpitations, Edema Respiratory: DENIES: Shortness Of Breath Neurological: REPORTS: Headache, Dizziness. DENIES: Numbness, Weakness Gastrointestinal: REPORTS: Nausea. DENIES: Vomitting, Diarrhea, Black Stools, Bloody Stools Endocrine: REPORTS: Fatigue Musculoskeletal: DENIES: Lower Extremity Swelling Genitourinary: REPORTS: Denies Symptoms Eyes: REPORTS: Denies Symptoms ENT: REPORTS: Denies Symptoms Skin: DENIES: Rash Fall Physical Exam - General Appearance General Appearance: POSITIVE: Alert, Cooperative, No Acute Distress - HEENT HEENT: POSITIVE: Other (He does have a hematoma in the posterior occiput with associated tenderness) - Neck Neck: POSITIVE: Non Tender, Trachea Midline - Respiratory / CVS Respiratory / CVS: POSITIVE: Breath Sounds Normal, No Respiratory Distress, Heart Sounds Normal, Regular Rate/Rhythm Peripheral Pulses: Dorsalis-pedis (R): 2+, Dorsalis-pedis (L): 2+ - Abdomen Abdomen: Soft: (All Quadrants), Denies Tenderness: (All Quadrants), No Distention: (All Quadrants) - Neuro / Psych Neuro / Psych: POSITIVE: Oriented X3, Motor Normal, Sensation Normal - Extremities Extremity Assessment: Normal ROM: (ALL), Normal Inspection: (ALL) Fall Progress - Results Reviewed by me Xrays/CTs/US Reviewed by me: Yes Discussed with Radiologist: Yes Radiology Findings: CT of the head shows no evidence of skull fracture or intracranial hemorrhage, soft tissue hematoma on the right posterior scalp per radiologist. Lab Results Reviewed by Me: Yes CBC and BMP: 11/26/17 06:30 11/26/17 06:30 Lab Results:: Laboratory Results 3 11/26/17 11/26/17 11/26/17 06:30 06:30 06:30 WBC 10.43 RBC 5.08 Hgb 15.9 Hct 45.7 MCV 90.0 MCH 31.3 H MCHC 34.8 RDW Std Deviation 45.1 RDW Coeff of Sandra 14.0 Plt Count 185 MPV 9.9 Immature Gran % (Auto) 0.2 Neut % (Auto) 72.6 Lymph % (Auto) 11.2 Chambers % (Auto) 11.5 Eos % (Auto) 3.7 Baso % (Auto) 0.8 Immature Gran # (Auto) 0.02 Neut # (Auto) 7.57 Lymph # (Auto) 1.17 Chambers # (Auto) 1.20 H Eos # (Auto) 0.39 Baso # (Auto) 0.08 WBC Morphology Comment Normal morphology Plt Morphology Comment Normal morphology RBC Morph Comment Normal morphology Sodium 133 L Potassium 4.3 Chloride 104 Carbon Dioxide 20 L Anion Gap 9 BUN 23 H Creatinine 0.9 BUN/Creatinine Ratio 25.55 H Glucose 162 H Calculated Osmolality 283.0 Calcium 9.0 Magnesium 1.8 Total Bilirubin 0.9 AST 27 ALT 38 Alkaline Phosphatase 76 Troponin I < 0.012 C-Reactive Protein Total Protein 6.7 Albumin 3.5 Globulin 3.2 Albumin/Globulin Ratio 1.00 L Digoxin 3 11/26/17 11/26/17 06:30 06:30 WBC RBC Hgb Hct MCV MCH MCHC RDW Std Deviation RDW Coeff of Sandra Plt Count MPV Immature Gran % (Auto) Neut % (Auto) Lymph % (Auto) Chambers % (Auto) Eos % (Auto) Baso % (Auto) Immature Gran # (Auto) Neut # (Auto) Lymph # (Auto) Chambers # (Auto) Eos # (Auto) Baso # (Auto) WBC Morphology Comment Plt Morphology Comment RBC Morph Comment Sodium Potassium Chloride Carbon Dioxide Anion Gap BUN Creatinine BUN/Creatinine Ratio Glucose Calculated Osmolality Calcium Magnesium Total Bilirubin AST ALT Alkaline Phosphatase Troponin I C-Reactive Protein 4.8 H Total Protein Albumin Globulin Albumin/Globulin Ratio Digoxin 1.0 EKG Interpreted/Reviewed By Me:: Yes EKG Interpretation:: POSITIVE: Normal Sinus Rhythm, Other (Left bundle-branch block which was present on an EKG from September 2016 as well) - Patient's Progress MDM / ED Course: The patient's blood pressure lying was in the 120s over 70s. His blood sugar was 170. Orthostatics were positive with a drop in blood pressure down into the 80s systolic with standing with associated lightheadedness. He did receive 1 L bolus of normal saline. CT scan of his head shows no evidence of skull fracture or intracranial hemorrhage, he does have a soft tissue hematoma in the right posterior scalp. Blood work is essentially unremarkable with normal troponin, he does have a slightly elevated BUN and slightly elevated CRP. White count is normal. The blood on the scalp was cleaned and he does have evidence of soft tissue hematoma on his scalp with associated abrasion however there is no laceration that requires any type of repair. Findings were discussed with the patient and his family. He appears to have orthostatic hypotension associated with dehydration causing his syncopal event. The patient and his family would feel more comfortable if he was monitored in the hospital given his current state of weakness and general malaise. I did discuss patient with Dr. Paz and he is agreed to admit the patient. - Consult Counseled: POSITIVE: Patient, Family, RE: Lab Results, RE: Radiology Results, RE : DX Patient Care Time - Estimated PCT Patient Care Time (In Minutes): 40 Vital Signs - Recent Vital Signs Vital Signs: Vital Signs (Last 8 hours) Temp Pulse Pulse Pulse Pulse Resp BP 11/26/17 06:35 81 81 98 11/26/17 06:15 95.7 F L 84 18 123/68 BP BP BP Pulse Ox 11/26/17 06:35 123/68 90/52 82/48 11/26/17 06:15 95 - VS Reviewed Vital Signs Reviewed: Yes Discharge Clinical Impression: Dehydration, Orthostatic hypotension, Syncope, Scalp hematoma Discharge Disposition: Admit to Observation Condition: Fair Follow Up With: ROMAN CHENG [Primary Care Provider] -
[2017-11-26 06:58] LABS: BLOOD UREA NITROGEN 23 mg/dL (7-22); BUN/CREATININE RATIO 25.55 (6-20); SERUM ALBUMIN 3.5 g/dL (3.5-4.8)
--- NOTE | 2017-11-26 07:28 | DI ---
INDICATION: Fall TECHNIQUE: Multiple, contiguous 5 mm axial cuts of the brain are obtained from the posterior fossa to the cranial vault. No IV contrast is administered. COMPARISON: CT head 09/19/16 FINDINGS: There is a posterior right parietal scalp laceration and hematoma. There is no evidence of skull fracture. The visualized sinuses and mastoid air cells are clear. There is no evidence of acute intracranial hemorrhage or abnormal extra- axial fluid collection. There is no mass effect or midline shift. Sulci, ventricles, and basal cisterns are normal in size and configuration for patient age. There is a possible chronic lacunar infarct in the right putamen. Patchy hypoattenuation in the periventricular and deep cerebral white matter is compatible with chronic small vessel ischemic disease. The titus-white matter differentiation appears preserved. IMPRESSION: 1. No CT evidence of acute intracranial process. 2. Posterior right parietal scalp laceration and hematoma. No skull fracture.
[2017-11-26] MEDS ORDERED: CALCIUM CARBONATE 500 MG (TUMS) CHEWABLE TABLET PO PRN (10:03)
[2017-11-26] MEDS ORDERED: ONDANSETRON 4 MG/2 ML VIAL IVP PRN (10:03)
[2017-11-26] MEDS ORDERED: LIDOCAINE W/ SODIUM BICARB 0.5 ML SYR SUBD PRN (10:03)
--- NOTE | 2017-11-26 10:03 | PDOC ---
HPI - History of Present Illness Date of Service: 11/26/17 Time of Service: 10:20 Chief Complaint: Lightheadedness dizziness and a fall History of Present Illness: This is a 77 years old male with medical history significant for history of for hypertension, diabetes, dilated cardiomyopathy last ejection fraction was 40-45 % in September 2016 who was brought to the hospital after he fell at home. He said he woke up this morning was feeling fine he took his blood pressure medication. After that he went and sat in the chair browsing the computer maybe for about 20 minutes. Then he got up and he felt weak and lightheaded and fell hitting the back of his head. He is not sure whether he completely passed out or not. He said he stayed on the floor then he crawled back to another room and called his son who brought him here. There was bleeding from his head and he was having headache when they brought him to the ER. He did say the last few days he was not feeling well had some cramps in abdomen and he thought that he had the flu he took some medication as he was constipated and took medication and he had good bowel movement after that. He did have some loose stool this morning. In the ER he had a CT which did not show fracture but there was a scalp hematoma noted. He was given some fluid he was still feeling lightheaded and week and because of that he was admitted. They did check his blood pressure down in the ER and he did drop his blood pressure while standing from 123/68 to 82/48. By time he came into the floor his main complaint was just weakness he said. Past Medical History Medical History: 1. Diabetes on oral hypoglycemic agent. 2. Hypertension. 3. Hypercholesterolemia. 4. Left bundle branch block. 5. History of dilated cardiomyopathy last echo done September 2016 showed ejection fraction 40-45% Surgical History: History of appendectomy Family History: Reviewed an Not Pertinent Past Social History: He never smoked, used drink but that was 15 years ago, no drugs. Lives by himself. He still drives. He do his own meals. Tobacco Use: Never Smoker In the Past 12 Months, Have Used or Abuse Any of the Following Substance: None Alcohol Use: None Medication / Allergies Home Medications: Home Medications 3 Medication Instructions Recorded Confirmed Type aspirin 81 mg tablet,delayed 81 mg PO QDAY tab 01/31/17 11/26/17 History release cholecalciferol (vitamin D3) 1,000 1,000 unit PO QDAY #30 tab 01/31/17 11/26/17 History unit tablet docusate sodium 100 mg tablet 200 mg PO QHS #60 tab 01/31/17 11/26/17 History ibuprofen 200 mg tablet 800 mg PO BID PRN #240 tab 01/31/17 11/26/17 History lisinopril 5 mg tablet 5 mg PO QDAY #30 tab 01/31/17 11/26/17 Rx multivit,Ca,min-iron 8 mg-folic 1 tab PO QDAY tab 01/31/17 11/26/17 History acid 200 mcg-lycopene 600 mcg tablet sitagliptin 100 mg tablet 100 mg PO QDAY #90 tab 01/31/17 11/26/17 Rx metoprolol succinate ER 25 mg 12.5 mg PO QDAY #45 tab 02/26/17 11/26/17 Rx tablet,extended release 24 hr furosemide 40 mg tablet 40 mg PO QAM #90 tab 04/21/17 11/26/17 Rx atorvastatin 40 mg tablet 40 mg PO QHS #90 tab 09/08/17 11/26/17 Rx celecoxib 200 mg capsule 200 mg PO BID #180 cap 09/08/17 11/26/17 Rx digoxin 125 mcg tablet 125 mcg PO QDAY #90 tab 09/08/17 11/26/17 Rx glipizide 5 mg-metformin 500 mg 2 tab PO BID #360 tab 09/08/17 11/26/17 Rx tablet potassium chloride ER 10 mEq 10 meq PO QDAY #90 cap 09/08/17 11/26/17 Rx capsule,extended release dapagliflozin 10 mg tablet 10 mg PO QDAY #28 tab 09/29/17 11/26/17 Rx Allergies/Adverse Reactions: Allergies 3 Allergy/AdvReac Type Severity Reaction Status Date / Time Tetanus Vaccines and Toxoid AdvReac Severe SWELLING/ Verified 11/26/17 09:10 [Tetanus Vaccines MUSCLE \E\E\E\E\E\E\E\T\E\E\E\E\E\E\E\ RIGIDITY Toxoid] Review of Systems - Review of Systems All Systems: Reviewed & No Additional Complaints Except as Stated Exam - Vitals Vital Signs: Vital Signs Temperature 97.5 F Temperature Source Temporal Artery Scan Pulse Rate [Pulse Oximeter] 77 Pulse Rate [Standing] 98 Pulse Rate [Sitting] 81 Pulse Rate [Lying] 81 Respiratory Rate 20 Blood Pressure [Standing] 82/48 Blood Pressure [Sitting] 90/52 Blood Pressure [Lying] 123/68 Blood Pressure [Left Arm] 105/65 Pulse Ox 93 Oxygen Delivery Method Room Air Height 5 ft 7 in Weight 240 lb 6.4 oz - General General Appearance: No Acute Distress, Cooperative - Head Additional Head Exam Details: Hematoma with a superficial laceration noted on the back of the scalp - Eye Eye Exam: POSITIVE: Normal Appearance - ENT ENT Exam: POSITIVE: Normal Exam - Neck Neck Exam: Normal Inspection - Respiratory Respiratory Exam: POSITIVE: Clear to Auscultation - Bilaterally - Cardiovascular Cardiovascular Exam: POSITIVE: RRR - GI/Abdominal GI/Abdominal Exam: POSITIVE: Normal Bowel Sounds, Non Tender, Non Distended, Soft, No Organomegaly - Rectal Rectal Exam: POSITIVE: Deferred - External Exam: POSITIVE: Deferred Exam: POSITIVE: Deferred - Extremities Extremities Exam: POSITIVE: Normal Inspection - Back Back Exam: POSITIVE: Normal Inspection - Neurological Neurological Exam: POSITIVE: Alert, Oriented x 3, CN II-XII Intact, No Facial Droop, Speech Intact / Clear, Moves All Extremities Equally - Psychiatric Psychiatric Exam: POSITIVE: Normal Affect Results - Labs CBC and BMP: 11/26/17 06:30 11/26/17 06:30 Assessment and Plan - Patient Problems (1) Orthostatic hypotension Current Visit: Yes Status: Acute Comment: We'll give him some fluids, we'll hold his lisinoril continue with the metoprolol. 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 I think though it's probably secondary to orthostatic hypotension. We'll hold his Lasix. He said the last time he took his Lasix was Friday. Code(s): I95.1 - Orthostatic hypotension (2) Diabetes mellitus Current Visit: No Status: Chronic Onset Date: 09/25/11 Comment: Same meds Code(s): E11.9 - Type 2 diabetes mellitus without complications (3) Essential hypertension Current Visit: No Status: Chronic Onset Date: 09/23/13 Comment: His blood pressure is on the low side so we'll hold lisinopril. We'll hold the Lasix. Continue metoprolol. Code(s): I10 - Essential (primary) hypertension
[2017-11-26] MEDS: ACETAMINOPHEN 325 MG TABLET PO PRN (10:52)
[2017-11-26] MEDS: Sodium Chloride 0.9% 1,000 ML IV SCH (10:54)
[2017-11-26] MEDS: HYDROcodone-APAP 5 MG -325 MG TABLET PO PRN ×3 (16:37→23:49)
--- NOTE | 2017-11-26 18:54 | DI ---
CT Head WO Contrast,11/26/2017 6:06 PM: Clinical History: Neurological changes. Previous Exam: 12 hours prior. Findings: Multiple helically acquired CT images are obtained through the brain without contrast, and demonstrat e diffuse age-related volume loss. There is a stable cephalohematoma involving the right occipital sc alp. Intraorbital structures and paranasal sinuses are unremarkable. There is leftward deviation of the sudhir ny nasal septum. Impression: No acute intracranial pathology.
[2017-11-26] MEDS: METFORMIN HCL PO SCH (20:27)
[2017-11-26] MEDS: ATORVASTATIN 40 MG TABLET PO SCH (20:27)
[2017-11-26] MEDS: GLIPIZIDE PO SCH (20:27)
[2017-11-26] MEDS: CELECOXIB 200 MG CAPSULE PO SCH (20:27)
[2017-11-27] MEDS: Sodium Chloride 0.9% 1,000 ML IV SCH (03:40)
[2017-11-27 06:40] LABS: BASOPHILS # (AUTO) 0.06 10*3/UL; BASOPHILS % (AUTO) 0.9 % (0-1); EOSINOPHILS # (AUTO) 0.48 10*3/UL; EOSINOPHILS % (AUTO) 7.2 % (0-8); Hematocrit [HCT] 43.5 % (42.0-52.0); Hemoglobin [HGB] 14.7 g/dL (14.0-18.0); LYMPHOCYTES # (AUTO) 1.58 10*3/uL; MEAN CORPUSCULAR HEMOGLOBIN 30.7 PG (27-31); MEAN CORPUSCULAR HGB CONC 33.8 g/dL (33-37); MEAN CORPUSCULAR VOLUME 90.8 FL (80-90); MEAN PLATELET VOLUME 10.3 FL (7.4-12.2); MONOCYTES # (AUTO) 1.02 10*3/UL (0.3-0.8); MONOCYTES % (AUTO) 15.2 % (5-15); NEUTROPHILS # (AUTO) 3.52 10*3/UL; NEUTROPHILS % (AUTO) 52.7 % (50-80); RED BLOOD COUNT 4.79 10^6/uL (4.70-6.10)
[2017-11-27 06:48] LABS: BLOOD UREA NITROGEN 20 mg/dL (7-22)
[2017-11-27 06:54] LABS: PLATELET MORPHOLOGY COMMENT NORMAL MORPHOLOGY (NORM); RBC MORPHOLOGY COMMENT NORMAL MORPHOLOGY (NORM); WBC MORPHOLOGY COMMENT NORMAL MORPHOLOGY (NORM)
--- NOTE | 2017-11-27 07:40 | PDOC(PROG) ---
Date of Service: 11/27/17 Time of Service: 07:40 Interval History: Subjective Last evening he had an episode as I said where he nearly passed out and I thought this was vasovagal. No arrhythmias noted. The CT did not show new changes. No more similar episode. Having some mild headache but otherwise no other symptoms. he Is not dizzy or lightheaded. No shortness of breath or chest pain. Objective : Data - Labs CBC and BMP: 11/27/17 04:35 11/27/17 04:35 Objective : Exam - General General Appearance: No Acute Distress, Cooperative, Obese - Head Head Exam: Normal Inspection, Atraumatic - Eye Eye Exam: Normal Appearance - ENT ENT Exam: Normal Exam - Neck Neck Exam: Normal Inspection - Respiratory Respiratory Exam: Clear to Auscultation - Bilaterally - Cardiovascular Cardiovascular Exam: RRR - GI/Abdominal GI/Abdominal Exam: Normal Bowel Sounds, Non Tender, Non Distended, Soft, No Organomegaly - Rectal Rectal Exam: Deferred - External Exam: Deferred - Extremities Extremities Exam: Normal Inspection - Back Back Exam: Normal Inspection - Neurological Neurological Exam: Alert, Oriented x 3, CN II-XII Intact, No Facial Droop, Speech Intact / Clear, Moves All Extremities Equally - Psychiatric Psychiatric Exam: Normal Affect - Integumentary Integumentary Exam: Normal Color Assessment and Plan - Patient Problems (1) Orthostatic hypotension Current Visit: Yes Status: Acute Comment: Seem to be resolved. I think we'll stop the fluid. He will get the the metoprolol but will hold the lisinopril. We'll see how things will go during the day and then decide about keeping him or releasing him, I think though probably tomorrow. Code(s): I95.1 - Orthostatic hypotension (2) Diabetes mellitus Current Visit: No Status: Chronic Onset Date: 09/25/11 Comment: Same medications Code(s): E11.9 - Type 2 diabetes mellitus without complications (3) Essential hypertension Current Visit: No Status: Chronic Onset Date: 09/23/13 Comment: Continue metoprolol. Hold lisinopril. Code(s): I10 - Essential (primary) hypertension
[2017-11-27] MEDS: ASPIRIN EC 81 MG TABLET PO SCH (08:48)
[2017-11-27] MEDS: CELECOXIB 200 MG CAPSULE PO SCH ×2 (08:48→20:17)
[2017-11-27] MEDS: METOPROLOL SUCCINATE 25 MG SR 24H TABLET PO SCH (08:48)
[2017-11-27] MEDS: DIGOXIN 125 MCG TABLET PO SCH (08:48)
[2017-11-27] MEDS: GLIPIZIDE PO SCH ×2 (08:49→20:17)
[2017-11-27] MEDS: DAPAGLIFLOZIN PROPANEDIOL 10 MG PO SCH (08:49)
[2017-11-27] MEDS: METFORMIN HCL PO SCH ×2 (08:49→20:17)
[2017-11-27] MEDS ORDERED: sitaGLIPtin Tab 100 MG TAB PO SCH (09:00)
[2017-11-27] MEDS: HYDROcodone-APAP 5 MG -325 MG TABLET PO PRN (13:41)
[2017-11-27] MEDS ORDERED: Senna Tab 8.6 MG TAB PO ONE (19:22)
[2017-11-27] MEDS ORDERED: DOCUSATE 100 MG CAPSULE PO PRN (19:22)
[2017-11-27] MEDS: ATORVASTATIN 40 MG TABLET PO SCH (20:17)
[2017-11-28] MEDS: ACETAMINOPHEN 325 MG TABLET PO PRN (02:47)
[2017-11-28 04:22] VITALS: RESP 20; TEMP 97
[2017-11-28] MEDS: CELECOXIB 200 MG CAPSULE PO SCH (09:10)
[2017-11-28] MEDS: ASPIRIN EC 81 MG TABLET PO SCH (09:10)
[2017-11-28] MEDS: DIGOXIN 125 MCG TABLET PO SCH (09:11)
[2017-11-28] MEDS: DAPAGLIFLOZIN PROPANEDIOL 10 MG PO SCH (09:12)
[2017-11-28] MEDS: METOPROLOL SUCCINATE 25 MG SR 24H TABLET PO SCH (09:12)
[2017-11-28] MEDS: GLIPIZIDE PO SCH (09:13)
[2017-11-28] MEDS: METFORMIN HCL PO SCH (09:13)
[2017-11-28 09:29] VITALS: BP 126/81; O2SAT 90
--- NOTE | 2017-11-28 09:38 | DCSUMMARY ---
Hospitalization Summary Admit Date: 11/26/2017 Discharge Date: 11/28/17 Hospital Course: Discharge diagnoses 1. Postural hypotension 2. Syncope vasovagal or postural hypotension related 3. Diabetes 4. Hypertension 5. Hypercholesterolemia 6. Left bundle branch block 7. History of dilated cardiomyopathy last ejection fraction was 40-45% in September 2016 8. scalp hematoma Hospital course This is a 77 years old male with medical history significant for history of hypertension, diabetes, dilated cardiomyopathy ejection fraction was 4045% in September 2016 who was brought to the hospital after he fell at home. He said he woke up on the morning of admission was feeling fine he took his blood pressure medication. After that he went and sat in the chair browsing the computer maybe for about 20 minutes. Then he got up and he felt weak and lightheaded and he fell hitting the back of his head. he Is not sure whether he completely passed out or not. He said he stayed on the floor then he crawled back to another room and called his son who brought him to the ER. There was bleeding from the scalp and he was having headaches when they brought him to the ER. He stated that the last few days he was not feeling well and had some cramps in abdomen and he thought that he had the flu. He took some medication as he was constipated and had a good bowel movement after that. He did have some loose stool the morning he presented to the ER. In the ER he had a CT which did not show fracture a scalp hematoma was noted. He was given some fluid he was still feeling lightheaded and weak and because of that he was admitted. In the ER they did check his blood pressure and he did drop his blood pressure while standing from 123/68 when down to 82/48. We thought his symptoms are related to the postural hypotension and probably medication related. We continued with the metoprolol however we've held the lisinopril. The last time he took his Lasix was last Friday. We gave him some fluids there was an episode the day he was admitted where he felt dizzy and there is question of him passing out lasted a few seconds and resolved on its own. Did repeat a CT remained negative. I think he had probably a vasovagal or was related to postural hypotension. On the day of discharge he was feeling better his blood pressure normalized there was no postural drop to his blood pressure. We thought he could be discharged home and follow-up with his primary. I did tell him to hold lisinopril for now need to record his blood pressure numbers and follow-up with Dr. Vera then let him decide about resuming or discontinuing the lisinopril. Regarding the Lasix we told him to hold that until he notices weight gain more than 2 pounds or swelling in the legs and he can restart it. he said in the past he used to take Lasix 3 times a week instead of every day and I told him he can go back to 3 times a week. Discharge section Diet regular Activity as tolerated Medications Home Medications aspirin 81 mg tablet,delayed release 81 mg PO QDAY tab 01/31/17 [History Confirmed 11/26/17] cholecalciferol (vitamin D3) 1,000 unit tablet 1,000 unit PO QDAY #30 tab [History Confirmed 11/26/17] docusate sodium 100 mg tablet 200 mg PO QHS #60 tab 01/31/17 [History Confirmed 11/26/17] ibuprofen 200 mg tablet 800 mg PO BID PRN #240 tab 01/31/17 [History Confirmed 11/26/17] multivit,Ca,min-iron 8 mg-folic acid 200 mcg-lycopene 600 mcg tablet 1 tab PO QDAY tab 01/31/17 [History Confirmed 11/26/17] sitagliptin 100 mg tablet 100 mg PO QDAY #90 tab 01/31/17 [Rx Confirmed 11/26/17 ] metoprolol succinate ER 25 mg tablet,extended release 24 hr 12.5 mg PO QDAY #45 tab 02/26/17 [Rx Confirmed 11/26/17] furosemide 40 mg tablet 40 mg PO QAM #90 tab 04/21/17 [Rx Confirmed 11/26/17] atorvastatin 40 mg tablet 40 mg PO QHS #90 tab 09/08/17 [Rx Confirmed 11/26/17] celecoxib 200 mg capsule 200 mg PO BID #180 cap 09/08/17 [Rx Confirmed 11/26/17] digoxin 125 mcg tablet 125 mcg PO QDAY #90 tab 09/08/17 [Rx Confirmed 11/26/17] glipizide 5 mg-metformin 500 mg tablet 2 tab PO BID #360 tab 09/08/17 [Rx Confirmed 11/26/17] potassium chloride ER 10 mEq capsule,extended release 10 meq PO QDAY #90 cap 07/23 [Rx Confirmed 11/26/17] dapagliflozin 10 mg tablet 10 mg PO QDAY #28 tab 09/29/17 [Rx Confirmed 11/26/17 ] Follow-up with the PCP in 1-2 weeks Condition at discharge stable for discharge Exam - Vitals Vital Signs: Vital Signs Temperature 97.0 F Temperature Source Temporal Artery Scan Pulse Rate [Pulse Oximeter] 86 Pulse Rate [Standing] 82 Pulse Rate [Sitting] 74 Pulse Rate [Lying] 86 Pulse Rate 76 Respiratory Rate 20 Blood Pressure [Standing] 116/69 Blood Pressure [Sitting] 119/75 Blood Pressure [Lying] 124/70 Blood Pressure [Left Arm] 126/81 Pulse Ox 90 Oxygen Flow Rate 1 Oxygen Delivery Method Room Air Height 5 ft 7 in Weight 243 lb 12.8 oz - General General Appearance: No Acute Distress, Cooperative - Head Head Exam: Normal Inspection Additional Head Exam Details: the hematoma seems to be resolving. there is abrasion on the back of the scalp seem to be healing - Eye Eye Exam: POSITIVE: Normal Appearance - ENT ENT Exam: POSITIVE: Normal Exam - Neck Neck Exam: Normal Inspection - Respiratory Respiratory Exam: POSITIVE: Clear to Auscultation - Bilaterally - Cardiovascular Cardiovascular Exam: POSITIVE: RRR - GI/Abdominal GI/Abdominal Exam: POSITIVE: Normal Bowel Sounds, Non Tender, Non Distended, Soft, No Organomegaly - Rectal Rectal Exam: POSITIVE: Deferred - External Exam: POSITIVE: Deferred - Extremities Extremities Exam: POSITIVE: Normal Inspection - Back Back Exam: POSITIVE: Normal Inspection - Neurological Neurological Exam: POSITIVE: Alert, Oriented x 3, Speech Intact / Clear - Psychiatric Psychiatric Exam: POSITIVE: Normal Affect Patient Problems - Patient Problem List (1) Orthostatic hypotension Status: Acute Code(s): I95.1 - Orthostatic hypotension Category: Medical (2) Diabetes mellitus Status: Chronic Onset Date: 09/25/11 Code(s): E11.9 - Type 2 diabetes mellitus without complications Category: Medical (3) Essential hypertension Status: Chronic Onset Date: 09/23/13 Code(s): I10 - Essential (primary) hypertension Category: Medical
--- NOTE | 2017-11-28 16:43 | OTI REPORT ---
Thank you for the referral of Claude Kirk. He was seen on 11/27/17 for an occupational therapy inpatient evaluation following a fall. SUBJECTIVE: The patient is a 77-year-old male who was admitted to the hospital secondary to a fall due to a syncope episode related to orthostatic hypertension. The patient reports some pain at the time of evaluation. He complains of minimal pain in his knees, neck, head, right hand, and back. The patient reports that he lives alone here in [place]. The patient is retired. The patient is hoping to go home tomorrow once they figure out his blood pressure medication. Home set up: There are no steps to the entrance of the home. He does have one step within the home with handrails on each side. He has grab bars within the shower and a seat in the shower as well. The patient reports that he completes his dressing tasks on a lower surface so he is able to reach his feet. He does have a waste treatment operator and a sock aide at home; however, he prefers not to use them. At prior level of function the patient was driving. His [id number] assists with cleaning and laundry; however, he is able to do laundry independently. The patient does have access to two walkers at home; however, he does not use them. The patient reports that he was sitting at his computer, he got up, and had a fall and smacked the back of his head secondary to a drop in blood pressure. The patient reports the last fall that he had prior to this happened when he was outside and he tripped while backing up. The patient has Diabetes. He is on blood pressure medication. The patient reports that he is able to manage his blood pressure, blood sugar, and his oxygen at home. PAST MEDICAL HISTORY: Past medical history can be found in the patient's medical record. OBJECTIVE FINDINGS: General observations: The patient was supine in bed upon the therapist's arrival. He did agree to participate with occupational therapy evaluation. The patient's blood pressure was taken on the left arm in supine and was 122/ 62. The patient was oriented to date and reason for hospitalization as well as person and place. Bed mobility: The patient demonstrated the ability to move from supine to sitting edge of bed independently. The patient's blood pressure upon sitting was 104/71. Transfers: The patient transferred from sit to stand independently without use of adaptive device. While in standing, blood pressure was taken in the left arm and was 103/71. Nursing was notified of the blood pressure readings. Range of motion: The patient demonstrated upper extremity range of motion WFL for the shoulder, elbow, hand, and wrist. Strength: Upper extremity strength was 5/5 for the shoulder, elbow, hand, and wrist. Activities of daily living: The patient demonstrated the ability to doff his socks while sitting edge of bed. He did require minimal assistance to don socks because the bed was at a higher level per the patient's report. Ambulation: The patient ambulated to the door and back with no loss of balance with no adaptive device; however, the patient did report some shortness of breath and fatigue after approximately 15 feet of ambulation, demonstrating decreased endurance. ASSESSMENT: Problem List: Decreased activity tolerance Decreased ability to perform ADLs Decreased ability to perform functional activities Short-Term Goals: To be met by discharge from inpatient: Patient will demonstrate the ability to complete lower extremity dressing tasks independently. Patient will demonstrate an increase in standing balance and activity tolerance in order to stand at the sink x10 minutes to complete standing grooming tasks before requiring a rest break. Patient will be able to tolerate 25 minutes of upper and lower extremity strengthening tasks before requiring a rest break. Long-Term Goals: To be met following discharge from inpatient: Patient will return home and may be seen by outpatient physical therapy to increase activity tolerance. TREATMENT PLAN: Patient will be seen B.I.D during the week and one time per day over the weekend as an inpatient to address the above goals and objectives. INITIAL TREATMENT: Treatment today consisted of the initial evaluation activities only. TRI[facility]
[2017-11-28] MEDS ORDERED: sitaGLIPtin Tab 100 MG TAB PO SCH (21:00)
== END 2017-11-28 10:49 | disposition home or self-care (01) ==
LOC: MED/SURG 05:53 → ER 05:53 → MED/SURG 08:57 → UNDODISOB 11-28 10:49
PROVIDERS: ADMIT Internal Medicine; ATTEND Internal Medicine

== ENCOUNTER 2018-11-03 06:14 | Inpatient (IN) ==
[2018-11-03] MEDS ORDERED: Sodium Chloride 0.9% 1,000 ML PRIMARY IV ONE (06:34)
[2018-11-03] MEDS ORDERED: IPRATROPIUM/ALBUTEROL SULFATE 3 ML NEB NEB ONE (06:37)
--- NOTE | 2018-11-03 06:38 | EKG ---
[address] [address] Measurements Intervals [place] Rate: 84 P: 28 MO: 252 QRS: 119 QRSD: 112 T: -60 QT: 366 QTc: 407 Interpretive Statements SINUS RHYTHM WITH FIRST DEGREE AV BLOCK RIGHT AXIS DEVIATION ST DEVIATION AND MODERATE T-WAVE ABNORMALITY, CONSIDER LATERAL ISCHEMIA Compared to ECG 06/01/2018 12:49:42 T-wave abnormality still present Possible ischemia still present Electronically Signed On 11-03-18 08:07:52 MDT by Tim Macias [email or web address]
[2018-11-03 06:42] LABS: VENOUS PH 7.36 (7.32-7.42)
[2018-11-03 06:42] LABS: BASOPHILS # (AUTO) 0.05 10*3/UL; BASOPHILS % (AUTO) 0.4 % (0-1); EOSINOPHILS # (AUTO) 0.14 10*3/UL; EOSINOPHILS % (AUTO) 1.2 % (0-8); Hematocrit [HCT] 45.2 % (42.0-52.0); Hemoglobin [HGB] 14.6 g/dL (14.0-18.0); MEAN CORPUSCULAR HGB CONC 32.3 g/dL (33-37); MEAN CORPUSCULAR VOLUME 91.7 FL (80-90); MEAN PLATELET VOLUME 10.2 FL (7.4-12.2); MONOCYTES # (AUTO) 0.86 10*3/UL (0.3-0.8); MONOCYTES % (AUTO) 7.5 % (5-15); NEUTROPHILS # (AUTO) 9.06 10*3/UL; NEUTROPHILS % (AUTO) 79.2 % (50-80); RED BLOOD COUNT 4.93 10^6/uL (4.70-6.10)
[2018-11-03 06:43] LABS: PLATELET MORPHOLOGY COMMENT NORMAL MORPHOLOGY (NORM); RBC MORPHOLOGY COMMENT NORMAL MORPHOLOGY (NORM); WBC MORPHOLOGY COMMENT NORMAL MORPHOLOGY (NORM)
[2018-11-03 06:48] LABS: BLOOD UREA NITROGEN 26 mg/dL (7-22); BUN/CREATININE RATIO 28.88 (6-20); SERUM ALBUMIN 4.1 g/dL (3.5-4.8)
[2018-11-03] MEDS ORDERED: FUROSEMIDE 10 MG/1 ML - 4 ML IVP ONE (07:58)
[2018-11-03] MEDS ORDERED: Hold Metformin-See Instruction 1 EACH MIS PRN (07:59)
[2018-11-03] MEDS ORDERED: PANTOPRAZOLE IV 40 MG VIAL IVP ONE (08:05)
--- NOTE | 2018-11-03 08:32 | DI ---
XR CXR 2VW PA/LAT,11/03/2018 6:36 AM: Clinical History: Dyspnea Previous Exam: None at this facility. Findings: PA and lateral views of the chest are obtained, and demonstrate airspace disease within the right larry g base causing some silhouetting of the right hemidiaphragm and right heart border. There is mild COPD. Skeletal structures are unremarkable. Impression: Airspace disease within the right lung base. Atelectasis versus pneumonia.
--- NOTE | 2018-11-03 08:44 | DI ---
CT CTA Chest Non-Coronary WWO,11/03/2018 7:59 AM: Clinical History: Elevated d-dimer and shortness of breath Previous Exam: None at this facility. Findings: Multiple helically acquired CT images are obtained through the chest following intravenous administra tion of 65 cc of Ultravist 370. Is mild subsegmental atelectasis in the lung bases. The upper abdomen is unremarkable. The pulmonary arteries are normal without filling defect or truncation to suggest pulmonary embolism. There is mild diffuse edema. Skeletal structures are unremarkable. Impression: 1. No evidence of pulmonary embolism. 2. Mild diffuse pulmonary edema.
--- NOTE | 2018-11-03 09:39 | DI ---
US Veins, [facility]/EMILY Moraes,11/03/2018 8:03 AM: Clinical History: Leg swelling and elevated d-dimer Previous Exam: None at this facility. Findings: Multiple grayscale and color Doppler sonographic images are obtained through the deep veins of the le ft lower extremity, and demonstrate complete coaptation upon graded compression throughout. There is no echogenic thrombus. There is normal respiratory variation and augmentation. Impression: No evidence of deep venous thrombosis.
--- NOTE | 2018-11-03 09:52 | PDOC ---
Dyspnea HPI - General Chief Complaint: Respiratory Complaint Stated Complaint: INCREASING SOB Date Seen by Provider: 11/03/18 Time Seen by Provider: 06:40 Source: POSITIVE: Patient, Other (Daughter in law and son) Exam Limitations: POSITIVE: No limitations Treatment Prior to Arrival: REPORTS: None Nurse's Notes Reviewed & Considered: Yes - History of Present Illness Initial Comments: The patient is a 77-year-old male who was brought to the emergency room by his son and [id number]. Patient lives alone and he called his son and [id number] to bring him to the emergency room because he has had increased dyspnea for the past 2 weeks. Patient states he has a history of chronic shortness of breath and states he has a history of congestive heart failure and diabetes mellitus. He takes furosemide and glipizide. He is also on metoprolol and Protonix. He complains of progressive pedal edema over the last few days, left greater than right. No chest pain. No head pain. No extremity pain. Does have some chronic "heartburn". Body Location Affected: REPORTS: Chest (Increased dyspnea), Other (Pedal edema) Timing: REPORTS: Gradual Duration: >1 week (2 weeks) Severity: Moderate Quality: REPORTS: Other (Patient denies any pain anywhere except for some chronic "heartburn") Initiating Event: DENIES: Upper Respiratory Illness, Out of Medications, Sports, Exercise, Aspiration, Choking, Allergy, Exposure - Smoke, Exposure - Mold, Exposure - Other Allergen Context: REPORTS: Sleep (Dyspnea father sleep sometimes), Exertion Exacerbated By: REPORTS: Exertion Associated Symptoms: DENIES: Fever, Chills, Sweating, Chest Pain, Chest Discomfort, Left Chest, Right Chest, Central Chest, Chest Heaviness, Chest Tightness, Painful Breathing, Radiation to Back, Radiation to Jaw, Radiation to Arm, Bloody Cough, Productive Cough, Heart Racing, Leg Pain, Calf Pain, Ankle Swelling, Leg Swelling, Dizziness, Light-Headedness, Anxiety, Tingling - Hands, Tingling - Face, Muscle Spasms - Hands, Muscle Spasms - Feet Similar Symptoms Previously: Yes Recently seen/treated/hospitalized: No Any Prior Injuries Related to Current Complaint?: No - Patient Home Medications Home Medications: Home Medications aspirin 81 mg tablet,delayed release 81 mg PO QDAY tab 01/31/17 cholecalciferol (vitamin D3) 1,000 unit tablet 1,000 unit PO QDAY #30 tab 01/31/17 docusate sodium 100 mg tablet 200 mg PO QHS #60 tab 01/31/17 multivit,Ca,min-iron 8 mg-folic acid 200 mcg-lycopene 600 mcg tablet 1 tab PO QDAY tab 01/31/17 metoprolol succinate ER 25 mg tablet,extended release 24 hr 12.5 mg PO QDAY #45 tab 03/02/18 glipizide 5 mg-metformin 500 mg tablet 2 tab PO BID #360 tab 05/15/18 sitagliptin 100 mg tablet 100 mg PO QDAY #90 tab 05/21/18 pantoprazole 40 mg tablet,delayed release 40 mg PO BID #30 tablet. 06/15/18 atorvastatin 40 mg tablet 40 mg PO QHS #90 tab 09/11/18 celecoxib 200 mg capsule 200 mg PO BID #180 cap 09/11/18 digoxin 125 mcg tablet 125 mcg PO QDAY #90 tab 09/11/18 furosemide 40 mg tablet 40 mg PO QDAY PRN #90 tab 09/11/18 potassium chloride ER 10 mEq capsule,extended release 10 meq PO QDAY #90 cap 09/11/18 - Patient Allergies Allergies/Adverse Reactions: Allergies Allergy/AdvReac Type Severity Reaction Status Date / Time Tetanus Vaccines and Toxoid AdvReac Severe SWELLING/ Verified 09/28/18 09:43 [Tetanus Vaccines MUSCLE \\E\\E\\E\\E\\E\\E\\E\\T\\E\\E\\E\\E\\E\\E\\E\\ RIGIDITY Toxoid] Past Medical History - heen HEENT History: Cataracts, Hard of Hearing Additional HEENT History: left removed Cardiovascular History: Hypertension, CHF, Previous [place], Hyperlipidemia Additional Cardiovasular History: [place]?, CHF? Respiratory History: COPD, Pneumonia Gastrointestinal History: Denies History Additional Gastrointestinal History: H/O ULCERS Genitourinary History: Denies History Endocrine History: Type 2 Diabetes (oral) Additional Endocrine History: FSBS 09/19/16 248 Musculoskeletal History: Arthritis, Gout Prosthesis or Implant: No Additional Musculoskeletal History: BRUISING AND SCABBING TO THE BACK OF THE HEAD FROM AND ASSOCIATED FALL. PATIENT FELL BACKWARDS AND STRUCK HIS HEAD ON HIS CONCRETE PATIO Neurological History: Denies History Blood Disorders: Denies History Psychiatric History: Denies History History of Sexually Transmitted Diseases: No Male Reproductive History: Denies History Cancer History: Denies History In Past Year Been Physically Harmed or Verbally Threatened: No History of MDRO: Yes History of Other Communicable Diseases: No Tobacco Use: Never Smoker Alcohol Use: Rarely In the Past 12 Months, Have Used or Abuse Any Substance: None Previous Surgical History: Yes Type / Date of Surgery: APPY Anesthesia Reactions: No Malignant Hyperthermia: No Significant Family History: Heart disease, Cancer, Diabetes, Lung disease Past Medical History Reviewed: Reviewed - No Changes ROS - Limitations ROS Limitations: No Limitations Constitution: REPORTS: Denies Symptoms Cardiovascular: REPORTS: Denies Cardiac Symptoms Respiratory: REPORTS: Shortness Of Breath Neurological: REPORTS: Denies Neuro Symptoms Gastrointestinal: REPORTS: Denies GI Symptoms Endocrine: REPORTS: Denies Symptoms Musculoskeletal: REPORTS: Pedal Edema (Bilateral, left greater than right) Genitourinary: REPORTS: Denies Symptoms Eyes: REPORTS: Denies Symptoms ENT: REPORTS: Denies Symptoms Skin: REPORTS: Denies Skin Symptoms Lympathic: REPORTS: Denies Lympathic Symptoms Immunologic: POSITIVE: Denies Symptoms Psychiatric: POSITIVE: Denies Psych Symptoms Dyspnea Physical Exam - General Appearance General Appearance: REPORTS: Alert, Cooperative, No Acute Distress, No Evidence of Trauma - HEENT HEENT: POSITIVE: Head Inspection Nml, Eyes Inspection Nml, Ears Inspection Nml, Nose Inspection Nml, Oral/Dental Inspect. Nml, Pharynx Inspect. Nml, PERRL, EOMI, Other (Some jugulovenous distention) - Neck Neck: REPORTS: JVD Present - Respiratory Respiratory: REPORTS: No Respiratory Distress, No Pleuritic Chest Pain, Speaks Full Sentences, No Pain on Inspiration, Rales, Rhonchi. DENIES: Breath Sounds Normal (Mild scattered rales and rhonchi), Respiratory Distress, Fatigue, Wheezes, Prolonged Expirations, Accessory Muscle Use, Retractions, Splinting, Dull on Percussion, Decreased Air Movement, Chest Wall Tenderness, Speaks Broken Sentences, Stridor, Respiratory Failure - Cardiovascular Cardiovascular: REPORTS: Regular Rate and Rhythm, Heart Sounds Normal, Equal Pulses, Strong Pulses, No Murmur, No Gallop, No Friction Rub, No JVD Peripheral Pulses: Radial (R): 2+, Radial (L): 2+, Dorsalis-pedis (R): 2+, Dorsalis-pedis (L): 2+ - Abdomen Abdomen: Soft: (All Quadrants), Normal Bowel Sounds: (All Quadrants), Denies Tenderness: (All Quadrants), No Splenomegaly: (All Quadrants), No Hepatomegaly: (All Quadrants), No Guarding: (All Quadrants), No Rebound: (All Quadrants), No Palpable Pulse: (All Quadrants), No Palpabale Mass: (All Quadrants), No Dist ention: (All Quadrants), No Rigidity: (All Quadrants) - Skin Skin: REPORTS: Other ([place]) - Extremities Extremity: Non-Tender: (All Extremities), Normal ROM: (All Extremities), Normal Inspection: (All Extremities), Pelvis Stable: (All Extremities), Normal Tendon Exam: (All Extremities), Edema / Swelling: (RLE), (LLE) - Neurological / Psychological Neurological: POSITIVE: Affect Apporpriate, Oriented X3, 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 CTA chest shows no PE; some pulmonary edema. Lab Results Reviewed by Me: Yes CBC and BMP: 11/03/18 06:25 11/03/18 06:25 Lab Results:: Laboratory Results 11/03/18 11/03/18 11/03/18 06:25 06:25 06:25 WBC 11.44 H RBC 4.93 Hgb 14.6 Hct 45.2 MCV 91.7 H MCH 29.6 MCHC 32.3 L RDW Std Deviation 52.4 H RDW Coeff of Sandra 16.0 H Plt Count 226 MPV 10.2 Immature Gran % (Auto) 0.3 Neut % (Auto) 79.2 Lymph % (Auto) 11.4 Wolfe % (Auto) 7.5 Eos % (Auto) 1.2 Baso % (Auto) 0.4 Immature Gran # (Auto) 0.03 Neut # (Auto) 9.06 Lymph # (Auto) 1.30 Wolfe # (Auto) 0.86 H Eos # (Auto) 0.14 Baso # (Auto) 0.05 WBC Morphology Comment Normal morphology Plt Morphology Comment Normal morphology RBC Morph Comment Normal morphology D-Dimer 1166 H VBG pH VBG pCO2 VBG HCO3 VBG Base Excess Sodium 139 Potassium 4.7 Chloride 109 Carbon Dioxide 17 L Anion Gap 13 BUN 26 H Creatinine 0.9 BUN/Creatinine Ratio 28.88 H Glucose 153 H Calculated Osmolality 295.0 H Calcium 9.8 Total Bilirubin 0.9 AST 38 ALT 32 Alkaline Phosphatase 85 CK-MB (CK-2) Troponin I NT-Pro-B Natriuret Pep 5180 H Total Protein 7.5 Albumin 4.1 Globulin 3.4 Albumin/Globulin Ratio 1.20 L 11/03/18 11/03/18 11/03/18 06:25 06:25 06:32 WBC RBC Hgb Hct MCV MCH MCHC RDW Std Deviation RDW Coeff of Sandra Plt Count MPV Immature Gran % (Auto) Neut % (Auto) Lymph % (Auto) [place] % (Auto) Eos % (Auto) Baso % (Auto) Immature Gran # (Auto) Neut # (Auto) Lymph # (Auto) Wolfe # (Auto) Eos # (Auto) Baso # (Auto) WBC Morphology Comment Plt Morphology Comment RBC Morph Comment D-Dimer VBG pH 7.36 VBG pCO2 31 L VBG HCO3 17 L VBG Base Excess -8 L Sodium Potassium Chloride Carbon Dioxide Anion Gap BUN Creatinine BUN/Creatinine Ratio Glucose Calculated Osmolality Calcium Total Bilirubin AST ALT Alkaline Phosphatase CK-MB (CK-2) 3.67 Troponin I < 0.012 NT-Pro-B Natriuret Pep Total Protein Albumin Globulin Albumin/Globulin Ratio EKG Interpreted/Reviewed By Me:: Yes (ST-T abnormalities V5 and V6 and 3; unchanged from 06/01/2018) EKG Interpretation:: POSITIVE: Normal Sinus Rhythm, Normal Rate, Normal Intervals, Normal [place], Normal QRS, Abnormal EKG, Unchanged, Previous EKG Reviewed. NEGATIVE: Normal ST/T (Some nonspecific ST-T changes leads V5 the T6 and 3; unchanged from 06/01/2018) - Patient's Progress Pain Medication Addressed: POSITIVE: Not Applicable School/Work Release Addressed: POSITIVE: Not Applicable Re-Examine Time: 09:30 Re-Examine Comment: Patient given 40 mg of Lasix with diuretic response. Options of treatment discussed with patient and his [id number]. Patient has congestive heart failure with some pulmonary edema on CT scan and his BNP PE is 5180. Troponin negative. Patient admitted by hospitalist for further evaluation and treatment. Venous duplex ultrasound of both legs is read by registered pharmacy technician as showing no DVTs. Status: POSITIVE: Unchanged, Re-Examined Air Movement: POSITIVE: Fair - Consult Consult (If Yes, Name of Consulting MD & Time Called): Yes (Dr. Gudino, hospitalist [id number]) Consulting MD will see pt:: [place] [facility] [place] Counseled: POSITIVE: Patient, Family ([id number]), RE: Lab Results, RE: Radiology Results, RE: DX, RE: Need for F/U Patient Care Time - Estimated PCT Patient Care Time (In Minutes): 60 Vital Signs - Recent Vital Signs Vital Signs: Vital Signs (Last 8 hours) Temp Pulse Pulse Resp BP Pulse Ox 11/03/18 06:50 84 20 93 11/03/18 06:49 82 18 93 11/03/18 06:34 82 11/03/18 06:15 96.0 F L 85 20 113/68 96 - VS Reviewed Vital Signs Reviewed: Yes Discharge Clinical Impression: Congestive heart failure Discharge Disposition: Admit to Inpatient Patient Problem(s) Reviewed: Yes Follow Up With: ROMAN CHENG [Primary Care Provider] - Date Decision to Admit to Inpatient: 11/03/18 Time Decision to Admit to Inpatient: 09:30
[2018-11-03] MEDS ORDERED: DEXTROSE 50%-WATER SYRINGE 50 ML SYRINGE IVP PRN (11:15)
[2018-11-03] MEDS ORDERED: LIDOCAINE W/ SODIUM BICARB 0.5 ML SYR SUBD PRN (11:15)
[2018-11-03] MEDS ORDERED: Insulin Sliding Scale Protocol SUBCUT PRN (11:15)
[2018-11-03] MEDS ORDERED: Glucagon Inj Vial 1 MG/ML VIAL IM PRN (11:15)
[2018-11-03] MEDS ORDERED: DEXTROSE 31 GM GEL PO PRN (11:15)
[2018-11-03] MEDS ORDERED: FUROSEMIDE 10 MG/1 ML - 4 ML IVP SCH (12:45)
[2018-11-03] MEDS: Insulin Lispro Flexpen 300 UNIT/3 ML INSULN.PEN SUBCUT SCH ×3 (13:19→21:47)
[2018-11-03] MEDS: DOCUSATE 100 MG CAPSULE PO SCH ×2 (13:35→22:22)
[2018-11-03] MEDS: ASPIRIN EC 81 MG TABLET PO SCH (13:35)
[2018-11-03] MEDS: METOPROLOL SUCCINATE 25 MG SR 24H TABLET PO SCH (13:35)
--- NOTE | 2018-11-03 17:05 | PDOC ---
HPI - History of Present Illness Date of Service: 11/03/18 Time of Service: 16:57 Chief Complaint: Shortness of breath and abdominal pain History of Present Illness: This very pleasant 77-year-old male with known congestive heart failure, COPD although he does not use oxygen, hypertension, obesity, and diabetes mellitus type II, who comes in stating that he has had worsened shortness of breath. He feels much worse when he is laying down and has orthopnea. He has not noticed a lot of increased swelling in his legs. He denies fever or chills or cough. He has oxygen at home but does not use it. He absolutely and adamantly refuses to have any chemical stress test or heart catheterization. The patient states that he felt like this could be congestive heart failure, but he states he is always told that the case. He was with his daughter at bedside. The patient states that he also has had abdominal pain upwards in the last month and really over the last 6 months. He states that is mostly midepigastric and right upper quadrant in nature. Seems to be worse with chili, popcorn which really made it worse this weekend, and foods of that nature. He has not had any fevers, no nausea or vomiting, no diarrhea or constipation. He denies weight loss. He has not had any hematemesis. He refuses to do an EGD. He tried Protonix in the past, and that worked, although over the last 4 weeks or so it has not worked. He still has his gallbladder and has not had any workup on his gallbladder but he told me he would refuse a HIDA scan as it's a nuclear medicine study. I did see that the patient had a prior CT scan here and reviewed that from the abdomen and pelvis and there did not appear to be any acute issues with the gallbladder at that time. Past Medical History Medical History: 1. Diabetes on oral hypoglycemic agent. 2. Hypertension. 3. Hypercholesterolemia. 4. Left bundle branch block. 5. History of dilated cardiomyopathy and I will update echocardiogram tomorrow. 6. COPD but does not use oxygen. 7. GERD most likely Surgical History: History of appendectomy Pertinent Family History: Significant for heart disease. Past Social History: He never smoked, used drink but that was 15 years ago, no drugs. Lives by himself. He still drives. He do his own meals. Tobacco Use: Never Smoker In the Past 12 Months, Have Used or Abuse Any of the Following Substance: None Alcohol Use: None Medication / Allergies Home Medications: Home Medications Medication Instructions Recorded Confirmed aspirin 81 mg tablet,delayed 81 mg PO QDAY tab 01/31/17 11/03/18 release cholecalciferol (vitamin D3) 1,000 1,000 unit PO QDAY #30 tab 01/31/17 11/03/18 unit tablet docusate sodium 100 mg tablet 200 mg PO QHS #60 tab 01/31/17 11/03/18 metoprolol succinate ER 25 mg 12.5 mg PO QDAY #45 tab 03/02/18 11/03/18 tablet,extended release 24 hr glipizide 5 mg-metformin 500 mg 2 tab PO BID #360 tab 05/15/18 11/03/18 tablet sitagliptin 100 mg tablet 100 mg PO QDAY #90 tab 05/21/18 11/03/18 pantoprazole 40 mg tablet,delayed 40 mg PO BID #30 tablet. 06/15/18 11/03/18 release atorvastatin 40 mg tablet 40 mg PO QHS #90 tab 09/11/18 11/03/18 celecoxib 200 mg capsule 200 mg PO BID #180 cap 09/11/18 11/03/18 digoxin 125 mcg tablet 125 mcg PO QDAY #90 tab 09/11/18 11/03/18 furosemide 40 mg tablet 40 mg PO QDAY PRN #90 tab 09/11/18 11/03/18 potassium chloride ER 10 mEq 10 meq PO QDAY #90 cap 09/11/18 11/03/18 capsule,extended release Allergies/Adverse Reactions: Allergies Allergy/AdvReac Type Severity Reaction Status Date / Time Tetanus Vaccines and Toxoid AdvReac Severe SWELLING/ Verified 09/28/18 09:43 [Tetanus Vaccines MUSCLE \\E\\E\\E\\E\\E\\E\\E\\T\\E\\E\\E\\E\\E\\E\\E\\ RIGIDITY Toxoid] Review of Systems - Review of Systems All Systems: Reviewed & No Additional Complaints Except as Stated (I did a 12 point review systems and it was negative other than that discussed below and in the history of present illness.) Exam - Vitals Vital Signs: Vital Signs Temperature 97 F Temperature Source Temporal Artery Scan Pulse Rate [Pulse Oximeter 83 Right] Pulse Rate [left middle finger 90 ] Pulse Rate 92 Respiratory Rate 22 Blood Pressure [Right Arm] 121/83 Blood Pressure [Left Arm] 107/78 Pulse Ox [left middle finger] 97 Pulse Ox 96 Oxygen Flow Rate [left middle 1 finger] Oxygen Flow Rate 1 Oxygen Delivery Method [left Nasal Cannula middle finger] Oxygen Delivery Method Nasal Cannula Height 5 ft 6 in Weight 241 lb - General General Appearance: No Acute Distress, Cooperative - Head Head Exam: Normal Inspection, Normocephalic, Atraumatic - Eye Eye Exam: POSITIVE: No Scleral Icterus - ENT ENT Exam: POSITIVE: Mucous Membranes Moist - Neck Neck Exam: Normal Inspection, No Tenderness, No Lymphadenopathy, No Thyromegaly, JVP is Raised - Respiratory Respiratory Exam: POSITIVE: Breathing Non Labored, Normal to Percussion and Palpation, Crackles (Fine crackles in bases) - Cardiovascular Cardiovascular Exam: POSITIVE: RRR, No Murmur, No Clicks, No Gallops, No Rubs, JVD - GI/Abdominal GI/Abdominal Exam: POSITIVE: Normal Bowel Sounds, Non Tender, Non Distended, Soft - Rectal Rectal Exam: POSITIVE: Deferred - External Exam: POSITIVE: Deferred Exam: POSITIVE: Deferred - Extremities Extremities Exam: POSITIVE: No Clubbing Present, No Cyanosis Present, +1 Edema Additional Extremities Exam Details: Wrist deformities consistent with arthritis - Back Back Exam: POSITIVE: Normal Inspection, No CVA Tenderness - Neurological Neurological Exam: POSITIVE: Alert, Oriented x 3, No Facial Droop, Speech Intact / Clear, Moves All Extremities Equally - Psychiatric Psychiatric Exam: POSITIVE: Normal Affect, Normal Mood - Integumentary Integumentary Exam: POSITIVE: Normal Color, Warm, Dry, Intact Results - Labs CBC and BMP: 11/03/18 06:25 11/03/18 06:25 Additional Lab Results: Laboratory Results 11/03/18 11/03/18 11/03/18 06:25 06:25 06:25 WBC 11.44 H RBC 4.93 Hgb 14.6 Hct 45.2 MCV 91.7 H MCH 29.6 MCHC 32.3 L RDW Std Deviation 52.4 H RDW Coeff of Sandra 16.0 H Plt Count 226 MPV 10.2 Immature Gran % (Auto) 0.3 Neut % (Auto) 79.2 Lymph % (Auto) 11.4 [place] % (Auto) 7.5 Eos % (Auto) 1.2 Baso % (Auto) 0.4 Immature Gran # (Auto) 0.03 Neut # (Auto) 9.06 Lymph # (Auto) 1.30 [place] # (Auto) 0.86 H Eos # (Auto) 0.14 Baso # (Auto) 0.05 WBC Morphology Comment Normal morphology Plt Morphology Comment Normal morphology RBC Morph Comment Normal morphology D-Dimer 1166 H VBG pH VBG pCO2 VBG HCO3 VBG Base Excess Sodium 139 Potassium 4.7 Chloride 109 Carbon Dioxide 17 L Anion Gap 13 BUN 26 H Creatinine 0.9 BUN/Creatinine Ratio 28.88 H Glucose 153 H Calculated Osmolality 295.0 H Calcium 9.8 Total Bilirubin 0.9 AST 38 ALT 32 Alkaline Phosphatase 85 CK-MB (CK-2) Troponin I NT-Pro-B Natriuret Pep 5180 H Total Protein 7.5 Albumin 4.1 Globulin 3.4 Albumin/Globulin Ratio 1.20 L Digoxin 11/03/18 11/03/18 11/03/18 06:25 06:25 06:32 WBC RBC Hgb Hct MCV MCH MCHC RDW Std Deviation RDW Coeff of Sandra Plt Count MPV Immature Gran % (Auto) Neut % (Auto) Lymph % (Auto) [place] % (Auto) Eos % (Auto) Baso % (Auto) Immature Gran # (Auto) Neut # (Auto) Lymph # (Auto) [place] # (Auto) Eos # (Auto) Baso # (Auto) WBC Morphology Comment Plt Morphology Comment RBC Morph Comment D-Dimer VBG pH 7.36 VBG pCO2 31 L VBG HCO3 17 L VBG Base Excess -8 L Sodium Potassium Chloride Carbon Dioxide Anion Gap BUN Creatinine BUN/Creatinine Ratio Glucose Calculated Osmolality Calcium Total Bilirubin AST ALT Alkaline Phosphatase CK-MB (CK-2) 3.67 Troponin I < 0.012 NT-Pro-B Natriuret Pep Total Protein Albumin Globulin Albumin/Globulin Ratio Digoxin 11/03/18 11/03/18 06:32 14:10 WBC RBC Hgb Hct MCV MCH MCHC RDW Std Deviation RDW Coeff of Sandra Plt Count MPV Immature Gran % (Auto) Neut % (Auto) Lymph % (Auto) [place] % (Auto) Eos % (Auto) Baso % (Auto) Immature Gran # (Auto) Neut # (Auto) Lymph # (Auto) [place] # (Auto) Eos # (Auto) Baso # (Auto) WBC Morphology Comment Plt Morphology Comment RBC Morph Comment D-Dimer VBG pH VBG pCO2 VBG HCO3 VBG Base Excess Sodium Potassium Chloride Carbon Dioxide Anion Gap BUN Creatinine BUN/Creatinine Ratio Glucose Calculated Osmolality Calcium Total Bilirubin AST ALT Alkaline Phosphatase CK-MB (CK-2) Troponin I < 0.012 NT-Pro-B Natriuret Pep Total Protein Albumin Globulin Albumin/Globulin Ratio Digoxin 1.1 - EKG Data -: EKG Interpreted by Me Rate: Normal EKG Shows Normal: Sinus Rhythm - EKG Data EKG Interpretation: Other (Nonspecific ST changes in V4, V5, V6) - Imaging Status: Image Reviewed by Me (Chest x-ray, on my view shows cardiomegaly and I think there is probably some fluid overload. I think CT scan of the chest also shows some fluid overload but no pneumonia.) Assessment and Plan - Patient Problems (1) CHF exacerbation Current Visit: Yes Status: Acute Code(s): I50.9 - Heart failure, unspecified Qualifiers: Heart failure type: systolic Qualified Code(s): I50.23 - Acute on chronic systolic (congestive) heart failure (2) COPD (chronic obstructive pulmonary disease) Current Visit: Yes Status: Acute Code(s): J44.9 - Chronic obstructive pulmonary disease, unspecified Qualifiers: COPD type: emphysema Emphysema type: unspecified Qualified Code(s): J43.9 - Emphysema, unspecified (3) GERD (gastroesophageal reflux disease) Current Visit: Yes Status: Acute Code(s): K21.9 - Gastro-esophageal reflux disease without esophagitis Qualifiers: Esophagitis presence: esophagitis presence not specified Qualified Code(s): K21.9 - Gastro-esophageal reflux disease without esophagitis (4) Epigastric abdominal pain Current Visit: Yes Status: Acute Code(s): R10.13 - Epigastric pain (5) Hypertension Current Visit: Yes Status: Acute Code(s): I10 - Essential (primary) hypertension Qualifiers: Hypertension type: essential hypertension Qualified Code(s): I10 - Essential (primary) hypertension (6) Hypercholesterolemia Current Visit: Yes Status: Acute Code(s): E78.00 - Pure hypercholesterolemia, unspecified (7) Diabetes mellitus type II, controlled Current Visit: Yes Status: Acute Code(s): E11.9 - Type 2 diabetes mellitus without complications Qualifiers: Diabetes mellitus halfway insulin use: without halfway use Diabetes mellitus complication status: without complication Qualified Code(s): E11.9 - Type 2 diabetes mellitus without complications (8) Obesity Current Visit: Yes Status: Acute Code(s): E66.9 - Obesity, unspecified Qualifiers: Obesity type: due to excess calories Obesity classification: adult class 2 (BMI 35 - 39.9) Serious obesity comorbidity presence: with serious comorbidity Body mass index: BMI 38.0-38.9 Qualified Code(s): E66.01 - Morbid (severe) obesity due to excess calories; Z68.38 - Body mass index (BMI) 38.0-38.9, adult - Assessment / Plan Additional Assessment/Plan Details: Patient is admitted, I will increase his Lasix to 80 mg IV twice a day for diuresis. Daily weights. Continue regular diet. Hold by mouth medications for diabetes, particularly with contrast dated today and use sliding scale insulin with sugar checks. Check ultrasound of abdomen tomorrow to look at gallbladder and on my review of his prior CT scan result he had some calcifications in the pancreatic head so I will also check a lipase level. Continue proton pump inhibitor. He does not have "red flag" symptoms to suggest that he needs an EGD today and he would r efuse it anyway as he told me in his history. Ultimately if ultrasound is negative, I'm not sure where we would go next with the workup. HEENT be willing to have his gallbladder out if this is biliary dyskinesia issues, but I think first we need to help get his congestive heart failure under better control. If he is not willing to undergo stress testing or cardiac catheterization, it may be very difficult to risk stratify the patient for any particular elective surgeries. Increase potassium with diuresis. Check echocardiogram. Patient may benefit from an MALA inhibitor. He is already on a beta karen. He is now full code. Plan above discussed with the patient and his daughter at bedside and they agreed.
[2018-11-03] MEDS ORDERED: ATORVASTATIN 40 MG TABLET PO SCH (21:00)
[2018-11-03] MEDS: PANTOPRAZOLE 40 MG TABLET PO SCH (22:22)
[2018-11-03] MEDS: POTASSIUM CHLORIDE 20 MEQ TAB PO SCH (22:23)
[2018-11-04 06:00] LABS: BLOOD UREA NITROGEN 27 mg/dL (7-22); SERUM ALBUMIN 4.2 g/dL (3.5-4.8)
[2018-11-04] MEDS: Insulin Lispro Flexpen 300 UNIT/3 ML INSULN.PEN SUBCUT SCH ×2 (07:08→12:05)
[2018-11-04] MEDS ORDERED: Magnesium Sulfate 2gm (Premix) 2 GM/50 ML BAG IV ONE (08:23)
[2018-11-04] MEDS ORDERED: DIGOXIN 125 MCG TABLET PO SCH (09:00)
[2018-11-04] MEDS ORDERED: ENOXAPARIN SODIUM 40 MG/0.4 ML SYRINGE SUBCUT SCH (09:00)
[2018-11-04] MEDS ORDERED: Multivitamin Tab 1 TAB PO SCH (09:00)
[2018-11-04] MEDS ORDERED: CHOLECALCIFEROL 1000 IU TABLET PO SCH (09:00)
[2018-11-04] MEDS: FUROSEMIDE 10 MG/1 ML - 4 ML IVP SCH ×2 (09:10→13:21)
[2018-11-04] MEDS: ASPIRIN EC 81 MG TABLET PO SCH (09:11)
[2018-11-04] MEDS: POTASSIUM CHLORIDE 20 MEQ TAB PO SCH (09:11)
[2018-11-04] MEDS: DOCUSATE 100 MG CAPSULE PO SCH (09:12)
[2018-11-04] MEDS: METOPROLOL SUCCINATE 25 MG SR 24H TABLET PO SCH (09:12)
[2018-11-04] MEDS: PANTOPRAZOLE 40 MG TABLET PO SCH (09:12)
[2018-11-04 13:20] VITALS: BP 102/62; RESP 20; TEMP 97.5
--- NOTE | 2018-11-04 14:53 | DI ---
ABDOMINAL ULTRASOUND, 11/04/2018 7:00 AM: Clinical History: Right upper quadrant and epigastric pain. Previous Exam: None at this facility. Comparison is made with the recent CT angiogram of the chest fr 11/03/2018. Technique: Right and left upper quadrants scanned in multiple projections. Color Doppler ultrasound p erformed. Comment: The patient is morbidly obese. This detracts from the overall quality and significantly limi ts the diagnostic quality of the exam with respect to small or fine detail structures. Liver Texture: Diffuse fatty infiltration. Liver Size: Hepatomegaly. 160 mm. Gallbladder: Moderately distended. No gallstones. Normal gallbladder wall thickness. Negative Abdul' s sign. Common Bile Duct: 5 mm. Pancreas: Limited views of only the neck and body of the pancreas and these portions are normal. Kidneys: Normal right and left kidneys. Spleen: Normal. IVC and Aorta: Normal IVC and aorta. READIN. Technically difficult exam due to the patient's large body habitus. 2. Hepatomegaly with diffuse fatty infiltration. 3. Gallbladder appears normal although it was difficult to visualize because of the patient's body h abitus. Common duct is normal at 5 mm. 4. Both kidneys, the spleen, IVC, aorta, and very limited views of the pancreas are normal.
--- NOTE | 2018-11-04 15:19 | DCSUMMARY ---
Hospitalization Summary Hospital Course: Final Discharge Diagnosis: Current Visit Problems Problem Status Onset Code CHF (congestive heart failure) Chronic 07/06/14 I50.9 Diagnostic Data, Laboratory Data, and Procedures of Signifigance: Laboratory Results 11/04/18 11/04/18 11/04/18 05:34 05:34 14:00 Sodium 143 Potassium 4.3 Chloride 106 Carbon Dioxide 25 Anion Gap 12 BUN 27 H Creatinine 1.0 BUN/Creatinine Ratio 27.00 H Glucose 148 H Calculated Osmolality 303.0 H Calcium 10.0 Magnesium 1.7 Total Bilirubin 1.5 H AST 32 ALT 29 Alkaline Phosphatase 87 Troponin I 0.017 < 0.012 NT-Pro-B Natriuret Pep 6050 H Total Protein 7.7 Albumin 4.2 Globulin 3.5 Albumin/Globulin Ratio 1.20 L Lipase 83 History and Physical pertinent to Admission: Past Medical History Medical History: 1. Diabetes on oral hypoglycemic agent. 2. Hypertension. 3. Hypercholesterolemia. 4. Left bundle branch block. 5. History of dilated cardiomyopathy and I will update echocardiogram tomorrow. 6. COPD but does not use oxygen. 7. GERD most likely Surgical History: History of appendectomy Pertinent Family History: Significant for heart disease. Past Social History: He never smoked, used drink but that was 15 years ago, no drugs. Lives by himself. He still drives. He do his own meals. Tobacco Use: Never Smoker In the Past 12 Months, Have Used or Abuse Any of the Following Substance: None Alcohol Use: None Course of Hospitalization: This very nice 77-year-old gentleman with history of congestive heart failure, and COPD, hypertension, obesity and diabetes comes into the hospital worsening shortness of breath and some orthopnea and some increased leg swelling he was admitted to the hospital and he refused a chemical stress test and heart catheterization in the past ultrasound of his abdomen was done no acute cholecystitis but it did show fatty liver and the patient is made aware and told him to have some weight loss and some counseling for weight loss he refused also to do an EGD in the past was admitted and put on Lasix 80 mg IV twice a day refused Sal he took this morning's dose of Lasix very hard to measure how much urine he put out since he has not been playing in the measuring cup. But he feels well well and back to his normal self he refuses his Lasix this afternoon he states he is tired of it does not want to take it at this time he said he feels great and would like to go home. His legs don't look to have any pitting edema his lungs are clear back to his normal self I told to resume his Lasix at home he said he has multiple bottles of it I told him to be on 40 twice a day with potassium supplementation and to follow-up with his primary care physician. Denies chest pain nausea or vomiting On the date of discharge, the patient was examined: Gen.: No acute distress, alert, nontoxic Heart: Regular rate and rhythm, no murmurs, clicks, gallops, or rubs Lungs: Clear to auscultation bilaterally, breathing is nonlabored Abdomen/GI: Normal tones on auscultation, soft, nontender, nondistended Musculoskeletal/extremities: No clubbing, cyanosis, or edema Vitals reviewed and are listed below Assessment and Plan: 1. As per discharge assessments above 2. Disposition: Home 3. Condition on discharge, stable and improved. 4. Diet: regular diet 5. Activities: resume normal activities 6. Follow-Up: 1. PCP 2. 7. Medications at the Time of Discharge: Home Medications Medication Instructions Recorded Confirmed aspirin 81 mg tablet,delayed 81 mg PO QDAY tab 01/31/17 11/03/18 release cholecalciferol (vitamin D3) 1,000 1,000 unit PO QDAY #30 tab 01/31/17 11/03/18 unit tablet docusate sodium 100 mg tablet 200 mg PO QHS #60 tab 01/31/17 11/03/18 multivit,Ca,min-iron 8 mg-folic 1 tab PO QDAY tab 01/31/17 11/03/18 acid 200 mcg-lycopene 600 mcg tablet metoprolol succinate ER 25 mg 12.5 mg PO QDAY #45 tab 03/02/18 11/03/18 tablet,extended release 24 hr glipizide 5 mg-metformin 500 mg 2 tab PO BID #360 tab 05/15/18 11/03/18 tablet sitagliptin 100 mg tablet 100 mg PO QDAY #90 tab 05/21/18 11/03/18 pantoprazole 40 mg tablet,delayed 40 mg PO BID #30 tablet. 06/15/18 11/03/18 release atorvastatin 40 mg tablet 40 mg PO QHS #90 tab 09/11/18 11/03/18 celecoxib 200 mg capsule 200 mg PO BID #180 cap 09/11/18 11/03/18 digoxin 125 mcg tablet 125 mcg PO QDAY #90 tab 09/11/18 11/03/18 furosemide 40 mg tablet 40 mg PO QDAY PRN #90 tab 09/11/18 11/03/18 potassium chloride ER 10 mEq 10 meq PO QDAY #90 cap 09/11/18 11/03/18 capsule,extended release empagliflozin 25 mg tablet 25 mg Tablet#8 Samples 09/28/18 11/03/18 Dapagliflozin Propanediol [Farxiga] 10 mg PO DAILY 11/03/18 11/03/18 8. Time, care, counseling and coordination of care for this discharge is greater than 30 minutes. Exam - Vitals Vital Signs: Vital Signs Temperature 97.5 F Temperature Source Oral Pulse Rate [Pulse Oximeter 89 Right] Pulse Rate [left middle finger 89 ] Pulse Rate 89 Respiratory Rate 20 Blood Pressure [Right Arm] 102/62 Blood Pressure [Left Arm] 113/72 Pulse Ox [left middle finger] 92 Pulse Ox 92 Oxygen Flow Rate [left middle 1 finger] Oxygen Flow Rate 1 Oxygen Delivery Method [left Room Air middle finger] Oxygen Delivery Method Room Air Height 5 ft 6 in Weight 232 lb
[2018-11-04 15:57] VITALS: O2SAT 94
== END 2018-11-04 16:38 | disposition home or self-care (01) | DRG 293 ==
LOC: ER 06:14 → MED/SURG 10:42
PROVIDERS: ADMIT Family Medicine; ATTEND Family Medicine